=== PATIENT | female | born 1940 | race Caucasian/White ===

== ENCOUNTER 2018-11-21 09:10 | Outpatient (CLI) | payer MEDICARE, SELFPAY ==
[2018-11-21 09:30] VITALS: BMI 28.9
[2018-11-21 09:59] LABS: Hematocrit 28.1 % (37.0-47.0); Hemoglobin 8.6 g/dL (12.2-16.2)
--- NOTE | 2018-11-21 11:53 | PC.NURSE ---
1045: Spoke with Dr. Best on H/H from [place] being Hgb, 7.0 and Hct 22.5. Lab at [facility] is resulted as Hgb, 8.6, Hct 28.1. Clarifying if there is a need to still transfuse 2 units? Per Dr. Best he still wants patient to transfuse 2 units of PRBC's. 1105: Lab called patient has an antibody. Spoke with Dr. Best at this time, ok to hold blood transfusion today and give tomorrow 11-22-18. Called and spoke with patient's nurse Simi at [facility]. Updated her on patient. Patient will come back to [facility] tomorrow around 0900 to receive ordered blood transfusion.
== END 2018-11-21 11:53 | disposition home or self-care (01) ==
PROVIDERS: PCP Nurse Practitioner Family; Visit Provider Nurse Practitioner Family
DX: D64.9 Anemia, unspecified (principal)
CPT/HCPCS: 36415; 36430; 85014; 85018; 86850; 86870

== ENCOUNTER 2018-11-22 08:58 | Inpatient (IN) ==
--- NOTE | 2018-11-22 14:46 | Non-Invasive Vascular Report ---
"Venous Exam IMPRESSIONS No evidence of deep or superficial vein thrombosis involving the right lower extremity and left lower extremity History: Bilateral lower extremity pain. Edema of the right leg. PMH: Deep vein thrombosis. Factor V Leiden. Risk factors: Hypertension. Obese. Complete lower extremity venous duplex evaluation. Doppler flow study including spectral analysis, color and rivas scale imaging. Location: Bedside. Patient status: Inpatient. Tables: Venous flow and imaging: + + + + |Location |Overall |Flow properties | + + + + |Right common femoral |Patent |Normal phasicity; | | | |spontaneous; normal | | | |augmentation; compressible | + + + + |Right saphenofemoral |Patent |Compressible | |junction | | | + + + + |Right profunda femoral |Patent |Compressible | + + + + |Right femoral |Patent |Normal phasicity; | | | |spontaneous; normal | | | |augmentation; compressible;| | | |no reflux | + + + + |Right greater saphenous |Patent |Normal phasicity; | | | |spontaneous; normal | | | |augmentation; compressible | + + + + |Right popliteal |Difficult | | | |study | | + + + + |Right posterior tibial |Patent |Compressible | + + + + |Right peroneal |Patent |Compressible | + + + + |Right gastrocnemius |Difficult | | | |study | | + + + + |Right soleal |Difficult | | | |study | | + + + + |Left common femoral |Patent |Normal phasicity; | | | |spontaneous; normal | | | |augmentation; compressible | + + + + |Left saphenofemoral junction|Patent |Compressible | + + + + |Left profunda femoral |Patent |Compressible | + + + + |Left femoral |Patent |Normal phasicity; | | | |spontaneous; normal | | | |augmentation; compressible | + + + + |Left greater saphenous |Patent |Normal phasicity; | | | |spontaneous; normal | | | |augmentation; compressible | + + + + |Left popliteal |Difficult | | | |study | | + + + + |Left posterior tibial |Patent |Compressible | + + + + |Left peroneal |Patent |Compressible | + + + + |Left gastrocnemius |Difficult | | | |study | | + + + + |Left soleal |Difficult | | | |study | | + + + + (Report amended ) Electronically signed by: Malcolm Calixto [id number]"
[2018-11-22 14:53] LABS: Basophils # 0.1 K/mm3 (0-0.2); Eosinophils # 0.1 K/mm3 (0.0-0.4); Eosinophils % 0.7 % (0.1-12.0); Hematocrit 26.1 % (37.0-47.0); Hemoglobin 8.3 g/dL (12.2-16.2); Lymphocytes # 1.5 K/mm3 (0.7-4.5); Lymphocytes % 20.4 % (10-50); Mean Corpuscular HGB Conc 31.8 g/dL (31.8-35.4); Mean Corpuscular Hemoglobin 27.7 pg (27.0-31.2); Mean Corpuscular Volume 87.1 fl (81-99); Monocytes # 0.7 K/mm3 (0.1-1.0); Monocytes % 8.9 % (1.7-9.3); Neutrophils # 5.2 K/mm3 (1.8-7.8); Platelet Count 425 K/mm3 (142-424); Red Blood Count 2.99 M/mm3 (4.20-5.40); Red Cell Distribution Width 17.8 % (11.5-17.5); White Blood Count 7.5 K/mm3 (4.8-10.8)
[2018-11-22 14:59] LABS: INR 1.54 (0.9-1.1); Prothrombin Time 15.7 seconds (9.4-11.8)
[2018-11-22 15:03] LABS: Activated Partial Thrombo Time 49.1 seconds (23.6-34.0)
[2018-11-22 15:10] LABS: Alanine Aminotransferase 16 U/L (12-78); Albumin Level 1.1 gm/dL (3.4-5.0); Albumin/Globulin Ratio 0.2 (1.1-1.8); Alkaline Phosphatase 66 U/L (46-116); Anion Gap 8.1 mEq/L (5-15); Aspartate Amino Transferase 22 U/L (15-37); Bilirubin,Total 1.1 mg/dL (0.2-1.0); Blood Urea Nitrogen 15 mg/dL (7-18); Calcium 8.3 mg/dL (8.5-10.1); Carbon Dioxide 30 mmol/L (21.0-32.0); Chloride 101 mmol/L (98-107); Glucose 111 mg/dL (74-106); Potassium 4.1 mmoL/L (3.5-5.1); Sodium 135 mmol/L (136-145); Total Protein,Serum 7.1 gm/dL (6.4-8.2)
--- NOTE | 2018-11-22 15:26 | History & Physical Report ---
*Admission Date: 11/22/18 <Nisha Jacinto - 11/22/18 15:41> *Chief complaint: fatigue, cough <Nisha Jacinto 11/22/18 15:41> *History of present illness: Ms. Lang is a 77yo female who just recently moved from a nursing Center in [place] to [facility] to be closer to family members. She had several hospitalizations in the Fall of 2018 after suffering a fall and a possible stroke and then began residing in the long-term. The patient is currently in a respite bed at [facility] [place] [facility] awaiting a skilled bed. She was seen by Nanette Hanna at the long-term on 11/20/18. The patient had been running a low-grade fever, therefore labs, a U/A, and a chest x-ray were ordered. Her CBC showed a hemoglobin of 7.0 and a hematocrit of 22.5. Her BUN and creatinine were normal. She had a UA showing turbid urine with blood present but the culture was normal. A blood transfusion was ordered on an outpatient basis and the patient had a repeat H&H done at the time of blood typing showing a hemoglobin of 8.6 and hematocrit of 28.1. Her iron was low at 12 therefore iron supplementation was ordered. She presented to the infusion lab today to receive the blood, at which time her chest x-ray came back showing a left perihilar and right superior perihilar pneumonia. She has continued with fever, decreased appetite, has developed a cough and did feel poorly, therefore Dr. Best directly admitted her for treatment of her pneumonia and anemia. Of note she [place] had some recent swelling and pain in her entire right leg. 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 A Doppler will be ordered of the right leg. <Nisha Jacinto 11/22/18 15:41> [facility] History Medical History: Reports:: Cerebrovascular Accident, Deep Vein Thrombosis, Dementia, Depression, Diabetes Mellitus Type 2, Heart Murmur, Hyperlipidemia, MRSA, Transient Ischemic Attacks (TIA) <Nisha Jacinto 11/22/18 15:41> *Have you ever received a pneumonia vaccine?: Yes <Nisha Jacinto 11/22/18 15:41> *Have you received a flu vaccine this season?: Yes <Nisha Jacinto 11/22/18 15:41> Other Medical History: Reports: Anemia, Arthritis (OSTEOARTHRITIS) <Nisha Jacinto 11/22/18 15:41> Comment:: Thrombophilia, Acute necrotizing hemorrhagic encephalopathy, Spinal Stenosis, DDD, Mixed incontinence, Factor 5 deficiency with DVT's, Neuralgia and neuritis, repeated falls, snf use anticoagulant, osteoporosis, compression fx T12, Vitamin B12 deficiency, thyroid cyst <Nisha Jacinto 11/22/18 15:41> Laterality Cases: Bilateral: Tonsillectomy <Nisha Jacinto 11/22/18 15:41> Other Surgeries: Yes: Hysterectomy-Total, Other (BACK SX, Vein ablation x 5) <Nisha Jacinto 11/22/18 15:41> - *Social History Smoking Status: Never smoker <Nisha Jacinto 11/22/18 15:41> Alcohol Intake: never <Nisha Jacinto 11/22/18 15:41> *Occupational Status:: disabled <Nisha Jacinto 11/22/18 15:41> Housing: long-term <Nisha Jacinto 11/22/18 15:41> Household Members: none <Nisha Jacinto 11/22/18 15:41> *Travel in the last 8 weeks: Inside the [place] <Nisha Jacinto 11/22/18 15:41> - Psychiatric History Expresses thoughts of harming self/others: None <Nisha Jacinto 11/22/18 15:41> Suicide Plan Description: No Plan <Nisha Jacinto 11/22/18 15:41> Family Hx:: Bleeding Disorder, Cancer (Lung, colon, pancreatic, leukemia), Coronary Artery Disease, Diabetes, Heart Attack, Stroke, Other (Factor 5 Deficiency) <Nisha Jacinto 11/22/18 15:41> Review of Systems - Constitutional Reports fatigue, Reports fever(s), Reports malaise, Reports weakness <Nisha Jacinto 11/22/18 15:41> - Eyes Denies blurry vision, Denies double vision <Nisha Jacinto 11/22/18 15:41> - ENT Denies nasal congestion, Denies sore throat <Nisha Jacinto 11/22/18 15:41> - *Cardiovascular Denies chest pain, Denies rapid, pounding, or irregular heartbeat <Nisha Jacinto 11/22/18 15:41> - *Respiratory Reports chest congestion, Reports cough, Reports shortness of breath with activity <Nisha Jacinto 11/22/18 15:41> - *Gastrointestinal Denies abdominal pain, Denies loose stools, Denies nausea, Denies vomiting <Nisha Jacinto 11/22/18 15:41> - *Genitourinary Reports blood in urine, Denies difficulty urinating <Nisha Jacinto 11/22/18 15:41> - *Musculoskeletal Reports joint pain (right leg), Reports muscle weakness, Denies body aches <Nisha Jacinto 11/22/18 15:41> - *Neurologic Reports weakness, Denies headache(s), Denies dizziness <Nisha Jacinto 11/22/18 15:41> Meds Home Medications Medication Instructions Recorded Confirmed Type Acetaminophen [Tylenol] 650 mg PO Q4HP PRN 11/21/18 11/22/18 History Aspirin [Aspirin 81mg EC Tab] 81 mg PO DAILY 11/21/18 11/22/18 History Atorvastatin Calcium [Atorvastatin 10 mg PO HS 11/21/18 11/22/18 History 10mg Tab] Citalopram Hydrobromide [Celexa 20 mg PO DAILY 11/21/18 11/22/18 History 20mg Tablet] Cyanocobalamin (Vitamin B-12) 1,000 mcg PO DAILY 11/21/18 11/22/18 History [Vitamin B-12] Ferrous Sulfate [Ferrous Sulfate 325 mg PO DAILY 11/21/18 11/22/18 History 325mg Tablet] Hydrocodone/Acetaminophen [Hall 1 tab PO Q4H 11/21/18 11/23/18 History 10-325 Tablet] Magnesium Oxide [Magnesium] 400 mg PO DAILY 11/21/18 11/22/18 History Pantoprazole Sodium [Protonix 40mg 40 mg PO DAILY 11/21/18 11/22/18 History tablet] Pregabalin [Lyrica 100mg Cap] 100 mg PO TID 11/21/18 11/22/18 History Rivaroxaban [Xarelto 20mg Tablet] 20 mg PO HS 11/21/18 11/22/18 History fentaNYL [Duragesic] 50 mcg TD DIRECTED 11/21/18 11/22/18 History <Mustapha Best - 11/23/18 08:20> Allergies Allergy/AdvReac Type Severity Reaction Status Date / Time No Known Allergies Allergy Verified 11/21/18 09:32 <Mustapha Best - 11/23/18 08:20> Exam Vital signs and Labs for Last 24 Hours: Temp Pulse Resp BP Pulse Ox 101 F H 92 H 16 124/69 89 L 11/23/18 08:00 11/23/18 08:00 11/23/18 08:00 11/23/18 08:00 11/23/18 08:00 Laboratory Results - last 24 hr 11/22/18 14:30: WBC 7.5, RBC 2.99 L, Hgb 8.3 L, Hct 26.1 L, MCV 87.1, MCH 27.7, MCHC 31.8, RDW 17.8 H, Plt Count 425 H, MPV 7.0 L, Neut % (Auto) 70.0, Lymph % (Auto) 20.4, [place] % (Auto) 8.9, Eos % (Auto) 0.7, Baso % (Auto) 1.0, Neut # (Auto) 5.2, Lymph # (Auto) 1.5, [place] # (Auto) 0.7, Eos # (Auto) 0.1, Baso # (Auto) 0.1 11/22/18 14:30: PT 15.7 H, INR 1.54 H, APTT 49.1 H, D-Dimer 4250 H* 11/22/18 14:30: Sodium 135 L, Potassium 4.1, Chloride 101, Carbon Dioxide 30, Anion Gap 8.1, BUN 15, Creatinine 0.84, Estimated Creat Clear 61, Estimated GFR 66, Est GFR ( Amer) 80, Glucose 111 H, Calcium 8.3 L, Total Bilirubin 1.1 H, AST 22, ALT 16, Alkaline Phosphatase 66, Troponin I < 0.02, Total Protein 7.1, Albumin 1.1 L, Globulin 6.0 H, Albumin/Globulin Ratio 0.2 L 11/22/18 17:30: Influenza Type A Ag Negative, Influenza Type B Ag Negative 11/22/18 20:33: Mycoplasma pneumon IgM Non-reactive 11/22/18 20:33: WBC 7.5, RBC 3.51 L, Hgb 9.7 L D, Hct 30.4 L, MCV 86.5, MCH 27.5, MCHC 31.7 L, RDW 17.4, Plt Count 388, MPV 7.0 L, Neut % (Auto) 77.6, Lymph % (Auto) 15.2, [place] % (Auto) 6.3, Eos % (Auto) 0.7, Baso % (Auto) 0.2, Neut # (Auto) 5.8, Lymph # (Auto) 1.1, [place] # (Auto) 0.5, Eos # (Auto) 0.1, Baso # (Auto) 0.0 11/22/18 20:33: Sodium 135 L, Potassium 3.8, Chloride 100, Carbon Dioxide 31, Anion Gap 7.8, BUN 16, Creatinine 0.90, Estimated Creat Clear 61, Estimated GFR 61, Est GFR ( Amer) 73, Glucose 146 H D, Calcium 8.5 11/23/18 06:01: POC Glucose 94 <Mustapha Best - 11/23/18 08:20> Temp Pulse Resp BP Pulse Ox 98.6 F 81 18 112/57 L 95 11/22/18 13:44 11/22/18 13:44 11/22/18 13:44 11/22/18 13:44 11/22/18 13:44 <Nisha Jacinto - 11/22/18 15:41> I & O for Last 24 hours: Intake & Output 11/20/18 11/21/18 11/22/18 11/23/18 11:59 11:59 11:59 11:59 Intake Total 0 / 0 860 / 860 Output Total 0 / 0 Balance 0 / 0 860 / 860 Weight 181 lb 6 oz <Mustapha Best - 11/23/18 08:20> Intake & Output 11/20/18 11/21/18 11/22/18 11/23/18 11:59 11:59 11:59 11:59 Intake Total 0 / 0 250 / 250 Balance 0 / 0 250 / 250 Weight 181 lb 6 oz <Nisha Jacinto 11/22/18 15:41> - Constitutional Comments: Patient does not appear to feel well <Nisha Jacinto 11/22/18 15:41> - *Routine HEENT Exam Head: Present: normocephalic, atraumatic <Nisha Jacinto 11/22/18 15:41> Eye: Present: EOMI, PERRL <Nisha Jacinto 11/22/18 15:41> ENT: Present: mucous membranes dry <Nisha Jacinto 11/22/18 15:41> - *Routine Neck Exam Present: supple. Absent: lymphadenopathy <Nisha Jacinto 11/22/18 15:41> - *Routine Respiratory Exam Present: rales (left mid back and base). Absent: wheezes <Nisha Jacinto 11/22/18 15:41> - *Routine Cardiovascular Exam Present: RRR <Nisha Jacinto 11/22/18 15:41> - *Routine Abdominal Exam Present: soft, normoactive bowel sounds. Absent: tenderness <Nisha Jacinto 11/22/18 15:41> - *Routine Extremities Exam Present: edema (right lower leg, the knee and ca are swollen and very ttp, patient is unable to move that leg d/t pain) <Nisha Jacinto 11/22/18 15:41> - *Routine Skin Exam Present: pallor. Absent: rash <Nisha Jacinto 11/22/18 15:41> - *Routine Neurological Exam Present: motor deficit, altered mental status (mildly confused but can answer questions) <Nisha Jacinto 11/22/18 15:41> H&P: Result - Impressions Venous Doppler - no DVT <Nisha Jacinto 11/22/18 15:41> Assessment and Plan (1) HCAP (healthcare-associated pneumonia) Current visit: Yes Status: Acute Category: Medical Code(s): J18.9 - Pneumonia, unspecified organism (2) Iron deficiency anemia Current visit: Yes Status: Acute Category: Medical Code(s): D50.9 - Iron deficiency anemia, unspecified (3) Elevated d-dimer Current visit: Yes Status: Acute Category: Medical Code(s): R79.89 - Other specified abnormal findings of blood chemistry (4) History of CVA (cerebrovascular accident) Current visit: Yes Status: Chronic Category: Medical Code(s): Z86.73 - Personal history of transient ischemic attack (TIA), and cerebral infarction without residual deficits (5) Type 2 diabetes mellitus Current visit: Yes Status: Chronic Category: Medical Code(s): E11.9 - Type 2 diabetes mellitus without complications (6) Hyperlipidemia Current visit: Yes Status: Chronic Category: Medical Code(s): E78.5 - Hyperlipidemia, unspecified (7) History of encephalopathy Current visit: Yes Status: Chronic Category: Medical Code(s): Z86.69 - Personal history of other diseases of the nervous system and sense organs (8) Spinal stenosis Current visit: Yes Status: Chronic Category: Medical Code(s): M48.00 - Spinal stenosis, site unspecified (9) Factor 5 Leiden mutation, heterozygous Current visit: Yes Status: Chronic Category: Medical Code(s): D68.51 - Activated protein C resistance (10) Obstructive sleep apnea Current visit: Yes Status: Chronic Category: Medical Code(s): G47.33 - Obstructive sleep apnea (adult) (pediatric) (11) Osteoporosis Current visit: Yes Status: Chronic Category: Medical Code(s): M81.0 - Age-related osteoporosis without current pathological fracture (12) Dementia Current visit: Yes Status: Chronic Category: Medical Code(s): F03.90 - Unspecified dementia without behavioral disturbance <Nisha Jacinto - 11/22/18 14:51> (1) HCAP (healthcare-associated pneumonia) Current visit: Yes Status: Acute Category: Medical Code(s): J18.9 - Pneumonia, unspecified organism (2) Iron deficiency anemia Current visit: Yes Status: Acute Category: Medical Code(s): D50.9 - Iron deficiency anemia, unspecified (3) Elevated d-dimer Current visit: Yes Status: Acute Category: Medical Code(s): R79.89 - Other specified abnormal findings of blood chemistry (4) History of CVA (cerebrovascular accident) Current visit: Yes Status: Chronic Category: Medical Code(s): Z86.73 - Personal history of transient ischemic attack (TIA), and cerebral infarction without residual deficits (5) Type 2 diabetes mellitus Current visit: Yes Status: Chronic Category: Medical Code(s): E11.9 - Type 2 diabetes mellitus without complications (6) Hyperlipidemia Current visit: Yes Status: Chronic Category: Medical Code(s): E78.5 - Hyperlipidemia, unspecified (7) History of encephalopathy Current visit: Yes Status: Chronic Category: Medical Code(s): Z86.69 - Personal history of other diseases of the nervous system and sense organs (8) Spinal stenosis Current visit: Yes Status: Chronic Category: Medical Code(s): M48.00 - Spinal stenosis, site unspecified (9) Factor 5 Leiden mutation, heterozygous Current visit: Yes Status: Chronic Category: Medical Code(s): D68.51 - Activated protein C resistance (10) Obstructive sleep apnea Current visit: Yes Status: Chronic Category: Medical Code(s): G47.33 - Obstructive sleep apnea (adult) (pediatric) (11) Osteoporosis Current visit: Yes Status: Chronic Category: Medical Code(s): M81.0 - Age-related osteoporosis without current pathological fracture (12) Dementia Current visit: Yes Status: Chronic Category: Medical Code(s): F03.90 - Unspecified dementia without behavioral d isturbance <NasirMustapha Cody - 11/23/18 08:20> - Assessment and plan all Dx Assessment and Plan for all problems:: Concur with H&P. She has pneumonia. Due to findings of leg swelling, recent air travel and hx of Factor V Leiden, need to r/o DVT and/or PE. <Mustapha Best - 11/23/18 08:20> The patient was directly admitted. Venous doppler is negative but D-dimer is elevated. A CXR has already been ordered. Will get a CTA as well to r/o PE. Will also get an EKG and labs. Will continue blood transfusion. Patient has been placed on oxygen d/t sats in the low 90's and SOA. <Nisha Jacinto - 11/22/18 15:41>
[2018-11-22 20:50] LABS: Basophils % 0.2 % (0.1-2.0); Eosinophils # 0.1 K/mm3 (0.0-0.4); Eosinophils % 0.7 % (0.1-12.0); Hematocrit 30.4 % (37.0-47.0); Lymphocytes # 1.1 K/mm3 (0.7-4.5); Lymphocytes % 15.2 % (10-50); Mean Corpuscular HGB Conc 31.7 g/dL (31.8-35.4); Mean Corpuscular Hemoglobin 27.5 pg (27.0-31.2); Mean Corpuscular Volume 86.5 fl (81-99); Monocytes # 0.5 K/mm3 (0.1-1.0); Monocytes % 6.3 % (1.7-9.3); Neutrophils # 5.8 K/mm3 (1.8-7.8); Neutrophils % 77.6 % (37.0-80.0); Platelet Count 388 K/mm3 (142-424); Red Blood Count 3.51 M/mm3 (4.20-5.40); Red Cell Distribution Width 17.4 % (11.5-17.5); White Blood Count 7.5 K/mm3 (4.8-10.8)
[2018-11-22 20:55] LABS: Hemoglobin 9.7 g/dL (12.2-16.2)
[2018-11-22 20:56] LABS: Anion Gap 7.8 mEq/L (5-15); Calcium 8.5 mg/dL (8.5-10.1); Potassium 3.8 mmoL/L (3.5-5.1)
--- NOTE | 2018-11-23 08:05 | Pharmacy Consult Notes ---
[facility] Pharmacy VTE Monitoring - Patient Demographics Admission date: 11/22/18 Report Date: 11/23/18 Time: 08:05 Allergies/Adverse Reactions: Patient Allergies No Known Allergies Allergy (Verified 11/21/18 09:32) Height: 1.75 m Weight: 82.27 kg Patient Problems: Current Active Problems Iron deficiency anemia (Acute) HCAP (healthcare-associated pneumonia) (Acute) Elevated d-dimer (Acute) History of CVA (cerebrovascular accident) (Chronic) Type 2 diabetes mellitus (Chronic) Hyperlipidemia (Chronic) History of encephalopathy (Chronic) Spinal stenosis (Chronic) Factor 5 Leiden mutation, heterozygous (Chronic) Obstructive sleep apnea (Chronic) Osteoporosis (Chronic) Dementia (Chronic) - VTE Risk Labs: VTE Related Lab Results Hgb 9.7 g/dL (12.2-16.2) L D 11/22/18 20:33 Hct 30.4 % (37.0-47.0) L 11/22/18 20:33 Plt Count 388 K/mm3 (142-424) 11/22/18 20:33 PT 15.7 seconds (9.4-11.8) H 11/22/18 14:30 INR 1.54 (0.9-1.1) H 11/22/18 14:30 APTT 49.1 seconds (23.6-34.0) H 11/22/18 14:30 BUN 16 mg/dL (7-18) 11/22/18 20:33 Creatinine 0.90 mg/dL (0.55-1.02) 11/22/18 20:33 Estimated Creat Clear 61 mL/min (50-200) 11/22/18 20:33 Was VTE Risk Assessment Performed: Yes VTE Score: 2 VTE Risk Level: Very Low Risk Clinical Trial Participant: No - Prophylaxis VTE Prophylaxis Ordered?: Yes Types of VTE Prophylaxis: TEDS Knee High
--- NOTE | 2018-11-23 08:24 | Progress Note ---
<Nisha Jacinto - Last Filed: 11/23/18 08:21> Internal Medicine - PN: Subj *Date: 11/23/18 *Time: 08:21 Interval history: Patient states she is feeling a little bit better today. She is still complaining of pain in her right leg. Her nurse states they were unable to get a urine sample because she refused the in and out cath. She has been eating a little bit better and feel better after getting blood. She is still short of breath. Exam Vital signs and Labs for Last 24 Hours: Temp Pulse Resp BP Pulse Ox 101 F H 92 H 16 124/69 89 L 11/23/18 08:00 11/23/18 08:00 11/23/18 08:00 11/23/18 08:00 11/23/18 08:00 Laboratory Results - last 24 hr 11/22/18 14:30: WBC 7.5, RBC 2.99 L, Hgb 8.3 L, Hct 26.1 L, MCV 87.1, MCH 27.7, MCHC 31.8, RDW 17.8 H, Plt Count 425 H, MPV 7.0 L, Neut % (Auto) 70.0, Lymph % (Auto) 20.4, [place] % (Auto) 8.9, Eos % (Auto) 0.7, Baso % (Auto) 1.0, Neut # (Auto) 5.2, Lymph # (Auto) 1.5, [place] # (Auto) 0.7, Eos # (Auto) 0.1, Baso # (Auto) 0.1 11/22/18 14:30: PT 15.7 H, INR 1.54 H, APTT 49.1 H, D-Dimer 4250 H* 11/22/18 14:30: Sodium 135 L, Potassium 4.1, Chloride 101, Carbon Dioxide 30, Anion Gap 8.1, BUN 15, Creatinine 0.84, Estimated Creat Clear 61, Estimated GFR 66, Est GFR ( Amer) 80, Glucose 111 H, Calcium 8.3 L, Total Bilirubin 1.1 H, AST 22, ALT 16, Alkaline Phosphatase 66, Troponin I < 0.02, Total Protein 7.1, Albumin 1.1 L, Globulin 6.0 H, Albumin/Globulin Ratio 0.2 L 11/22/18 17:30: Influenza Type A Ag Negative, Influenza Type B Ag Negative 11/22/18 20:33: Mycoplasma pneumon IgM Non-reactive 11/22/18 20:33: WBC 7.5, RBC 3.51 L, Hgb 9.7 L D, Hct 30.4 L, MCV 86.5, MCH 27.5, MCHC 31.7 L, RDW 17.4, Plt Count 388, MPV 7.0 L, Neut % (Auto) 77.6, Lymph % (Auto) 15.2, [place] % (Auto) 6.3, Eos % (Auto) 0.7, Baso % (Auto) 0.2, Neut # (Auto) 5.8, Lymph # (Auto) 1.1, [place] # (Auto) 0.5, Eos # (Auto) 0.1, Baso # (Auto) 0.0 11/22/18 20:33: Sodium 135 L, Potassium 3.8, Chloride 100, Carbon Dioxide 31, Anion Gap 7.8, BUN 16, Creatinine 0.90, Estimated Creat Clear 61, Estimated GFR 61, Est GFR ( Amer) 73, Glucose 146 H D, Calcium 8.5 11/23/18 06:01: POC Glucose 94 I & O for Last 24 hours: Intake & Output 11/20/18 11/21/18 11/22/18 11/23/18 11:59 11:59 11:59 11:59 Intake Total 0 / 0 860 / 860 Output Total 0 / 0 Balance 0 / 0 860 / 860 Weight 181 lb 6 oz - Constitutional no acute distress - *Routine Respiratory Exam Present: rales (bilateral) - *Routine Cardiovascular Exam Present: RRR - *Routine Abdominal Exam Present: soft, normoactive bowel sounds. Absent: tenderness - *Routine Extremities Exam Present: edema (bilateral LE's but worse on the right side) Comments: Patient still unable to move right leg and the whole leg is tender Assessment and Plan (1) HCAP (healthcare-associated pneumonia) Current visit: Yes Status: Acute Category: Medical Code(s): J18.9 - Pneumonia, unspecified organism (2) Iron deficiency anemia Current visit: Yes Status: Acute Category: Medical Code(s): D50.9 - Iron deficiency anemia, unspecified (3) Elevated d-dimer Current visit: Yes Status: Acute Category: Medical Code(s): R79.89 - Other specified abnormal findings of blood chemistry (4) History of CVA (cerebrovascular accident) Current visit: Yes Status: Chronic Category: Medical Code(s): Z86.73 - Personal history of transient ischemic attack (TIA), and cerebral infarction without residual deficits (5) Type 2 diabetes mellitus Current visit: Yes Status: Chronic Category: Medical Code(s): E11.9 - Type 2 diabetes mellitus without complications (6) Hyperlipidemia Current visit: Yes Status: Chronic Category: Medical Code(s): E78.5 - Hyperlipidemia, unspecified (7) History of encephalopathy Current visit: Yes Status: Chronic Category: Medical Code(s): Z86.69 - Personal history of other diseases of the nervous system and sense organs (8) Spinal stenosis Current visit: Yes Status: Chronic Category: Medical Code(s): M48.00 - Spinal stenosis, site unspecified (9) Factor 5 Leiden mutation, heterozygous Current visit: Yes Status: Chronic Category: Medical Code(s): D68.51 - Activated protein C resistance (10) Obstructive sleep apnea Current visit: Yes Status: Chronic Category: Medical Code(s): G47.33 - Obstructive sleep apnea (adult) (pediatric) (11) Osteoporosis Current visit: Yes Status: Chronic Category: Medical Code(s): M81.0 - Age- related osteoporosis without current pathological fracture (12) Dementia Current visit: Yes Status: Chronic Category: Medical Code(s): F03.90 - Unspecified dementia without behavioral disturbance - Assessment and plan all Dx Assessment and Plan for all problems:: Will continue antibiotics for pneumonia. Patient's H&H improved with transfusion. We will get x-rays of the right leg today. <Mustapha Best - Last Filed: 11/23/18 18:26> Exam Vital signs and Labs for Last 24 Hours: Temp Pulse Resp BP Pulse Ox 97.9 F 70 16 104/55 L 96 11/23/18 15:56 11/23/18 15:56 11/23/18 15:56 11/23/18 15:56 11/23/18 15:56 Laboratory Results - last 24 hr 11/22/18 20:33: Mycoplasma pneumon IgM Non-reactive 11/22/18 20:33: WBC 7.5, RBC 3.51 L, Hgb 9.7 L D, Hct 30.4 L, MCV 86.5, MCH 27.5, MCHC 31.7 L, RDW 17.4, Plt Count 388, MPV 7.0 L, Neut % (Auto) 77.6, Lymph % (Auto) 15.2, [place] % (Auto) 6.3, Eos % (Auto) 0.7, Baso % (Auto) 0.2, Neut # (Auto) 5.8, Lymph # (Auto) 1.1, [place] # (Auto) 0.5, Eos # (Auto) 0.1, Baso # (Auto) 0.0 11/22/18 20:33: Sodium 135 L, Potassium 3.8, Chloride 100, Carbon Dioxide 31, Anion Gap 7.8, BUN 16, Creatinine 0.90, Estimated Creat Clear 61, Estimated GFR 61, Est GFR ( Amer) 73, Glucose 146 H D, Calcium 8.5 11/23/18 06:01: POC Glucose 94 11/23/18 09:26: WBC 6.4, RBC 3.36 L, Hgb 9.0 L, Hct 29.1 L, MCV 86.8, MCH 27.0, MCHC 31.1 L, RDW 17.6 H, Plt Count 391, MPV 7.4, Neut % (Auto) 74.5, Lymph % (Auto) 13.9, [place] % (Auto) 10.1 H, Eos % (Auto) 1.3, Baso % (Auto) 0.2, Neut # (Auto) 4.8, Lymph # (Auto) 0.9, [place] # (Auto) 0.6, Eos # (Auto) 0.1, Baso # (Auto) 0.0 11/23/18 09:26: Sodium 135 L, Potassium 4.1, Chloride 100, Carbon Dioxide 30, Anion Gap 9.1, BUN 14, Creatinine 0.83, Estimated Creat Clear 61, Estimated GFR 67, Est GFR ( Amer) 81, Glucose 127 H, Calcium 8.1 L, Total Bilirubin 0.7, AST 17, ALT 12, Alkaline Phosphatase 67, Total Protein 7.1, Albumin 1.1 L, Globulin 6.0 H, Albumin/Globulin Ratio 0.2 L, TSH 6.14 H I & O for Last 24 hours: Intake & Output 11/21/18 11/22/18 11/23/18 11/24/18 11:59 11:59 11:59 11:59 Intake Total 0 / 0 860 / 860 Output Total 0 / 0 Balance 0 / 0 860 / 860 Weight 181 lb 6 oz Assessment and Plan (1) HCAP (healthcare-associated pneumonia) Current visit: Yes Status: Acute Category: Medical Code(s): J18.9 - Pneumonia, unspecified organism (2) Iron deficiency anemia Current visit: Yes Status: Acute Category: Medical Code(s): D50.9 - Iron deficiency anemia, unspecified (3) Elevated d-dimer Current visit: Yes Status: Acute Category: Medical Code(s): R79.89 - Other specified abnormal findings of blood chemistry (4) History of CVA (cerebrovascular accident) Current visit: Yes Status: Chronic Category: Medical Code(s): Z86.73 - Personal history of transient ischemic attack (TIA), and cerebral infarction without residual deficits (5) Type 2 diabetes mellitus Current visit: Yes Status: Chronic Category: Medical Code(s): E11.9 - Type 2 diabetes mellitus without complications (6) Hyperlipidemia Current visit: Yes Status: Chronic Category: Medical Code(s): E78.5 - Hyperlipidemia, unspecified (7) History of encephalopathy Current visit: Yes Status: Chronic Category: Medical Code(s): Z86.69 - Personal history of other diseases of the nervous system and sense organs (8) Spinal stenosis Current visit: Yes Status: Chronic Category: Medical Code(s): M48.00 - Spinal stenosis, site unspecified (9) Factor 5 Leiden mutation, heterozygous Current visit: Yes Status: Chronic Category: Medical Code(s): D68.51 - Activated protein C resistance (10) Obstructive sleep apnea Current visit: Yes Status: Chronic Category: Medical Code(s): G47.33 - Obstructive sleep apnea (adult) (pediatric) (11) Osteoporosis Current visit: Yes Status: Chronic Category: Medical Code(s): M81.0 - Age- related osteoporosis without current pathological fracture (12) Dementia Current visit: Yes Status: Chronic Category: Medical Code(s): F03.90 - Unspecified dementia without behavioral disturbance - Assessment and plan all Dx Assessment and Plan for all problems:: Patient seen and examined. She is more alert but still confused. No respiratory distress. Concur with above assessment and plan.
[2018-11-23 10:10] LABS: Albumin Level 1.1 gm/dL (3.4-5.0); Albumin/Globulin Ratio 0.2 (1.1-1.8); Anion Gap 9.1 mEq/L (5-15); Bilirubin,Total 0.7 mg/dL (0.2-1.0); Calcium 8.1 mg/dL (8.5-10.1); Potassium 4.1 mmoL/L (3.5-5.1); Thyroid Stimulating Hormone 6.14 uIU/ml (0.358-3.740); Total Protein,Serum 7.1 gm/dL (6.4-8.2)
[2018-11-23 10:58] LABS: Basophils % 0.2 % (0.1-2.0); Eosinophils # 0.1 K/mm3 (0.0-0.4); Eosinophils % 1.3 % (0.1-12.0); Hematocrit 29.1 % (37.0-47.0); Lymphocytes # 0.9 K/mm3 (0.7-4.5); Lymphocytes % 13.9 % (10-50); Mean Corpuscular HGB Conc 31.1 g/dL (31.8-35.4); Mean Corpuscular Volume 86.8 fl (81-99); Mean Platelet Volume 7.4 fl (7.4-10.4); Monocytes # 0.6 K/mm3 (0.1-1.0); Monocytes % 10.1 % (1.7-9.3); Neutrophils # 4.8 K/mm3 (1.8-7.8); Neutrophils % 74.5 % (37.0-80.0); Platelet Count 391 K/mm3 (142-424); Red Blood Count 3.36 M/mm3 (4.20-5.40); Red Cell Distribution Width 17.6 % (11.5-17.5); White Blood Count 6.4 K/mm3 (4.8-10.8)
--- NOTE | 2018-11-23 11:59 | Cardiology Report ---
PROCEDURE: 2-D M-mode and color Doppler study INDICATIONS FOR THE TEST: Chest pain COPD Heart Murmur+ Tobacco Smoking Palpitations Fatigue Syncope Edema+ Hypertension+Diabetes Mellitus Rheumatic Fever SOB+UP+Obesity Hyperlipidemia Family History HD Additional History pneumonia PATIENT INFORMATION HEIGHT: 69 WEIGHT: 181 GENDER: Female B/P: 124/69 2-D/M-MODE INTERPRETATION: 2-D MEASUREMENTS OBSERVED VALUES IN CMS Right Ventricular Dimension (RVDd) 2.7 Interventricular Septum (Thickness)(IVsd) 1.1 Left Ventricular Internal Dimensions(LVIDd) 4.3 Left Ventricular Posterior Wall (Thickness)(LVPWd) 1.2 Aortic Root 2.7 Aortic Cusp Separation 2.1 Left Atrial Dimensions (LAD) 3.0 2D 1. Left atrium is mildly enlarged, left ventricle is normal size, mild concentric left ventricular hypertrophy, visually estimated ejection fraction 55-60% with no regional wall motion abnormality. 2. The right atrium and right ventricle are mildly enlarged with normal contractility. 3. The aortic valve is minimally thickened and fibrosed. 4. The mitral and tricuspid valve leaflets are minimally thickened and calcified. 5.The pulmonic valve is poorly visualized. 6. No significant pericardial effusion noted. DOPPLER INTERROGATION: Doppler interrogation of the aortic, mitral and tricuspid valvular presence of mild mitral and tricuspid regurgitation, calculated right ventricular systolic pressure is 41 mmHg consistent with moderate pulmonary hypertension, grade 1 diastolic dysfunction seen with tissue Doppler evidence of raised left atrial pressure. CONCLUSION: 1. Mildly enlarged left atrium, normal left ventricular size, mild concentric left ventricular hypertrophy, visually estimated ejection fraction of 55-60% with no regional wall motion abnormality, grade 1 diastolic dysfunction seen with tissue Doppler evidence of raised left atrial pressure. 2. Mildly enlarged right ventricle with normal contractility. 3. Mild mitral and tricuspid regurgitation, calculated right ventricular systolic pressure is 41 mmHg consistent with moderate pulmonary hypertension. 4. No significant pericardial effusion noted.
--- NOTE | 2018-11-23 17:31 | Consult Report ---
*Admission Date: 11/22/18 *Chief complaint: Right knee pain Review of Systems - *Neurologic Reports weakness, Denies headache(s), Denies dizziness [facility] History Medical History: Reports:: Cerebrovascular Accident, Deep Vein Thrombosis, Dementia, Depression, Diabetes Mellitus Type 2, Heart Murmur, Hyperlipidemia, MRSA, Transient Ischemic Attacks (TIA) *Have you ever received a pneumonia vaccine?: Yes *Have you received a flu vaccine this season?: Yes Other Medical History: Reports: Anemia, Arthritis (OSTEOARTHRITIS) Laterality Cases: Bilateral: Tonsillectomy Other Surgeries: Yes: Hysterectomy-Total, Other (BACK SX, Vein ablation x 5) - *Social History Smoking Status: Never smoker Alcohol Intake: never *Occupational Status:: disabled Housing: jail Household Members: none *Travel in the last 8 weeks: Inside the [place] - Psychiatric History Expresses thoughts of harming self/others: None Suicide Plan Description: No Plan Pschychiatric History:: Reports:: Depression Family Hx:: Bleeding Disorder, Cancer (Lung, colon, pancreatic, leukemia), Coronary Artery Disease, Diabetes, Heart Attack, Stroke, Other (Factor 5 Defi ciency) Meds Home Medications Medication Instructions Recorded Confirmed Type Acetaminophen [Tylenol] 650 mg PO Q4HP PRN 11/21/18 11/22/18 History Aspirin [Aspirin 81mg EC Tab] 81 mg PO DAILY 11/21/18 11/22/18 History Atorvastatin Calcium [Atorvastatin 10 mg PO HS 11/21/18 11/22/18 History 10mg Tab] Citalopram Hydrobromide [Celexa 20 mg PO DAILY 11/21/18 11/22/18 History 20mg Tablet] Cyanocobalamin (Vitamin B-12) 1,000 mcg PO DAILY 11/21/18 11/22/18 History [Vitamin B-12] Ferrous Sulfate [Ferrous Sulfate 325 mg PO DAILY 11/21/18 11/22/18 History 325mg Tablet] Hydrocodone/Acetaminophen [[place] 1 tab PO Q4H 11/21/18 11/23/18 History 10-325 Tablet] Magnesium Oxide [Magnesium] 400 mg PO DAILY 11/21/18 11/22/18 History Pantoprazole Sodium [Protonix 40mg 40 mg PO DAILY 11/21/18 11/22/18 History tablet] Pregabalin [Lyrica 100mg Cap] 100 mg PO TID 11/21/18 11/22/18 History Rivaroxaban [Xarelto 20mg Tablet] 20 mg PO HS 11/21/18 11/22/18 History fentaNYL [Duragesic] 50 mcg TD Q72H 11/21/18 11/23/18 History Allergies Allergy/AdvReac Type Severity Reaction Status Date / Time No Known Allergies Allergy Verified 11/21/18 09:32 Exam Vital signs and Labs for Last 24 Hours: Temp Pulse Resp BP Pulse Ox 97.9 F 70 16 104/55 L 96 11/23/18 15:56 11/23/18 15:56 11/23/18 15:56 11/23/18 15:56 11/23/18 15:56 Laboratory Results - last 24 hr 11/22/18 17:30: Influenza Type A Ag Negative, Influenza Type B Ag Negative 11/22/18 20:33: Mycoplasma pneumon IgM Non-reactive 11/22/18 20:33: WBC 7.5, RBC 3.51 L, Hgb 9.7 L D, Hct 30.4 L, MCV 86.5, MCH 27.5, MCHC 31.7 L, RDW 17.4, Plt Count 388, MPV 7.0 L, Neut % (Auto) 77.6, Lymph % (Auto) 15.2, [place] % (Auto) 6.3, Eos % (Auto) 0.7, Baso % (Auto) 0.2, Neut # (Auto) 5.8, Lymph # (Auto) 1.1, [place] # (Auto) 0.5, Eos # (Auto) 0.1, Baso # (Auto) 0.0 11/22/18 20:33: Sodium 135 L, Potassium 3.8, Chloride 100, Carbon Dioxide 31, Anion Gap 7.8, BUN 16, Creatinine 0.90, Estimated Creat Clear 61, Estimated GFR 61, Est GFR ( Amer) 73, Glucose 146 H D, Calcium 8.5 11/23/18 06:01: POC Glucose 94 11/23/18 09:26: WBC 6.4, RBC 3.36 L, Hgb 9.0 L, Hct 29.1 L, MCV 86.8, MCH 27.0, MCHC 31.1 L, RDW 17.6 H, Plt Count 391, MPV 7.4, Neut % (Auto) 74.5, Lymph % (Auto) 13.9, [place] % (Auto) 10.1 H, Eos % (Auto) 1.3, Baso % (Auto) 0.2, Neut # (Auto) 4.8, Lymph # (Auto) 0.9, [place] # (Auto) 0.6, Eos # (Auto) 0.1, Baso # (Auto) 0.0 11/23/18 09:26: Sodium 135 L, Potassium 4.1, Chloride 100, Carbon Dioxide 30, Anion Gap 9.1, BUN 14, Creatinine 0.83, Estimated Creat Clear 61, Estimated GFR 67, Est GFR ( Amer) 81, Glucose 127 H, Calcium 8.1 L, Total Bilirubin 0.7, AST 17, ALT 12, Alkaline Phosphatase 67, Total Protein 7.1, Albumin 1.1 L, Globulin 6.0 H, Albumin/Globulin Ratio 0.2 L, TSH 6.14 H I & O for Last 24 hours: Intake & Output 11/21/18 11/22/18 11/23/18 11/24/18 11:59 11:59 11:59 11:59 Intake Total 0 / 0 860 / 860 Output Total 0 / 0 Balance 0 / 0 860 / 860 Weight 181 lb 6 oz Narrative: Exam: General appearance: alert, active, awake Cardiovascular: regular rate & rhythm Respiratory: No respiratory distress noted, speaks in full sentences ABD: soft and non tender On examination of his right knee, the skin is intact. There is 2+ knee effusion. The knee warm to touch and is diffusely tender. There is tenderness over all 3 compartments. Knee range of movements is limited with pain and stiffness and passively she only has flexion from 10-40 degrees. All the movements are associated with pain. Within the possible range of movements, knee joint appears ligamentously stable. The extensor mechanism is intact. She is nontender over the right hip joint and right thigh. On examination of his right leg, the skin is intact. There is diffuse edema and tenderness over the leg, foot and ankle. No palpable hematoma or abscess noted. She has limited range of foot and ankle movements. Homans sign is negative. Dorsalis pedis and posterior tibial pulses are not palpable because of edema. Capillary refill is sluggish. Sensation is intact to light touch throughout. Diagnostic imaging: X-rays of the right knee, right leg performed at [facility] reviewed along with radiologist report. COMPARISON: None FINDINGS: There is destruction of the bone on both sides of the joint space of the knee involving the distal femur both medially and laterally and the proximal tibia both medially and laterally with bony fragmentation. Joint space is still present. Etiology is uncertain. Septic arthritis is considered. No fracture or dislocation is evident. IMPRESSION: Destructive changes involving the knee joint with bony fragmentation. Possible septic arthritis. Rheumatoid arthritis of the knee is an additional consideration. Dictated By: Malcolm Calixto MD Signed By: 11/23/18 1105 Results - Labs Result Diagrams: 11/24/18 06:20 11/23/18 09:26 Labs: Abnormal lab results 11/22/18 11/22/18 11/23/18 Range/Units 20:33 20:33 09:26 RBC 3.51 L 3.36 L (4.20-5.40) M/mm3 Hgb 9.7 L D 9.0 L (12.2-16.2) g/dL Hct 30.4 L 29.1 L (37.0-47.0) % MCHC 31.7 L 31.1 L (31.8-35.4) g/dL RDW 17.6 H (11.5-17.5) % MPV 7.0 L (7.4-10.4) fl [place] % (Auto) 10.1 H (1.7-9.3) % Sodium 135 L (136-145) mmol/L Glucose 146 H D (74-106) mg/dL Calcium (8.5-10.1) mg/dL Albumin (3.4-5.0) gm/dL Globulin (1.3-3.2) gm/dl Albumin/Globulin Ratio (1.1-1.8) TSH (0.358-3.740) uIU/ml 11/23/18 Range/Units 09:26 RBC (4.20-5.40) M/mm3 Hgb (12.2-16.2) g/dL Hct (37.0-47.0) % MCHC (31.8-35.4) g/dL RDW (11.5-17.5) % MPV (7.4-10.4) fl [place] % (Auto) (1.7-9.3) % Sodium 135 L (136-145) mmol/L Glucose 127 H (74-106) mg/dL Calcium 8.1 L (8.5-10.1) mg/dL Albumin 1.1 L (3.4-5.0) gm/dL Globulin 6.0 H (1.3-3.2) gm/dl Albumin/Globulin Ratio 0.2 L (1.1-1.8) TSH 6.14 H (0.358-3.740) uIU/ml H & H 11/22/18 11/22/18 11/23/18 Range/Units 14:30 20:33 09:26 Hgb 8.3 L 9.7 L D 9.0 L (12.2-16.2) g/dL Hct 26.1 L 30.4 L 29.1 L (37.0-47.0) % Coagulation 11/22/18 Range/Units 14:30 INR 1.54 H (0.9-1.1) All other labs normal. Assessment and Plan (1) HCAP (healthcare-associated pneumonia) Current visit: Yes Status: Acute Category: Medical Code(s): J18.9 - Pneumonia, unspecified organism (2) Iron deficiency anemia Current visit: Yes Status: Acute Category: Medical Code(s): D50.9 - Iron deficiency anemia, unspecified (3) Elevated d-dimer Current visit: Yes Status: Acute Category: Medical Code(s): R79.89 - Other specified abnormal findings of blood chemistry (4) History of CVA (cerebrovascular accident) Current visit: Yes Status: Chronic Category: Medical Code(s): Z86.73 - Personal history of transient ischemic attack (TIA), and cerebral infarction without residual deficits (5) Type 2 diabetes mellitus Current visit: Yes Status: Chronic Category: Medical Code(s): E11.9 - Type 2 diabetes mellitus without complications (6) Hyperlipidemia Current visit: Yes Status: Chronic Category: Medical Code(s): E78.5 - Hyperlipidemia, unspecified (7) History of encephalopathy Current visit: Yes Status: Chronic Category: Medical Code(s): Z86.69 - Personal history of other diseases of the nervous system and sense organs (8) Spinal stenosis Current visit: Yes Status: Chronic Category: Medical Code(s): M48.00 - Spinal stenosis, site unspecified (9) Factor 5 Leiden mutation, heterozygous Current visit: Yes Status: Chronic Category: Medical Code(s): D68.51 - Act ivated protein C resistance (10) Obstructive sleep apnea Current visit: Yes Status: Chronic Category: Medical Code(s): G47.33 - Obstructive sleep apnea (adult) (pediatric) (11) Osteoporosis Current visit: Yes Status: Chronic Category: Medical Code(s): M81.0 - Age- related osteoporosis without current pathological fracture (12) Dementia Current visit: Yes Status: Chronic Category: Medical Code(s): F03.90 - Unspecified dementia without behavioral disturbance - Assessment and plan all Dx Assessment and Plan for all problems:: I have reviewed the clinical, x-ray findings and progress with the patient and her family. I have discussed the possible diagnoses, natural history and management options in detail. Patient has moderate right knee effusion/swelling with edema of the right lower extremity. Her white count is within the normal range but no other inflammatory markers are available. The patient also has pneumonia for which she is on antibiotics. She is also spiking a temperature intermittently. As the x-ray findings are suspicious for erosive arthritis/septic arthritis, I have recommended aspiration of the right knee for further evaluation. Patient and family wished to proceed with this. Please see the procedure note below for details. While awaiting Gram stain/culture results, I would recommended continuation of conservative management including rest, activity modification, elevation, icing, regular NSAIDs and simple pain medication as needed. If it is confirmed that the knee joint is infected, she is likely to need further repeat aspirations or arthroscopic debridement/washout or an open procedure. I have also ordered ESR and CRP. All the questions were answered and they verbalized a good understanding. Continue medical management as per Dr. Best. Procedure note: Aspiration [right] knee joint: An informed written consent was obtained after explaining the procedure, risks, benefits and alternatives in detail. The skin was prepped in a sterile fashion with multiple chlorhexidine sticks and draped with sterile towels. Local anesthesia was obtained with 5 cc of 1% lidocaine. I then aspirated the right knee through an anterolateral approach with an 18- gauge needle under aseptic precautions. About 1 cc of bloody fluid was aspirated. No evidence of obvious infection noted on naked eye examination of the aspirate. Samples were sent for Gram stain and culture and sensitivity. Sterile dressing was applied. Patient tolerated the procedure well and there were no immediate complications. Discussed with radiologist Discussed with Dr. Best Discussed with patient's sister
[2018-11-24 06:36] LABS: Basophils % 0.2 % (0.1-2.0); Eosinophils # 0.1 K/mm3 (0.0-0.4); Eosinophils % 2.2 % (0.1-12.0); Hematocrit 28.9 % (37.0-47.0); Lymphocytes # 1.3 K/mm3 (0.7-4.5); Mean Corpuscular Hemoglobin 27.4 pg (27.0-31.2); Mean Corpuscular Volume 88.3 fl (81-99); Mean Platelet Volume 7.2 fl (7.4-10.4); Monocytes # 0.4 K/mm3 (0.1-1.0); Monocytes % 6.4 % (1.7-9.3); Neutrophils # 3.7 K/mm3 (1.8-7.8); Neutrophils % 67.2 % (37.0-80.0); Platelet Count 390 K/mm3 (142-424); Red Blood Count 3.27 M/mm3 (4.20-5.40); Red Cell Distribution Width 17.9 % (11.5-17.5); White Blood Count 5.5 K/mm3 (4.8-10.8)
--- NOTE | 2018-11-24 08:43 | Progress Note ---
Internal Medicine - PN: Subj Interval history: She rested well last night. No new complaints. Slater was not able to get much fluid from her knee last night. The specimen that was sent to the lab shows no white cells or bacteria on the Gram stain. Culture is pending. She still complains of right leg pain. Exam Vital signs and Labs for Last 24 Hours: Temp Pulse Resp BP Pulse Ox 98.8 F 98 H 17 121/69 95 11/24/18 07:50 11/24/18 07:50 11/24/18 07:50 11/24/18 07:50 11/24/18 07:50 Laboratory Results - last 24 hr 11/23/18 09:26: WBC 6.4, RBC 3.36 L, Hgb 9.0 L, Hct 29.1 L, MCV 86.8, MCH 27.0, MCHC 31.1 L, RDW 17.6 H, Plt Count 391, MPV 7.4, Neut % (Auto) 74.5, Lymph % (Auto) 13.9, [place] % (Auto) 10.1 H, Eos % (Auto) 1.3, Baso % (Auto) 0.2, Neut # (Auto) 4.8, Lymph # (Auto) 0.9, [place] # (Auto) 0.6, Eos # (Auto) 0.1, Baso # (Auto) 0.0 11/23/18 09:26: Sodium 135 L, Potassium 4.1, Chloride 100, Carbon Dioxide 30, Anion Gap 9.1, BUN 14, Creatinine 0.83, Estimated Creat Clear 61, Estimated GFR 67, Est GFR ( Amer) 81, Glucose 127 H, Calcium 8.1 L, Total Bilirubin 0.7, AST 17, ALT 12, Alkaline Phosphatase 67, Total Protein 7.1, Albumin 1.1 L, Globulin 6.0 H, Albumin/Globulin Ratio 0.2 L, TSH 6.14 H 11/23/18 09:26: ESR > 120 H 11/23/18 09:26: C-Reactive Protein 20.7 H 11/24/18 06:20: WBC 5.5, RBC 3.27 L, Hgb 9.0 L, Hct 28.9 L, MCV 88.3, MCH 27.4, MCHC 31.0 L, RDW 17.9 H, Plt Count 390, MPV 7.2 L, Neut % (Auto) 67.2, Lymph % (Auto) 24.0, [place] % (Auto) 6.4, Eos % (Auto) 2.2, Baso % (Auto) 0.2, Neut # (Auto) 3.7, Lymph # (Auto) 1.3, [place] # (Auto) 0.4, Eos # (Auto) 0.1, Baso # (Auto) 0.0 I & O for Last 24 hours: Intake & Output 11/21/18 11/22/18 11/23/18 11/24/18 11:59 11:59 11:59 11:59 Intake Total 0 / 0 860 / 860 2309 / 2309 Output Total 0 / 0 Balance 0 / 0 860 / 860 2309 / 2309 Weight 181 lb 6 oz 181 lb 6 oz Microbiology Reports for the Last 24 Hours: Microbiology 11/23/18 17:00 Aspirate - Aspirate Gram Stain - Final 11/23/18 17:00 Aspirate - Aspirate Body Fluid Culture - Preliminary Assessment and Plan (1) HCAP (healthcare-associated pneumonia) Current visit: Yes Status: Acute Category: Medical Code(s): J18.9 - Pneumonia, unspecified organism (2) Iron deficiency anemia Current visit: Yes Status: Acute Category: Medical Code(s): D50.9 - Iron deficiency anemia, unspecified (3) Elevated d-dimer Current visit: Yes Status: Acute Category: Medical Code(s): R79.89 - Other specified abnormal findings of blood chemistry (4) History of CVA (cerebrovascular accident) Current visit: Yes Status: Chronic Category: Medical Code(s): Z86.73 - Personal history of transient ischemic attack (TIA), and cerebral infarction without residual deficits (5) Type 2 diabetes mellitus Current visit: Yes Status: Chronic Category: Medical Code(s): E11.9 - Type 2 diabetes mellitus without complications (6) Hyperlipidemia Current visit: Yes Status: Chronic Category: Medical Code(s): E78.5 - Hyperlipidemia, unspecified (7) History of encephalopathy Current visit: Yes Status: Chronic Category: Medical Code(s): Z86.69 - Personal history of other diseases of the nervous system and sense organs (8) Spinal stenosis Current visit: Yes Status: Chronic Category: Medical Code(s): M48.00 - Spinal stenosis, site unspecified (9) Factor 5 Leiden mutation, heterozygous Current visit: Yes Status: Chronic Category: Medical Code(s): D68.51 - Activated protein C resistance (10) Obstructive sleep apnea Current visit: Yes Status: Chronic Category: Medical Code(s): G47.33 - Obstructive sleep apnea (adult) (pediatric) (11) Osteoporosis Current visit: Yes Status: Chronic Category: Medical Code(s): M81.0 - Age- related osteoporosis without current pathological fracture (12) Dementia Current visit: Yes Status: Chronic Category: Medical Code(s): F03.90 - Unspecified dementia without behavioral disturbance (13) Knee joint disorder Current visit: Yes Status: Acute Category: Medical Code(s): M25.9 - Joint disorder, unspecified - Assessment and plan all Dx Assessment and Plan for all problems:: Her H&H is stable. TSH is found to be elevated. Pneumonia seems to be improving. We will continue her current antibiotic regimen. She will be started on thyroid replacement. Awaiting culture on the knee aspirate and further recommendations per Dr. Slater.
--- NOTE | 2018-11-24 13:27 | Progress Note ---
Subjective Date: 11/24/18 Time: 13:15 PN: Obj Ex Vital signs: Temp Pulse Resp BP Pulse Ox 99.9 F H 89 17 103/57 L 93 L 11/24/18 11:22 11/24/18 11:22 11/24/18 11:22 11/24/18 11:22 11/24/18 11:22 Narrative: Laboratory Results - last 24 hr 11/23/18 09:26: ESR > 120 H 11/23/18 09:26: C-Reactive Protein 20.7 H 11/24/18 06:20: WBC 5.5, RBC 3.27 L, Hgb 9.0 L, Hct 28.9 L, MCV 88.3, MCH 27.4, MCHC 31.0 L, RDW 17.9 H, Plt Count 390, MPV 7.2 L, Neut % (Auto) 67.2, Lymph % (Auto) 24.0, [place] % (Auto) 6.4, Eos % (Auto) 2.2, Baso % (Auto) 0.2, Neut # (Auto) 3.7, Lymph # (Auto) 1.3, [place] # (Auto) 0.4, Eos # (Auto) 0.1, Baso # (Auto) 0.0 Exam: General appearance: alert, active, awake Cardiovascular: regular rate & rhythm Respiratory: No respiratory distress noted, speaks in full sentences ABD: soft and non tender On examination of his right knee, the skin is intact. There is 2+ knee effusion. The knee warm to touch and is diffusely tender. There is tenderness over all 3 compartments. Knee range of movements is limited with pain and stiffness and passively she only has flexion from 10-40 degrees. All the movements are associated with pain. Within the possible range of movements, knee joint appears ligamentously stable. The extensor mechanism is intact. She is nontender over the right hip joint and right thigh. On examination of his right leg, the skin is intact. There is diffuse edema and tenderness over the leg, foot and ankle. No palpable hematoma or abscess noted. She has limited range of foot and ankle movements. Homans sign is negative. Dorsalis pedis and posterior tibial pulses are not palpable because of edema. Capillary refill is sluggish. Sensation is intact to light touch throughout. Progress Note: A&P (1) HCAP (healthcare-associated pneumonia) Status: Acute Current Visit: Yes (2) Iron deficiency anemia Status: Acute Current Visit: Yes (3) Elevated d-dimer Status: Acute Current Visit: Yes (4) History of CVA (cerebrovascular accident) Status: Chronic Current Visit: Yes (5) Type 2 diabetes mellitus Status: Chronic Current Visit: Yes (6) Hyperlipidemia Status: Chronic Current Visit: Yes (7) History of encephalopathy Status: Chronic Current Visit: Yes (8) Spinal stenosis Status: Chronic Current Visit: Yes (9) Factor 5 Leiden mutation, heterozygous Status: Chronic Current Visit: Yes (10) Obstructive sleep apnea Status: Chronic Current Visit: Yes (11) Osteoporosis Status: Chronic Current Visit: Yes (12) Dementia Status: Chronic Current Visit: Yes (13) Knee joint disorder Status: Acute Current Visit: Yes Assessment and Plan for All Diagnoses:: I have again reviewed the clinical, x-ray findings and progress with the patient and her family. I have discussed the possible diagnoses, natural history and management options in detail. As the initial blind aspiration did not show any obvious evidence of infection so far, following a discussion with radiologist Dr. Underwood, I have recommended repeat aspiration of the right knee under C-arm guidance. I have discussed about this with the patient, family and Dr. Best. Patient has moderate right knee effusion/swelling with edema of the r ight lower extremity. Her white count is within the normal range but ESR and CRP are markedly elevated. The patient also has pneumonia for which she is on antibiotics. She is also spiking a temperature intermittently. Following a detailed discussion, I have recommended a repeat aspiration of the right knee under C-arm guidance to make sure the tip of the needle is intra-articular. They wished to proceed with this. Please see the procedure note below for details. I would recommended continuation of conservative management including rest, activity modification, elevation, icing, regular NSAIDs and simple pain medication as needed. I have told her family that if the repeat samples show any concerning findings, I will contact them with regards to further management. I would also recommend repeat CBC, ESR and CRP, rheumatoid factor and other appropriate screening for any inflammatory arthritis. All the questions were answered and they verbalized understanding. Continue medical management as per Dr. Best. Procedure note: Aspiration right knee joint under fluoroscopic control: An informed written consent was obtained after explaining the procedure, risks, benefits and alte rnatives in detail. Patient was taken to the procedure room and placed supine on the table. All the bony prominences were appropriately padded. The right leg was elevated on a bone form to make it easier to obtain lateral view C-arm x-rays. The skin was prepped in a sterile fashion with multiple chlorhexidine prep sticks and draped in a sterile fashion with sterile towels. Local anesthesia was obtained with 5 cc of 1% lidocaine. I then placed an 18-gauge spinal needle into the the right knee through an anterolateral approach under C- arm guidance under aseptic precautions. Again I could only aspirate 1-2 cc of bloody fluid. No evidence of obvious infected material noted on naked eye examination of the aspirate. At this stage, to confirm appropriate needle placement, I have injected 5 cc of Isovue 200 contrast into the knee joint. This confirmed that the needle tip was intra-articular. The contrast distribution suggested marked synovitis or intra-articular mass as opposed to an effusion. The samples so obtained were sent for Gram stain and culture and sensitivity as well as cytology. Sterile dressing was applied. Patient tolerated the procedure well and there were no immediate complications.
[2018-11-25 06:44] LABS: Basophils % 0.3 % (0.1-2.0); Eosinophils # 0.1 K/mm3 (0.0-0.4); Eosinophils % 1.8 % (0.1-12.0); Hemoglobin 8.6 g/dL (12.2-16.2); Lymphocytes # 1.3 K/mm3 (0.7-4.5); Lymphocytes % 24.4 % (10-50); Mean Corpuscular HGB Conc 31.1 g/dL (31.8-35.4); Mean Corpuscular Hemoglobin 27.4 pg (27.0-31.2); Mean Corpuscular Volume 88.1 fl (81-99); Mean Platelet Volume 7.2 fl (7.4-10.4); Monocytes # 0.4 K/mm3 (0.1-1.0); Monocytes % 7.9 % (1.7-9.3); Neutrophils # 3.6 K/mm3 (1.8-7.8); Neutrophils % 65.6 % (37.0-80.0); Platelet Count 403 K/mm3 (142-424); Red Blood Count 3.14 M/mm3 (4.20-5.40); Red Cell Distribution Width 18.1 % (11.5-17.5); White Blood Count 5.4 K/mm3 (4.8-10.8)
[2018-11-25 06:52] LABS: Hematocrit 27.7 % (37.0-47.0)
--- NOTE | 2018-11-25 08:49 | Progress Note ---
Internal Medicine - PN: Subj Interval history: Dr. Slater's report noted from yesterday. She has no new complaints this morning. She still has pain in her legs. Denies cough or shortness of breath. No abdominal pain. Noted with 2 small bowel movements documented yesterday. Diarrhea panel was ordered by the nursing staff and was negative. Exam Vital signs and Labs for Last 24 Hours: Temp Pulse Resp BP Pulse Ox 98.4 F 101 H 17 103/60 L 93 L 11/25/18 07:35 11/25/18 07:35 11/25/18 07:35 11/25/18 07:35 11/25/18 07:35 Laboratory Results - last 24 hr 11/24/18 20:15: Stl Aeromonas (PCR) Not detected, Stl C. cayetanensis PCR Not detected, Stool Rotavirus (PCR) Not detected, Stl Adenov F 40/41 PCR Not detected, Stool Astrovirus (PCR) Not detected, Stool Campylobacter PCR Not detected, Stl C.difficile Tox PCR Not detected, Stool Cryptosporidium PCR Not detected, Stl E.coli Shiga Tox PCR Not detected, Stool E coli O157 PCR Not detected, Stl Enterotoxigenic E PCR Not detected, Stool EPEC (PCR) Not detected, Stool EAEC (PCR) Not detected, Stl E. histolytica PCR Not detected, Stool Giardia Lamblia PCR Not detected, Stool Salmonella PCR Not detected, Stool Sapovirus (PCR) Not detected, Stl P. shigelloides PCR Not detected, Stl Shigella/EIEC PCR Not detected, St Y.enterocolitica PCR Not detected, Stool Vibrio (PCR) Not detected, Stl Vibrio cholerae PCR Not detected, Stl Norovirus GI/GII PCR Not detected 11/25/18 06:30: ESR > 120 H 11/25/18 06:30: C-Reactive Protein 16.3 H 11/25/18 06:30: WBC 5.4, RBC 3.14 L, Hgb 8.6 L, Hct 27.7 L, MCV 88.1, MCH 27.4, MCHC 31.1 L, RDW 18.1 H, Plt Count 403, MPV 7.2 L, Neut % (Auto) 65.6, Lymph % (Auto) 24.4, [place] % (Auto) 7.9, Eos % (Auto) 1.8, Baso % (Auto) 0.3, Neut # (Auto) 3.6, Lymph # (Auto) 1.3, [place] # (Auto) 0.4, Eos # (Auto) 0.1, Baso # (Auto) 0.0 I & O for Last 24 hours: Intake & Output 11/22/18 11/23/18 11/24/18 11/25/18 11:59 11:59 11:59 11:59 Intake Total 0 / 0 860 / 860 2309 / 2309 2668 / 2668 Output Total 0 / 0 Balance 0 / 0 860 / 860 2309 / 2309 2668 / 2668 Weight 181 lb 6 oz 181 lb 6 oz 194 lb 8 oz Microbiology Reports for the Last 24 Hours: Microbiology 11/23/18 17:00 Aspirate - Aspirate Gram Stain - Final 11/23/18 17:00 Aspirate - Aspirate Body Fluid Culture - Preliminary Gram Positive Cocci 11/24/18 15:30 Aspirate - Aspirate Gram Stain - Final 11/24/18 15:30 Aspirate - Aspirate Body Fluid Culture - Preliminary 11/22/18 20:33 Blood Blood Culture - Preliminary NO GROWTH AFTER 48 HOURS 11/22/18 20:33 Blood Blood Culture - Preliminary NO GROWTH AFTER 48 HOURS Narrative: She is awake and alert. She is oriented to name and place only. Color is adequate. Lungs are clear anteriorly. Heart is regular. Abdomen soft and nondistended with no masses or tenderness. Lower extremities show 2+ edema of the right leg and 1+ edema of the left leg. Right leg is tender to palpation. Dressing on right knee clean and dry. Assessment and Plan (1) HCAP (healthcare-associated pneumonia) Current visit: Yes Status: Acute Category: Medical Code(s): J18.9 - Pneumonia, unspecified organism (2) Iron deficiency anemia Current visit: Yes Status: Acute Category: Medical Code(s): D50.9 - Iron deficiency anemia, unspecified (3) Elevated d-dimer Current visit: Yes Status: Acute Category: Medical Code(s): R79.89 - Other specified abnormal findings of blood chemistry (4) History of CVA (cerebrovascular accident) Current visit: Yes Status: Chronic Category: Medical Code(s): Z86.73 - Personal history of transient ischemic attack (TIA), and cerebral infarction without residual deficits (5) Type 2 diabetes mellitus Current visit: Yes Status: Chronic Category: Medical Code(s): E11.9 - Type 2 diabetes mellitus without complications (6) Hyperlipidemia Current visit: Yes Status: Chronic Category: Medical Code(s): E78.5 - Hyperlipidemia, unspecified (7) History of encephalopathy Current visit: Yes Status: Chronic Category: Medical Code(s): Z86.69 - Personal history of other diseases of the nervous system and sense organs (8) Spinal stenosis Current visit: Yes Status: Chronic Category: Medical Code(s): M48.00 - Spinal stenosis, site unspecified (9) Factor 5 Leiden mutation, heterozygous Current visit: Yes Status: Chronic Category: Medical Code(s): D68.51 - Activated protein C resistance (10) Obstructive sleep apnea Current visit: Yes Status: Chronic Category: Medical Code(s): G47.33 - Obstructive sleep apnea (adult) (pediatric) (11) Osteoporosis Current visit: Yes Status: Chronic Category: Medical Code(s): M81.0 - Age- related osteoporosis without current pathological fracture (12) Dementia Current visit: Yes Status: Chronic Category: Medical Code(s): F03.90 - Unspecified dementia without behavioral disturbance (13) Hypothyroidism Current visit: Yes Status: Acute Category: Medical Code(s): E03.9 - Hypothyroidism, unspecified - Assessment and plan all Dx Assessment and Plan for all problems:: Awaiting results of knee aspiration and further recommendations from Dr. Slater. Her hemoglobin has dropped slightly. We will continue to follow serially. She will be started on Aricept for her dementia. Due to potential interaction with Zithromax, this will be discontinued. We will continue Rocephin pending cultures.
--- NOTE | 2018-11-25 09:42 | Progress Note ---
Internal Medicine - PN: Subj *Date: 11/25/18 *Time: 09:42 Exam Vital signs and Labs for Last 24 Hours: Temp Pulse Resp BP Pulse Ox 98.4 F 101 H 17 103/60 L 93 L 11/25/18 07:35 11/25/18 07:35 11/25/18 07:35 11/25/18 07:35 11/25/18 07:35 Laboratory Results - last 24 hr 11/24/18 20:15: Stl Aeromonas (PCR) Not detected, Stl C. cayetanensis PCR Not detected, Stool Rotavirus (PCR) Not detected, Stl Adenov F 40/41 PCR Not detected, Stool Astrovirus (PCR) Not detected, Stool Campylobacter PCR Not detected, Stl C.difficile Tox PCR Not detected, Stool Cryptosporidium PCR Not detected, Stl E.coli Shiga Tox PCR Not detected, Stool E coli O157 PCR Not detected, Stl Enterotoxigenic E PCR Not detected, Stool EPEC (PCR) Not detected, Stool EAEC (PCR) Not detected, Stl E. histolytica PCR Not detected, Stool Giardia Lamblia PCR Not detected, Stool Salmonella PCR Not detected, Stool Sapovirus (PCR) Not detected, Stl P. shigelloides PCR Not detected, Stl Shigella/EIEC PCR Not detected, St Y.enterocolitica PCR Not detected, Stool Vibrio (PCR) Not detected, Stl Vibrio cholerae PCR Not detected, Stl Norovirus GI/GII PCR Not detected 11/25/18 06:30: ESR > 120 H 11/25/18 06:30: C-Reactive Protein 16.3 H 11/25/18 06:30: WBC 5.4, RBC 3.14 L, Hgb 8.6 L, Hct 27.7 L, MCV 88.1, MCH 27.4, MCHC 31.1 L, RDW 18.1 H, Plt Count 403, MPV 7.2 L, Neut % (Auto) 65.6, Lymph % (Auto) 24.4, [place] % (Auto) 7.9, Eos % (Auto) 1.8, Baso % (Auto) 0.3, Neut # (Auto) 3.6, Lymph # (Auto) 1.3, [place] # (Auto) 0.4, Eos # (Auto) 0.1, Baso # (Auto) 0.0 I & O for Last 24 hours: Intake & Output 11/22/18 11/23/18 11/24/18 11/25/18 23:59 23:59 23:59 23:59 Intake Total 740 / 740 2189 / 2189 480 / 480 2428 / 2428 Output Total 0 / 0 Balance 740 / 740 2189 / 2189 480 / 480 2428 / 2428 Weight 82.27 kg 82.27 kg 82.27 kg 88.224 kg Microbiology Reports for the Last 24 Hours: Microbiology 11/23/18 17:00 Aspirate - Aspirate Gram Stain - Final 11/23/18 17:00 Aspirate - Aspirate Body Fluid Culture - Preliminary Gram Positive Cocci 11/24/18 15:30 Aspirate - Aspirate Gram Stain - Final 11/24/18 15:30 Aspirate - Aspirate Body Fluid Culture - Preliminary 11/22/18 20:33 Blood Blood Culture - Preliminary NO GROWTH AFTER 48 HOURS 11/22/18 20:33 Blood Blood Culture - Preliminary NO GROWTH AFTER 48 HOURS Assessment and Plan (1) HCAP (healthcare-associated pneumonia) Current visit: Yes Status: Acute Category: Medical Code(s): J18.9 - Pneumonia, unspecified organism (2) Iron deficiency anemia Current visit: Yes Status: Acute Category: Medical Code(s): D50.9 - Iron deficiency anemia, unspecified (3) Elevated d-dimer Current visit: Yes Status: Acute Category: Medical Code(s): R79.89 - Other specified abnormal findings of blood chemistry (4) History of CVA (cerebrovascular accident) Current visit: Yes Status: Chronic Category: Medical Code(s): Z86.73 - Personal history of transient ischemic attack (TIA), and cerebral infarction without residual deficits (5) Type 2 diabetes mellitus Current visit: Yes Status: Chronic Category: Medical Code(s): E11.9 - Type 2 diabetes mellitus without complications (6) Hyperlipidemia Current visit: Yes Status: Chronic Category: Medical Code(s): E78.5 - Hyperlipidemia, unspecified (7) History of encephalopathy Current visit: Yes Status: Chronic Category: Medical Code(s): Z86.69 - Personal history of other diseases of the nervous system and sense organs (8) Spinal stenosis Current visit: Yes Status: Chronic Category: Medical Code(s): M48.00 - Spinal stenosis, site unspecified (9) Factor 5 Leiden mutation, heterozygous Current visit: Yes Status: Chronic Category: Medical Code(s): D68.51 - Activated protein C resistance (10) Obstructive sleep apnea Current visit: Yes Status: Chronic Category: Medical Code(s): G47.33 - Obstructive sleep apnea (adult) (pediatric) (11) Osteoporosis Current visit: Yes Status: Chronic Category: Medical Code(s): M81.0 - Age- related osteoporosis without current pathological fracture (12) Dementia Current visit: Yes Status: Chronic Category: Medical Code(s): F03.90 - Unspecified dementia without behavioral disturbance (13) Hypothyroidism Current visit: Yes Status: Acute Category: Medical Code(s): E03.9 - Hypothyroidism, unspecified The patient's infection will respond to the chosen ABx?: Yes Is the patient receiving the right drug, dose, and route?: Yes Could a more targeted ABx be ordered?: No (WBC NORMAL, GRAM POSITIVE COCCI, ON ROCEPHIN)
--- NOTE | 2018-11-25 16:05 | Progress Note ---
Subjective Date: 11/25/18 Time: 15:30 Principal diagnosis: Septic arthritis, right knee Interval history: Patient says she is doing well and reports no new complaints today. She appears fairly comfortable and cheerful. Today it is her birthday and she has a lot of family members visiting and she is celebrating her birthday with them. She is still reports pain in her right knee and right leg. She is eating and drinking well. No history of any nausea, vomiting or abdominal pain. No history of any cough, shortness of breath or chest pain. PN: Obj Ex Vital signs: Temp Pulse Resp BP Pulse Ox 98.8 F 80 17 105/65 L 94 L 11/25/18 14:38 11/25/18 14:38 11/25/18 14:38 11/25/18 14:38 11/25/18 14:38 Narrative: Laboratory Results - last 24 hr 11/24/18 20:15: Stl Aeromonas (PCR) Not detected, Stl C. cayetanensis PCR Not detected, Stool Rotavirus (PCR) Not detected, Stl Adenov F 40/41 PCR Not detected, Stool Astrovirus (PCR) Not detected, Stool Campylobacter PCR Not detected, Stl C.difficile Tox PCR Not detected, Stool Cryptosporidium PCR Not detected, Stl E.coli Shiga Tox PCR Not detected, Stool E coli O157 PCR Not detected, Stl Enterotoxigenic E PCR Not detected, Stool EPEC (PCR) Not detected, Stool EAEC (PCR) Not detected, Stl E. histolytica PCR Not detected, Stool Giardia Lamblia PCR Not detected, Stool Salmonella PCR Not detected, Stool Sapovirus (PCR) Not detected, Stl P. shigelloides PCR Not detected, Stl Shigella/EIEC PCR Not detected, St Y.enterocolitica PCR Not detected, Stool Vibrio (PCR) Not detected, Stl Vibrio cholerae PCR Not detected, Stl Norovirus GI/GII PCR Not detected 11/25/18 06:30: ESR > 120 H 11/25/18 06:30: C-Reactive Protein 16.3 H 11/25/18 06:30: WBC 5.4, RBC 3.14 L, Hgb 8.6 L, Hct 27.7 L, MCV 88.1, MCH 27.4, MCHC 31.1 L, RDW 18.1 H, Plt Count 403, MPV 7.2 L, Neut % (Auto) 65.6, Lymph % (Auto) 24.4, [place] % (Auto) 7.9, Eos % (Auto) 1.8, Baso % (Auto) 0.3, Neut # (Auto) 3.6, Lymph # (Auto) 1.3, [place] # (Auto) 0.4, Eos # (Auto) 0.1, Baso # (Auto) 0.0 Microbiology 11/23/18 17:00 Aspirate - Aspirate Gram Stain - Final 11/23/18 17:00 Aspirate - Aspirate Body Fluid Culture - Preliminary Gram Positive Cocci 11/24/18 15:30 Aspirate - Aspirate Gram Stain - Final 11/24/18 15:30 Aspirate - Aspirate Body Fluid Culture - Preliminary 11/22/18 20:33 Blood Blood Culture - Preliminary NO GROWTH AFTER 48 HOURS 11/22/18 20:33 Blood Blood Culture - Preliminary NO GROWTH AFTER 48 HOURS Exam: General appearance: alert, active, awake; oriented to name and place only Cardiovascular: regular rate & rhythm Respiratory: No respiratory distress noted, speaks in full sentences ABD: soft and non tender On examination of her right knee, multiple puncture michael from arthrocentesis noted otherwise skin is intact. The knee warm to touch and is diffusely tender. There is tenderness over all 3 compartments. There is 2+ knee effusion. Knee range of movements is limited with pain and stiffness and passively she only has flexion from 10-30 degrees. All the movements are associated with pain. She is nontender over the right hip joint and right thigh. On examination of her right leg, the skin is intact. There is diffuse 2+ pitting edema and tenderness over the leg, foot and ankle. No palpable hematoma or abscess noted. She has limited range of foot and ankle movements. Homans sign is negative. Dorsalis pedis and posterior tibial pulses are not palpable because of edema. Capillary refill is sluggish. Sensation is intact to light touch throughout. Progress Note: A&P (1) HCAP (healthcare-associated pneumonia) Status: Acute Current Visit: Yes (2) Iron deficiency anemia Status: Acute Current Visit: Yes (3) Elevated d-dimer Status: Acute Current Visit: Yes (4) History of CVA (cerebrovascular accident) Status: Chronic Current Visit: Yes (5) Type 2 diabetes mellitus Status: Chronic Current Visit: Yes (6) Hyperlipidemia Status: Chronic Current Visit: Yes (7) History of encephalopathy Status: Chronic Current Visit: Yes (8) Spinal stenosis Status: Chronic Current Visit: Yes (9) Factor 5 Leiden mutation, heterozygous Status: Chronic Current Visit: Yes (10) Obstructive sleep apnea Status: Chronic Current Visit: Yes (11) Osteoporosis Status: Chronic Current Visit: Yes (12) Dementia Status: Chronic Current Visit: Yes (13) Hypothyroidism Status: Acute Current Visit: Yes (14) Septic arthritis of knee, right Status: Acute Current Visit: Yes Assessment and Plan for All Diagnoses:: I have again reviewed the clinical, laboratory findings and progress with the patient and her family. Multiple family members are with her in the room. The knee aspirate from 11/23/2018 is growing gram-positive cocci. The organism is not fully identified and antibiotic sensitivities are not yet known. This does indicate that she has septic arthritis in her right knee. She must have had this for a while given the history and the marked destruction of the joint surfaces on x-ray. I have discussed this diagnosis, natural history and management options in detail including both nonsurgical and surgical. The nonsurgical management would involve prolonged IV and or oral antibiotics as appropriate for 6 weeks or so. During this period regular monitoring of the progress involves frequent assessment of clinical, radiological and inflammatory markers. The surgical management would involve arthroscopic/open debridement and washout of the right knee. However, given her age, general health, sandra rbidities, nutritional status there is high risk of surgical morbidity and mortality. The possible complications with surgery include but are not limited to infection, injury to nerves and blood vessels, bleeding, injury to the ligaments and tendons, knee stiffness/arthrofibrosis, incomplete pain relief, incomplete functional recovery, DVT, PE, CRPS, complications related to anesthesia including heart attack, stroke and even . I have discussed how there is a small but real possibility of loss of use of the limb, loss of the limb (amputation) or loss of life itself. We discussed how any of these events can be devastating. I have also discussed about the likely need for multiple surgical procedures in future. Needle arthrocentesis is unlikely to make much of a difference as the previous 2 aspirations did not show significant effusion. The knee arthrogram did show that there is a lot of synovitis/inflammatory tissue in the knee joint. Surgical debridement would reduce the burden of this infected tissue. The joint surfaces are already destroyed and the goal of surgery is to reduce the burden of infected tissue as opposed to preserving the joint surfaces. I told the patient/family that there were no guarantees with surgery; she could be no better or even worse. She is a relatively high surgical risk patient given her age, comorbidities, nutritional status and chronic edema of the leg. We also discussed the postoperative recovery and rehabilitation. I believe the patient/family to be well informed with regard to the proposed surgery. I told her that it could take a few months for full recovery of the knee after surgery. All the questions were answered by me and the patient/family verbalized a good understanding. Her daughter, sisters said that they will discuss among themselves as to which way to proceed and let us know. I have also discussed about this with Dr. Best over telephone and he agrees with the plan. I have recommended starting her on IV vancomycin, dosed by pharmacy. A second antibiotic to be added later depending on organism identified and antibiotic sensitivities. Patient is also on anticoagulation and Dr. Best has recommended waiting for 3 days for surgical intervention if the family decides the surgical option. In the meantime, I would recommend continuation of other conservative measures including rest, activity modificat ion, elevation, NSAIDs and simple pain medication as needed. I would also recommend monitoring her progress with repeat CBC, ESR and CRP. All the questions were answered and they verbalized understanding. Continue medical management as per Dr. Best.
[2018-11-26 06:39] LABS: Basophils % 0.2 % (0.1-2.0); Eosinophils # 0.1 K/mm3 (0.0-0.4); Eosinophils % 2.4 % (0.1-12.0); Hematocrit 27.4 % (37.0-47.0); Hemoglobin 8.5 g/dL (12.2-16.2); Lymphocytes # 1.6 K/mm3 (0.7-4.5); Lymphocytes % 27.9 % (10-50); Mean Corpuscular HGB Conc 31.2 g/dL (31.8-35.4); Mean Corpuscular Hemoglobin 27.2 pg (27.0-31.2); Mean Corpuscular Volume 87.5 fl (81-99); Mean Platelet Volume 6.9 fl (7.4-10.4); Monocytes # 0.5 K/mm3 (0.1-1.0); Monocytes % 8.7 % (1.7-9.3); Neutrophils # 3.5 K/mm3 (1.8-7.8); Neutrophils % 60.8 % (37.0-80.0); Platelet Count 412 K/mm3 (142-424); Red Blood Count 3.13 M/mm3 (4.20-5.40); Red Cell Distribution Width 18.3 % (11.5-17.5); White Blood Count 5.8 K/mm3 (4.8-10.8)
[2018-11-26 06:44] LABS: Anion Gap 7.7 mEq/L (5-15); Calcium 8.5 mg/dL (8.5-10.1); Potassium 3.7 mmoL/L (3.5-5.1)
--- NOTE | 2018-11-26 08:10 | Progress Note ---
<Nanette Hanna - Last Filed: 11/26/18 08:07> Internal Medicine - PN: Subj *Date: 11/26/18 *Time: 08:07 Interval history: States patient states she is doing well. She denies chest pain and short of breath. Daughter is at bedside and assisting her with breakfast although patient is feeding herself. She states she eats okay most meals. Bowels have moved. Patient states both legs hurt as well as her back. Exam Vital signs and Labs for Last 24 Hours: Temp Pulse Resp BP Pulse Ox 98.8 F 99 H 20 147/76 H 91 L 11/26/18 08:00 11/26/18 08:00 11/26/18 08:00 11/26/18 08:00 11/26/18 08:00 Laboratory Results - last 24 hr 11/26/18 06:21: WBC 5.8, RBC 3.13 L, Hgb 8.5 L, Hct 27.4 L, MCV 87.5, MCH 27.2, MCHC 31.2 L, RDW 18.3 H, Plt Count 412, MPV 6.9 L, Neut % (Auto) 60.8, Lymph % (Auto) 27.9, [place] % (Auto) 8.7, Eos % (Auto) 2.4, Baso % (Auto) 0.2, Neut # (Auto) 3.5, Lymph # (Auto) 1.6, [place] # (Auto) 0.5, Eos # (Auto) 0.1, Baso # (Auto) 0.0 11/26/18 06:21: Sodium 136, Potassium 3.7, Chloride 102, Carbon Dioxide 30, Anion Gap 7.7, BUN 10 D, Creatinine 0.71, Estimated Creat Clear 66, Estimated GFR 80, Est GFR ( Amer) 96, Glucose 109 H, Calcium 8.5 I & O for Last 24 hours: Intake & Output 11/23/18 11/24/18 11/25/18 11/26/18 11:59 11:59 11:59 11:59 Intake Total 860 / 860 2309 / 2309 2668 / 2668 189 / 1895 Output Total 0 / 0 Balance 860 / 860 2309 / 2309 2668 / 2668 189 / 1894 Weight 181 lb 6 oz 181 lb 6 oz 194 lb 8 oz 198 lb 4 oz Microbiology Reports for the Last 24 Hours: Microbiology 11/24/18 15:30 Aspirate - Aspirate Gram Stain - Final 11/24/18 15:30 Aspirate - Aspirate Body Fluid Culture - Preliminary Gram Positive Cocci Gram Positive Cocci#2 11/23/18 17:00 Aspirate - Aspirate Gram Stain - Final 11/23/18 17:00 Aspirate - Aspirate Body Fluid Culture - Preliminary Staphylococcus aureus Gram Positive Cocci - Constitutional no acute distress Comments: Sitting up in the bed and feeding herself breakfast. Appears comfortable and smiles with conversation. - *Routine Respiratory Exam Comments: Left basilar crackles - *Routine Cardiovascular Exam Present: RRR, murmur - *Routine Abdominal Exam Present: soft, normoactive bowel sounds. Absent: tenderness - *Routine Extremities Exam Present: edema (Bilateral legs) - *Routine Neurological Exam Present: alert, oriented X3 Assessment and Plan (1) HCAP (healthcare-associated pneumonia) Current visit: Yes Status: Acute Category: Medical Code(s): J18.9 - Pneumonia, unspecified organism (2) Iron deficiency anemia Current visit: Yes Status: Acute Category: Medical Code(s): D50.9 - Iron deficiency anemia, unspecified (3) Elevated d-dimer Current visit: Yes Status: Acute Category: Medical Code(s): R79.89 - Other specified abnormal findings of blood chemistry (4) History of CVA (cerebrovascular accident) Current visit: Yes Status: Chronic Category: Medical Code(s): Z86.73 - Personal history of transient ischemic attack (TIA), and cerebral infarction without residual deficits (5) Type 2 diabetes mellitus Current visit: Yes Status: Chronic Category: Medical Code(s): E11.9 - Type 2 diabetes mellitus without complications (6) Hyperlipidemia Current visit: Yes Status: Chronic Category: Medical Code(s): E78.5 - Hyperlipidemia, unspecified (7) History of encephalopathy Current visit: Yes Status: Chronic Category: Medical Code(s): Z86.69 - Personal history of other diseases of the nervous system and sense organs (8) Spinal stenosis Current visit: Yes Status: Chronic Category: Medical Code(s): M48.00 - Spinal stenosis, site unspecified (9) Factor 5 Leiden mutation, heterozygous Current visit: Yes Status: Chronic Category: Medical Code(s): D68.51 - Activated protein C resistance (10) Obstructive sleep apnea Current visit: Yes Status: Chronic Category: Medical Code(s): G47.33 - Obstructive sleep apnea (adult) (pediatric) (11) Osteoporosis Current visit: Yes Status: Chronic Category: Medical Code(s): M81.0 - Age- related osteoporosis without current pathological fracture (12) Dementia Current visit: Yes Status: Chronic Category: Medical Code(s): F03.90 - Unspecified dementia without behavioral disturbance (13) Hypothyroidism Current visit: Yes Status: Acute Category: Medical Code(s): E03.9 - Hypothyroidism, unspecified (14) Septic arthritis of knee, right Current visit: Yes Status: Acute Category: Medical Code(s): M00.9 - Pyogenic arthritis, unspecified - Assessment and plan all Dx Assessment and Plan for all problems:: Patient has been seen by Dr. Slater. Patient and family have agreed on surgery this week for I&D of right knee. We will continue current treatment for pneumonia. Aspirate from right knee showing MRSA. Patient was started on vancomycin. <Mustapha Best - Last Filed: 11/26/18 08:25> Exam Vital signs and Labs for Last 24 Hours: Temp Pulse Resp BP Pulse Ox 98.8 F 99 H 20 147/76 H 91 L 11/26/18 08:00 11/26/18 08:00 11/26/18 08:00 11/26/18 08:00 11/26/18 08:00 Laboratory Results - last 24 hr 11/26/18 06:21: WBC 5.8, RBC 3.13 L, Hgb 8.5 L, Hct 27.4 L, MCV 87.5, MCH 27.2, MCHC 31.2 L, RDW 18.3 H, Plt Count 412, MPV 6.9 L, Neut % (Auto) 60.8, Lymph % (Auto) 27.9, [place] % (Auto) 8.7, Eos % (Auto) 2.4, Baso % (Auto) 0.2, Neut # (Auto) 3.5, Lymph # (Auto) 1.6, [place] # (Auto) 0.5, Eos # (Auto) 0.1, Baso # (Auto) 0.0 11/26/18 06:21: Sodium 136, Potassium 3.7, Chloride 102, Carbon Dioxide 30, Anion Gap 7.7, BUN 10 D, Creatinine 0.71, Estimated Creat Clear 66, Estimated GFR 80, Est GFR ( Amer) 96, Glucose 109 H, Calcium 8.5 I & O for Last 24 hours: Intake & Output 11/23/18 11/24/18 11/25/18 11/26/18 11:59 11:59 11:59 11:59 Intake Total 860 / 860 2309 / 2309 2668 / 2668 1895 / 1895 Output Total 0 / 0 Balance 860 / 860 2309 / 2309 2668 / 2668 1894 / 1894 Weight 181 lb 6 oz 181 lb 6 oz 194 lb 8 oz 198 lb 4 oz Microbiology Reports for the Last 24 Hours: Microbiology 11/24/18 15:30 Aspirate - Aspirate Gram Stain - Final 11/24/18 15:30 Aspirate - Aspirate Body Fluid Culture - Preliminary Gram Positive Cocci Gram Positive Cocci#2 11/23/18 17:00 Aspirate - Aspirate Gram Stain - Final 11/23/18 17:00 Aspirate - Aspirate Body Fluid Culture - Preliminary Staphylococcus aureus Gram Positive Cocci Assessment and Plan (1) HCAP (healthcare-associated pneumonia) Current visit: Yes Status: Acute Category: Medical Code(s): J18.9 - Pneumonia, unspecified organism (2) Iron deficiency anemia Current visit: Yes Status: Acute Category: Medical Code(s): D50.9 - Iron deficiency anemia, unspecified (3) Elevated d-dimer Current visit: Yes Status: Acute Category: Medical Code(s): R79.89 - Other specified abnormal findings of blood chemistry (4) History of CVA (cerebrovascular accident) Current visit: Yes Status: Chronic Category: Medical Code(s): Z86.73 - Personal history of transient ischemic attack (TIA), and cerebral infarction without residual deficits (5) Type 2 diabetes mellitus Current visit: Yes Status: Chronic Category: Medical Code(s): E11.9 - Type 2 diabetes mellitus without complications (6) Hyperlipidemia Current visit: Yes Status: Chronic Category: Medical Code(s): E78.5 - Hyperlipidemia, unspecified (7) History of encephalopathy Current visit: Yes Status: Chronic Category: Medical Code(s): Z86.69 - Personal history of other diseases of the nervous system and sense organs (8) Spinal stenosis Current visit: Yes Status: Chronic Category: Medical Code(s): M48.00 - Spinal stenosis, site unspecified (9) Factor 5 Leiden mutation, heterozygous Current visit: Yes Status: Chronic Category: Medical Code(s): D68.51 - Activated protein C resistance (10) Obstructive sleep apnea Current visit: Yes Status: Chronic Category: Medical Code(s): G47.33 - Obstructive sleep apnea (adult) (pediatric) (11) Osteoporosis Current visit: Yes Status: Chronic Category: Medical Code(s): M81.0 - Age- related osteoporosis without current pathological fracture (12) Dementia Current visit: Yes Status: Chronic Category: Medical Code(s): F03.90 - Unspecified dementia without behavioral disturbance (13) Hypothyroidism Current visit: Yes Status: Acute Category: Medical Code(s): E03.9 - Hypothyroidism, unspecified (14) Septic arthritis of knee, right Current visit: Yes Status: Acute Category: Medical Code(s): M00.9 - Pyogenic arthritis, unspecified - Assessment and plan all Dx Assessment and Plan for all problems:: Patient seen and examined. Concur with above. I have discussed with Dr. Slater and he would like to add Rifampin to her regimen. He is planning for surgery on .
--- NOTE | 2018-11-26 08:50 | Progress Note ---
Subjective Date: 11/26/18 Time: 07:45 Principal diagnosis: Septic arthritis, right knee Interval history: Patient says she is doing well and reports no new complaints. She says the right knee/leg are same as before. Her daughter is at the bedside assisting her with eating the breakfast. She says she is eating well. PN: Obj Ex Vital signs: Temp Pulse Resp BP Pulse Ox 98.8 F 99 H 16 147/76 H 94 L 11/26/18 08:00 11/26/18 08:00 11/26/18 08:00 11/26/18 08:00 11/26/18 08:00 Narrative: Laboratory Results - last 24 hr 11/26/18 06:21: WBC 5.8, RBC 3.13 L, Hgb 8.5 L, Hct 27.4 L, MCV 87.5, MCH 27.2, MCHC 31.2 L, RDW 18.3 H, Plt Count 412, MPV 6.9 L, Neut % (Auto) 60.8, Lymph % (Auto) 27.9, [place] % (Auto) 8.7, Eos % (Auto) 2.4, Baso % (Auto) 0.2, Neut # (Auto) 3.5, Lymph # (Auto) 1.6, [place] # (Auto) 0.5, Eos # (Auto) 0.1, Baso # (Auto) 0.0 11/26/18 06:21: Sodium 136, Potassium 3.7, Chloride 102, Carbon Dioxide 30, Anion Gap 7.7, BUN 10 D, Creatinine 0.71, Estimated Creat Clear 66, Estimated GFR 80, Est GFR ( Amer) 96, Glucose 109 H, Calcium 8.5 Microbiology 11/24/18 15:30 Aspirate - Aspirate Gram Stain - Final 11/24/18 15:30 Aspirate - Aspirate Body Fluid Culture - Preliminary Gram Positive Cocci Gram Positive Cocci#2 11/23/18 17:00 Aspirate - Aspirate Gram Stain - Final 11/23/18 17:00 Aspirate - Aspirate Body Fluid Culture - Preliminary Staphylococcus aureus Gram Positive Cocci Exam: Sitting up in the bed and eating breakfast. She appears comfortable and answers simple questions. No acute distress Cardiovascular: regular rate & rhythm Respiratory: No respiratory distress noted, speaks in full sentences ABD: soft and non tender On examination of her right knee, she has multiple puncture micheal from the arthrocentesis; otherwise the skin is intact. There is 2+ knee effusion. The knee joint is warm to touch and diffusely tender. There is tenderness over all 3 compartments. Knee range of movements are limited limited with pain and stiffness. Passive movements are associated with pain. Within the possible range of movements, knee joint appears ligamentously stable. She is nontender over the right hip joint and right thigh. On examination of her right leg, the skin is intact. There is diffuse 2+ edema over the knee, leg and foot and ankle. There is tenderness over the leg, foot and ankle. No palpable hematoma or abscess is noted. She has limited range of foot and ankle movements. Homans sign is negative. Dorsalis pedis and posterior tibial pulses are not palpable because of edema. Capillary refill is sluggish. Sensation is intact to light touch throughout. Progress Note: A&P (1) HCAP (healthcare-associated pneumonia) Status: Acute Current Visit: Yes (2) Iron deficiency anemia Status: Acute Current Visit: Yes (3) Elevated d-dimer Status: Acute Current Visit: Yes (4) History of CVA (cerebrovascular accident) Status: Chronic Current Visit: Yes (5) Type 2 diabetes mellitus Status: Chronic Current Visit: Yes (6) Hyperlipidemia Status: Chronic Current Visit: Yes (7) History of encephalopathy Status: Chronic Current Visit: Yes (8) Spinal stenosis Status: Chronic Current Visit: Yes (9) Factor 5 Leiden mutation, heterozygous Status: Chronic Current Visit: Yes (10) Obstructive sleep apnea Status: Chronic Current Visit: Yes (11) Osteoporosis Status: Chronic Current Visit: Yes (12) Dementia Status: Chronic Current Visit: Yes (13) Hypothyroidism Status: Acute Current Visit: Yes (14) Septic arthritis of knee, right Status: Acute Current Visit: Yes Assessment and Plan for All Diagnoses:: Reviewed the microbiology results which have confirmed MRSA infection. Discussed with Dr. Best regarding adding a second antibiotic. Family has decided to proceed with surgical intervention in the form of arthroscopic/open debridement and washout. As patient is on Xarelto which is being held, Dr. Best recommended waiting for couple more days for surgery. Therefore, I am planning for surgical intervention on Monday. In the meantime, continue IV/oral antibiotics and rest of the nonsurgical management. I have discussed about the procedure, risks and benefits and alternatives with the patient and her daughter. All the questions were answered and they verbalized a good understanding. Continue medical management as per Dr. Best.
--- NOTE | 2018-11-26 10:26 | Pharmacy Consult Notes ---
- Pharmacy Consult Date: 11/26/18 Time: 10:24 Referring provider: DR. KERN Reason for Consult:: VANCOMYCIN DOSING Allergies and ADEs:: Allergies Allergy/AdvReac Type Severity Reaction Status Date / Time No Known Allergies Allergy Verified 11/21/18 09:32 Home Medications:: Home Medications Medication Instructions Recorded Confirmed Type Acetaminophen [Tylenol] 650 mg PO Q4HP PRN 11/21/18 11/22/18 History Aspirin [Aspirin 81mg EC Tab] 81 mg PO DAILY 11/21/18 11/22/18 History Atorvastatin Calcium [Atorvastatin 10 mg PO HS 11/21/18 11/22/18 History 10mg Tab] Citalopram Hydrobromide [Celexa 20 mg PO DAILY 11/21/18 11/22/18 History 20mg Tablet] Cyanocobalamin (Vitamin B-12) 1,000 mcg PO DAILY 11/21/18 11/22/18 History [Vitamin B-12] Ferrous Sulfate [Ferrous Sulfate 325 mg PO DAILY 11/21/18 11/22/18 History 325mg Tablet] Hydrocodone/Acetaminophen [[place] 1 tab PO Q4H 11/21/18 11/23/18 History 10-325 Tablet] Magnesium Oxide [Magnesium] 400 mg PO DAILY 11/21/18 11/22/18 History Pantoprazole Sodium [Protonix 40mg 40 mg PO DAILY 11/21/18 11/22/18 History tablet] Pregabalin [Lyrica 100mg Cap] 100 mg PO TID 11/21/18 11/22/18 History Rivaroxaban [Xarelto 20mg Tablet] 20 mg PO HS 11/21/18 11/22/18 History fentaNYL [Duragesic] 50 mcg TD Q72H 11/21/18 11/23/18 History Height: 1.75 m Weight: 89.925 kg Laboratory Results:: Laboratory Results - last 24 hr 11/26/18 06:21: WBC 5.8, RBC 3.13 L, Hgb 8.5 L, Hct 27.4 L, MCV 87.5, MCH 27.2, MCHC 31.2 L, RDW 18.3 H, Plt Count 412, MPV 6.9 L, Neut % (Auto) 60.8, Lymph % (Auto) 27.9, [place] % (Auto) 8.7, Eos % (Auto) 2.4, Baso % (Auto) 0.2, Neut # (Auto) 3.5, Lymph # (Auto) 1.6, [place] # (Auto) 0.5, Eos # (Auto) 0.1, Baso # (Auto) 0.0 11/26/18 06:21: Sodium 136, Potassium 3.7, Chloride 102, Carbon Dioxide 30, Anion Gap 7.7, BUN 10 D, Creatinine 0.71, Estimated Creat Clear 66, Estimated GFR 80, Est GFR ( Amer) 96, Glucose 109 H, Calcium 8.5 Medical History: Reports:: Cerebrovascular Accident, Deep Vein Thrombosis, Dementia, Depression, Diabetes Mellitus Type 2, Heart Murmur, Hyperlipidemia, MRSA, Transient Ischemic Attacks (TIA) Assessment and Plan (1) HCAP (healthcare-associated pneumonia) Current visit: Yes Status: Acute Category: Medical Code(s): J18.9 - Pneumonia, unspecified organism (2) Iron deficiency anemia Current visit: Yes Status: Acute Category: Medical Code(s): D50.9 - Iron deficiency anemia, unspecified (3) Elevated d-dimer Current visit: Yes Status: Acute Category: Medical Code(s): R79.89 - Other specified abnormal findings of blood chemistry (4) History of CVA (cerebrovascular accident) Current visit: Yes Status: Chronic Category: Medical Code(s): Z86.73 - Personal history of transient ischemic attack (TIA), and cerebral infarction without residual deficits (5) Type 2 diabetes mellitus Current visit: Yes Status: Chronic Category: Medical Code(s): E11.9 - Type 2 diabetes mellitus without complications (6) Hyperlipidemia Current visit: Yes Status: Chronic Category: Medical Code(s): E78.5 - Hyperlipidemia, unspecified (7) History of encephalopathy Current visit: Yes Status: Chronic Category: Medical Code(s): Z86.69 - Personal history of other diseases of the nervous system and sense organs (8) Spinal stenosis Current visit: Yes Status: Chronic Category: Medical Code(s): M48.00 - Spinal stenosis, site unspecified (9) Factor 5 Leiden mutation, heterozygous Current visit: Yes Status: Chronic Category: Medical Code(s): D68.51 - Activated protein C resistance (10) Obstructive sleep apnea Current visit: Yes Status: Chronic Category: Medical Code(s): G47.33 - Obstructive sleep apnea (adult) (pediatric) (11) Osteoporosis Current visit: Yes Status: Chronic Category: Medical Code(s): M81.0 - Age- related osteoporosis without current pathological fracture (12) Dementia Current visit: Yes Status: Chronic Category: Medical Code(s): F03.90 - Unspecified dementia without behavioral disturbance (13) Hypothyroidism Current visit: Yes Status: Acute Category: Medical Code(s): E03.9 - Hypothyroidism, unspecified (14) Septic arthritis of knee, right Current visit: Yes Status: Acute Category: Medical Code(s): M00.9 - Pyogenic arthritis, unspecified - Assessment and plan all Dx Assessment and Plan for all problems:: BASED ON PATIENT FACTORS, RECOMMEND INITIATING VANCOMYCIN AT 1,500MG IV EVERY 24 HOURS. PHARMACY WILL OBTAIN TROUGH LEVEL PRIOR TO FOURTH DOSE AND ADJUST DOSE APPROPRIATE AT THAT POINT. -ILA BARBOSA PHARMD
[2018-11-26 18:23] LABS: Microscopic, Urine URINE MICROSCOPIC (MICROSCOPIC)
[2018-11-26 18:27] LABS: Appearance,Urine CLEAR (Clear); Blood, Urine TRACE-I (Negative); Color,Urine ORANGE (Yellow); Glucose,Urine (UA) Negative (Negative); Ketones,Urine Negative (Negative); Leukocyte Esterase,Urine TRACE (Negative); Protein,Urine Negative (Negative); Specific Gravity, Urine <= 1.005 (1.005-1.030)
[2018-11-26 18:34] LABS: Bilirubin,Urine Negative (Negative)
[2018-11-26 18:40] LABS: RBC,Urine Occasional #/hpf (0-3); WBC,Urine Occasional #/hpf (0-3)
[2018-11-26 18:41] LABS: Bacteria,Urine Trace /lpf
[2018-11-27 06:51] LABS: Basophils % 0.2 % (0.1-2.0); Eosinophils % 0.7 % (0.1-12.0); Hematocrit 28.5 % (37.0-47.0); Hemoglobin 8.7 g/dL (12.2-16.2); Lymphocytes # 1.3 K/mm3 (0.7-4.5); Lymphocytes % 24.3 % (10-50); Mean Corpuscular HGB Conc 30.6 g/dL (31.8-35.4); Mean Corpuscular Hemoglobin 26.7 pg (27.0-31.2); Mean Corpuscular Volume 87.4 fl (81-99); Mean Platelet Volume 6.9 fl (7.4-10.4); Monocytes # 0.6 K/mm3 (0.1-1.0); Monocytes % 11.1 % (1.7-9.3); Neutrophils # 3.3 K/mm3 (1.8-7.8); Neutrophils % 63.8 % (37.0-80.0); Platelet Count 405 K/mm3 (142-424); Red Blood Count 3.27 M/mm3 (4.20-5.40); Red Cell Distribution Width 18.5 % (11.5-17.5); White Blood Count 5.2 K/mm3 (4.8-10.8)
[2018-11-27 07:08] LABS: Albumin/Globulin Ratio 0.2 (1.1-1.8); Calcium 8.4 mg/dL (8.5-10.1)
--- NOTE | 2018-11-27 08:18 | Progress Note ---
Addendum entered and electronically signed by Nanette Hanna APRN 11/27/18 08:23: Potassium low and patient started on p.o. potassium Original Note: <Nanette Hanna - Last Filed: 11/27/18 08:15> Internal Medicine - PN: Subj *Date: 11/27/18 *Time: 08:15 Interval history: Patient states she does not feel very well this morning but does not know why. She is breathing without difficulty and denies chest pain. She states she is s omewhat nauseated at times. Did not sleep well during the night. She continues to have pain in her legs with the right hurting a little more than the left. MRI of the right knee to be done or is pending Laboratory Tests 11/27/18 11/27/18 06:22 06:22 WBC 5.2 RBC 3.27 L Hgb 8.7 L Hct 28.5 L Plt Count 405 Sodium 139 Potassium 3.0 L Chloride 102 Carbon Dioxide 31 Anion Gap 9.0 BUN 8 Creatinine 0.66 Glucose 121 H Calcium 8.4 L Total Bilirubin 1.0 AST 22 ALT 15 Alkaline Phosphatase 65 Total Protein 7.0 Albumin 1.0 L Globulin 6.0 H Albumin/Globulin Ratio 0.2 L Exam Vital signs and Labs for Last 24 Hours: Temp Pulse Resp BP Pulse Ox 98.2 F 89 16 134/69 94 L 11/27/18 08:00 11/27/18 08:00 11/27/18 08:00 11/27/18 08:00 11/27/18 08:00 Laboratory Results - last 24 hr 11/22/18 18:18: Urine Color [place], Urine Appearance Clear, Urine pH 6.0, Ur Specific [place] <= 1.005, Urine Protein Negative, Urine Glucose (UA) Negative, Urine Ketones Negative, Urine Blood Trace-i, Urine Nitrate Negative, Urine Bilirubin Negative, Urine Urobilinogen 4.0, Ur Leukocyte Esterase Trace, Urine RBC Occasional, Urine WBC Occasional, Ur Squamous Epith Cells 3-5, Urine Bacteria Trace 11/27/18 06:22: Hemoglobin A1c 6.1 11/27/18 06:22: WBC 5.2, RBC 3.27 L, Hgb 8.7 L, Hct 28.5 L, MCV 87.4, MCH 26.7 L , MCHC 30.6 L, RDW 18.5 H, Plt Count 405, MPV 6.9 L, Neut % (Auto) 63.8, Lymph % (Auto) 24.3, [place] % (Auto) 11.1 H, Eos % (Auto) 0.7, Baso % (Auto) 0.2, Neut # (Auto) 3.3, Lymph # (Auto) 1.3, [place] # (Auto) 0.6, Eos # (Auto) 0.0, Baso # (Auto) 0.0 11/27/18 06:22: Sodium 139, Potassium 3.0 L, Chloride 102, Carbon Dioxide 31, Anion Gap 9.0, BUN 8, Creatinine 0.66, Estimated Creat Clear 64, Estimated GFR 87, Est GFR ( Amer) 105, Glucose 121 H, Calcium 8.4 L, Total Bilirubin 1.0, AST 22, ALT 15, Alkaline Phosphatase 65, Total Protein 7.0, Albumin 1.0 L, Globulin 6.0 H, Albumin/Globulin Ratio 0.2 L I & O for Last 24 hours: Intake & Output 11/24/18 11/25/18 11/26/18 11/27/18 11:59 11:59 11:59 11:59 Intake Total 2309 / 2309 2668 / 2668 1895 / 1895 1536 / 1536 Output Total 2600 / 2600 Balance 2309 / 2309 2668 / 2668 1894 / 1894 -1064 / -1064 Weight 181 lb 6 oz 194 lb 8 oz 198 lb 4.011 oz 194 lb 0.285 oz Microbiology Reports for the Last 24 Hours: Microbiology 11/24/18 15:30 Aspirate - Aspirate Gram Stain - Final 11/24/18 15:30 Aspirate - Aspirate Body Fluid Culture - Final Staphylococcus aureus#2 Staphylococcus aureus 11/23/18 17:00 Aspirate - Aspirate Gram Stain - Final 11/23/18 17:00 Aspirate - Aspirate Body Fluid Culture - Final Staphylococcus aureus Staphylococcus aureus#2 - Constitutional no acute distress Comments: Awake and alert - *Routine Respiratory Exam Present: CTA bilaterally - *Routine Cardiovascular Exam Present: RRR, murmur - *Routine Abdominal Exam Present: soft, tenderness Comments: Epigastrium - *Routine Extremities Exam Present: edema Comments: Less edema left lower leg. Edema of the right leg remains about the same. - *Routine Neurological Exam Present: alert Seems alert and answers questions appropriately Assessment and Plan (1) HCAP (healthcare-associated pneumonia) Current visit: Yes Status: Acute Category: Medical Code(s): J18.9 - Pneumonia, unspecified organism (2) Iron deficiency anemia Current visit: Yes Status: Acute Category: Medical Code(s): D50.9 - Iron deficiency anemia, unspecified (3) Elevated d-dimer Current visit: Yes Status: Acute Category: Medical Code(s): R79.89 - Other specified abnormal findings of blood chemistry (4) History of CVA (cerebrovascular accident) Current visit: Yes Status: Chronic Category: Medical Code(s): Z86.73 - Personal history of transient ischemic attack (TIA), and cerebral infarction without residual deficits (5) Type 2 diabetes mellitus Current visit: Yes Status: Chronic Category: Medical Code(s): E11.9 - Type 2 diabetes mellitus without complications (6) Hyperlipidemia Current visit: Yes Status: Chronic Category: Medical Code(s): E78.5 - Hyperlipidemia, unspecified (7) History of encephalopathy Current visit: Yes Status: Chronic Category: Medical Code(s): Z86.69 - Personal history of other diseases of the nervous system and sense organs (8) Spinal stenosis Current visit: Yes Status: Chronic Category: Medical Code(s): M48.00 - Spinal stenosis, site unspecified (9) Factor 5 Leiden mutation, heterozygous Current visit: Yes Status: Chronic Category: Medical Code(s): D68.51 - Activated protein C resistance (10) Obstructive sleep apnea Current visit: Yes Status: Chronic Category: Medical Code(s): G47.33 - Obstructive sleep apnea (adult) (pediatric) (11) Osteoporosis Current visit: Yes Status: Chronic Category: Medical Code(s): M81.0 - Age- related osteoporosis without current pathological fracture (12) Dementia Current visit: Yes Status: Chronic Category: Medical Code(s): F03.90 - Unspecified dementia without behavioral disturbance (13) Hypothyroidism Current visit: Yes Status: Acute Category: Medical Code(s): E03.9 - Hypothyroidism, unspecified (14) Septic arthritis of knee, right Current visit: Yes Status: Acute Category: Medical Code(s): M00.9 - Pyogenic arthritis, unspecified - Assessment and plan all Dx Assessment and Plan for all problems:: To have surgery on the right knee is planned for tomorrow by Dr. Slater. We will continue with current care for the pneumonia. <Mustapha Best - Last Filed: 11/28/18 08:30> Exam Vital signs and Labs for Last 24 Hours: Temp Pulse Resp BP Pulse Ox 98.2 F 89 16 134/69 94 L 11/27/18 08:00 11/27/18 08:00 11/27/18 08:00 11/27/18 08:00 11/27/18 08:00 Laboratory Results - last 24 hr 11/22/18 18:18: Urine Color [place], Urine Appearance Clear, Urine pH 6.0, Ur Specific [place] <= 1.005, Urine Protein Negative, Urine Glucose (UA) Negative, Urine Ketones Negative, Urine Blood Trace-i, Urine Nitrate Negative, Urine Bilirubin Negative, Urine Urobilinogen 4.0, Ur Leukocyte Esterase Trace, Urine RBC Occasional, Urine WBC Occasional, Ur Squamous Epith Cells 3-5, Urine Bacteria Trace 11/27/18 06:22: Hemoglobin A1c 6.1 11/27/18 06:22: WBC 5.2, RBC 3.27 L, Hgb 8.7 L, Hct 28.5 L, MCV 87.4, MCH 26.7 L , MCHC 30.6 L, RDW 18.5 H, Plt Count 405, MPV 6.9 L, Neut % (Auto) 63.8, Lymph % (Auto) 24.3, [place] % (Auto) 11.1 H, Eos % (Auto) 0.7, Baso % (Auto) 0.2, Neut # (Auto) 3.3, Lymph # (Auto) 1.3, [place] # (Auto) 0.6, Eos # (Auto) 0.0, Baso # (Auto) 0.0 11/27/18 06:22: Sodium 139, Potassium 3.0 L, Chloride 102, Carbon Dioxide 31, Anion Gap 9.0, BUN 8, Creatinine 0.66, Estimated Creat Clear 64, Estimated GFR 87, Est GFR ( Amer) 105, Glucose 121 H, Calcium 8.4 L, Total Bilirubin 1.0, AST 22, ALT 15, Alkaline Phosphatase 65, Total Protein 7.0, Albumin 1.0 L, Globulin 6.0 H, Albumin/Globulin Ratio 0.2 L I & O for Last 24 hours: Intake & Output 11/24/18 11/25/18 11/26/18 11/27/18 11:59 11:59 11:59 11:59 Intake Total 2309 / 2309 2668 / 2668 1895 / 1895 1536 / 1536 Output Total 2600 / 2600 Balance 2309 / 2309 2668 / 2668 1894 / 1894 -1064 / -1064 Weight 181 lb 6 oz 194 lb 8 oz 198 lb 4.011 oz 194 lb 0.285 oz Microbiology Reports for the Last 24 Hours: Microbiology 11/24/18 15:30 Aspirate - Aspirate Gram Stain - Final 11/24/18 15:30 Aspirate - Aspirate Body Fluid Culture - Final Staphylococcus aureus#2 Staphylococcus aureus 11/23/18 17:00 Aspirate - Aspirate Gram Stain - Final 11/23/18 17:00 Aspirate - Aspirate Body Fluid Culture - Final Staphylococcus aureus Staphylococcus aureus#2 Assessment and Plan (1) HCAP (healthcare-associated pneumonia) Current visit: Yes Status: Acute Category: Medical Code(s): J18.9 - Pneumonia, unspecified organism (2) Iron deficiency anemia Current visit: Yes Status: Acute Category: Medical Code(s): D50.9 - Iron deficiency anemia, unspecified (3) Elevated d-dimer Current visit: Yes Status: Acute Category: Medical Code(s): R79.89 - Other specified abnormal findings of blood chemistry (4) History of CVA (cerebrovascular accident) Current visit: Yes Status: Chronic Category: Medical Code(s): Z86.73 - Personal history of transient ischemic attack (TIA), and cerebral infarction without residual deficits (5) Type 2 diabetes mellitus Current visit: Yes Status: Chronic Category: Medical Code(s): E11.9 - Type 2 diabetes mellitus without complications (6) Hyperlipidemia Current visit: Yes Status: Chronic Category: Medical Code(s): E78.5 - Hyperlipidemia, unspecified (7) History of encephalopathy Current visit: Yes Status: Chronic Category: Medical Code(s): Z86.69 - Personal history of other diseases of the nervous system and sense organs (8) Spinal stenosis Current visit: Yes Status: Chronic Category: Medical Code(s): M48.00 - Spinal stenosis, site unspecified (9) Factor 5 Leiden mutation, heterozygous Current visit: Yes Status: Chronic Category: Medical Code(s): D68.51 - Activated protein C resistance (10) Obstructive sleep apnea Current visit: Yes Status: Chronic Category: Medical Code(s): G47.33 - Obstructive sleep apnea (adult) (pediatric) (11) Osteoporosis Current visit: Yes Status: Chronic Category: Medical Code(s): M81.0 - Age- related osteoporosis without current pathological fracture (12) Dementia Current visit: Yes Status: Chronic Category: Medical Code(s): F03.90 - Unspecified dementia without behavioral disturbance (13) Hypothyroidism Current visit: Yes Status: Acute Category: Medical Code(s): E03.9 - Hypothyroidism, unspecified (14) Septic arthritis of knee, right Start date: 11/26/18 (due to MRSA) Current visit: Yes Status: Acute Category: Medical Code(s): M00.9 - Pyogenic arthritis, unspecified (15) MRSA infection Current visit: Yes Status: Acute Category: Medical Code(s): A49.02 - Methicillin resistant Staphylococcus aureus infection, unspecified site - Assessment and plan all Dx Assessment and Plan for all problems:: Patient seen and examined this AM. Not as perky today but no new complaints. Concur with elidia.
[2018-11-28 06:50] LABS: Basophils % 0.2 % (0.1-2.0); Eosinophils # 0.1 K/mm3 (0.0-0.4); Eosinophils % 1.6 % (0.1-12.0); Hematocrit 28.6 % (37.0-47.0); Lymphocytes # 1.2 K/mm3 (0.7-4.5); Lymphocytes % 24.7 % (10-50); Mean Corpuscular HGB Conc 31.3 g/dL (31.8-35.4); Mean Corpuscular Hemoglobin 27.2 pg (27.0-31.2); Mean Corpuscular Volume 86.9 fl (81-99); Mean Platelet Volume 7.3 fl (7.4-10.4); Monocytes # 0.3 K/mm3 (0.1-1.0); Neutrophils # 3.4 K/mm3 (1.8-7.8); Neutrophils % 67.5 % (37.0-80.0); Platelet Count 431 K/mm3 (142-424); Red Blood Count 3.29 M/mm3 (4.20-5.40); Red Cell Distribution Width 18.2 % (11.5-17.5)
[2018-11-28 07:02] LABS: Anion Gap 7.3 mEq/L (5-15); Calcium 8.5 mg/dL (8.5-10.1); Potassium 3.3 mmoL/L (3.5-5.1)
[2018-11-28 07:57] LABS: Erythrocyte Sedimentation Rate > 120 mm/hr (0-30)
--- NOTE | 2018-11-28 08:06 | Progress Note ---
<Nisha Jacinto - Last Filed: 11/28/18 08:03> Internal Medicine - PN: Subj *Date: 11/28/18 *Time: 08:03 Interval history: Patient is sleeping this morning and does not wake up with exam. Her family member states she has been in a lot of pain in her right knee and leg. She has been nauseated and complaining of some pain in her lower abdomen. Her appetite has been decreased. Exam Vital signs and Labs for Last 24 Hours: Temp Pulse Resp BP Pulse Ox 99.4 F 88 17 137/77 92 L 11/28/18 04:00 11/28/18 05:55 11/28/18 04:00 11/28/18 04:00 11/28/18 05:55 Laboratory Results - last 24 hr 11/25/18 06:30: Rheumatoid Factor Titer <10.0 11/27/18 06:22: Hemoglobin A1c 6.1 11/27/18 17:43: Vancomycin Trough 8.8 L 11/28/18 06:33: WBC 5.0, RBC 3.29 L, Hgb 9.0 L, Hct 28.6 L, MCV 86.9, MCH 27.2, MCHC 31.3 L, RDW 18.2 H, Plt Count 431 H, MPV 7.3 L, Neut % (Auto) 67.5, Lymph % (Auto) 24.7, [place] % (Auto) 6.0, Eos % (Auto) 1.6, Baso % (Auto) 0.2, Neut # (Auto) 3.4, Lymph # (Auto) 1.2, [place] # (Auto) 0.3, Eos # (Auto) 0.1, Baso # (Auto) 0.0, ESR > 120 H 11/28/18 06:33: C-Reactive Protein 14.9 H 11/28/18 06:33: Sodium 141, Potassium 3.3 L, Chloride 105, Carbon Dioxide 32, Anion Gap 7.3, BUN 6 L, Creatinine 0.65, Estimated Creat Clear 64, Estimated GFR 88, Est GFR ( Amer) 107, Glucose 105, Calcium 8.5 I & O for Last 24 hours: Intake & Output 11/25/18 11/26/18 11/27/18 11/28/18 11:59 11:59 11:59 11:59 Intake Total 2668 / 2668 1895 / 1895 1536 / 1536 2484 / 2484 Output Total 2600 / 2600 3700 / 3700 Balance 2668 / 2668 1894 / 1894 -1064 / -1064 -1216 / -1216 Weight 194 lb 8 oz 198 lb 4.011 oz 194 lb 0.285 oz Microbiology Reports for the Last 24 Hours: Microbiology 11/22/18 20:33 Blood Blood Culture - Final NO GROWTH AFTER 5 DAYS 11/22/18 20:33 Blood Blood Culture - Final NO GROWTH AFTER 5 DAYS 11/26/18 18:18 Urine,Clean Catch Urine Culture - Preliminary NO GROWTH AFTER 24 HOURS 11/24/18 15:30 Aspirate - Aspirate Gram Stain - Final 11/24/18 15:30 Aspirate - Aspirate Body Fluid Culture - Final Staphylococcus aureus#2 Staphylococcus aureus 11/23/18 17:00 Aspirate - Aspirate Gram Stain - Final 11/23/18 17:00 Aspirate - Aspirate Body Fluid Culture - Final Staphylococcus aureus Staphylococcus aureus#2 - Constitutional Comments: sleeping - *Routine Respiratory Exam Present: rales (faint in the left base, front of the chest is CTA) - *Routine Cardiovascular Exam Present: RRR - *Routine Abdominal Exam Present: soft, normoactive bowel sounds. Absent: tenderness - *Routine Extremities Exam Present: edema (of the right knee and right LE) Assessment and Plan (1) HCAP (healthcare-associated pneumonia) Current visit: Yes Status: Acute Category: Medical Code(s): J18.9 - Pneumonia, unspecified organism (2) Iron deficiency anemia Current visit: Yes Status: Acute Category: Medical Code(s): D50.9 - Iron deficiency anemia, unspecified (3) Elevated d-dimer Current visit: Yes Status: Acute Category: Medical Code(s): R79.89 - Other specified abnormal findings of blood chemistry (4) History of CVA (cerebrovascular accident) Current visit: Yes Status: Chronic Category: Medical Code(s): Z86.73 - Personal history of transient ischemic attack (TIA), and cerebral infarction without residual deficits (5) Type 2 diabetes mellitus Current visit: Yes Status: Chronic Category: Medical Code(s): E11.9 - Type 2 diabetes mellitus without complications (6) Hyperlipidemia Current visit: Yes Status: Chronic Category: Medical Code(s): E78.5 - Hyperlipidemia, unspecified (7) History of encephalopathy Current visit: Yes Status: Chronic Category: Medical Code(s): Z86.69 - Personal history of other diseases of the nervous system and sense organs (8) Spinal stenosis Current visit: Yes Status: Chronic Category: Medical Code(s): M48.00 - Spinal stenosis, site unspecified (9) Factor 5 Leiden mutation, heterozygous Current visit: Yes Status: Chronic Category: Medical Code(s): D68.51 - Activated protein C resistance (10) Obstructive sleep apnea Current visit: Yes Status: Chronic Category: Medical Code(s): G47.33 - Obstructive sleep apnea (adult) (pediatric) (11) Osteoporosis Current visit: Yes Status: Chronic Category: Medical Code(s): M81.0 - Age- related osteoporosis without current pathological fracture (12) Dementia Current visit: Yes Status: Chronic Category: Medical Code(s): F03.90 - Unspecified dementia without behavioral disturbance (13) Hypothyroidism Current visit: Yes Status: Acute Category: Medical Code(s): E03.9 - Hypothyroidism, unspecified (14) Septic arthritis of knee, right Start date: 11/26/18 (due to MRSA) Current visit: Yes Status: Acute Category: Medical Code(s): M00.9 - Pyogenic arthritis, unspecified (15) MRSA infection Current visit: Yes Status: Acute Category: Medical Code(s): A49.02 - Methicillin resistant Staphylococcus aureus infection, unspecified site - Assessment and plan all Dx Assessment and Plan for all problems:: Still awaiting the MRI report. Surgery is planned today on the knee with Dr. Slater. Will continue vancomycin d/t positive MRSA aspirate of the knee. We will continue to treat patient's pneumonia. Potassium is improving. <Mustapha Best - Last Filed: 11/28/18 11:35> Exam Vital signs and Labs for Last 24 Hours: Temp Pulse Resp BP Pulse Ox 98.8 F 85 18 135/72 93 L 11/28/18 08:00 11/28/18 08:00 11/28/18 08:00 11/28/18 08:00 11/28/18 08:00 Laboratory Results - last 24 hr 11/27/18 17:43: Vancomycin Trough 8.8 L 11/28/18 06:33: WBC 5.0, RBC 3.29 L, Hgb 9.0 L, Hct 28.6 L, MCV 86.9, MCH 27.2, MCHC 31.3 L, RDW 18.2 H, Plt Count 431 H, MPV 7.3 L, Neut % (Auto) 67.5, Lymph % (Auto) 24.7, [place] % (Auto) 6.0, Eos % (Auto) 1.6, Baso % (Auto) 0.2, Neut # (Auto) 3.4, Lymph # (Auto) 1.2, [place] # (Auto) 0.3, Eos # (Auto) 0.1, Baso # (Auto) 0.0, ESR > 120 H 11/28/18 06:33: C-Reactive Protein 14.9 H 11/28/18 06:33: Sodium 141, Potassium 3.3 L, Chloride 105, Carbon Dioxide 32, Anion Gap 7.3, BUN 6 L, Creatinine 0.65, Estimated Creat Clear 64, Estimated GFR 88, Est GFR ( Amer) 107, Glucose 105, Calcium 8.5 I & O for Last 24 hours: Intake & Output 11/25/18 11/26/18 11/27/18 11/28/18 11:59 11:59 11:59 11:59 Intake Total 2668 / 2668 1895 / 1895 1536 / 1536 2484 / 2484 Output Total 2600 / 2600 3700 / 3700 Balance 2668 / 2668 1894 / 1894 -1064 / -1064 -1216 / -1216 Weight 194 lb 8 oz 198 lb 4.011 oz 194 lb 0.285 oz 194 lb 0.285 oz Microbiology Reports for the Last 24 Hours: Microbiology 11/22/18 20:33 Blood Blood Culture - Final NO GROWTH AFTER 5 DAYS 11/22/18 20:33 Blood Blood Culture - Final NO GROWTH AFTER 5 DAYS 11/26/18 18:18 Urine,Clean Catch Urine Culture - Preliminary NO GROWTH AFTER 24 HOURS Assessment and Plan (1) HCAP (healthcare-associated pneumonia) Current visit: Yes Status: Acute Category: Medical Code(s): J18.9 - Pneumonia, unspecified organism (2) Iron deficiency anemia Current visit: Yes Status: Acute Category: Medical Code(s): D50.9 - Iron deficiency anemia, unspecified (3) Elevated d-dimer Current visit: Yes Status: Acute Category: Medical Code(s): R79.89 - Other specified abnormal findings of blood chemistry (4) History of CVA (cerebrovascular accident) Current visit: Yes Status: Chronic Category: Medical Code(s): Z86.73 - Personal history of transient ischemic attack (TIA), and cerebral infarction without residual deficits (5) Type 2 diabetes mellitus Current visit: Yes Status: Chronic Category: Medical Code(s): E11.9 - Type 2 diabetes mellitus without complications (6) Hyperlipidemia Current visit: Yes Status: Chronic Category: Medical Code(s): E78.5 - Hyperlipidemia, unspecified (7) History of encephalopathy Current visit: Yes Status: Chronic Category: Medical Code(s): Z86.69 - Personal history of other diseases of the nervous system and sense organs (8) Spinal stenosis Current visit: Yes Status: Chronic Category: Medical Code(s): M48.00 - Spinal stenosis, site unspecified (9) Factor 5 Leiden mutation, heterozygous Current visit: Yes Status: Chronic Category: Medical Code(s): D68.51 - Activated protein C resistance (10) Obstructive sleep apnea Current visit: Yes Status: Chronic Category: Medical Code(s): G47.33 - Obstructive sleep apnea (adult) (pediatric) (11) Osteoporosis Current visit: Yes Status: Chronic Category: Medical Code(s): M81.0 - Age- related osteoporosis without current pathological fracture (12) Dementia Current visit: Yes Status: Chronic Category: Medical Code(s): F03.90 - Unspecified dementia without behavioral disturbance (13) Hypothyroidism Current visit: Yes Status: Acute Category: Medical Code(s): E03.9 - Hypothyroidism, unspecified (14) Septic arthritis of knee, right Start date: 11/26/18 (due to MRSA) Current visit: Yes Status: Acute Category: Medical Code(s): M00.9 - Pyogenic arthritis, unspecified (15) MRSA infection Current visit: Yes Status: Acute Category: Medical Code(s): A49.02 - Methicillin resistant Staphylococcus aureus infection, unspecified site - Assessment and plan all Dx Assessment and Plan for all problems:: Patient seen and examined this AM. She has had some nausea and complaints of abdominal pain. Bowels have been moving. Her abdomen is soft and nondistended. Mild diffuse low abdominal tendereness. Lungs are clear K+ has improved to 3.3. SHe is stable to proceed with surgery on her knee this AM.
--- NOTE | 2018-11-28 08:15 | Pharmacy Consult Notes ---
- Pharmacy Consult Date: 11/28/18 Time: 08:12 Referring provider: DR. KERN Reason for Consult:: VANCOMYCIN LEVEL AND DOSING CHANGE Allergies and ADEs:: Allergies Allergy/AdvReac Type Severity Reaction Status Date / Time No Known Allergies Allergy Verified 11/21/18 09:32 Home Medications:: Home Medications Medication Instructions Recorded Confirmed Type Acetaminophen [Tylenol] 650 mg PO Q4HP PRN 11/21/18 11/22/18 History Aspirin [Aspirin 81mg EC Tab] 81 mg PO DAILY 11/21/18 11/22/18 History Atorvastatin Calcium [Atorvastatin 10 mg PO HS 11/21/18 11/22/18 History 10mg Tab] Citalopram Hydrobromide [Celexa 20 mg PO DAILY 11/21/18 11/22/18 History 20mg Tablet] Cyanocobalamin (Vitamin B-12) 1,000 mcg PO DAILY 11/21/18 11/22/18 History [Vitamin B-12] Ferrous Sulfate [Ferrous Sulfate 325 mg PO DAILY 11/21/18 11/22/18 History 325mg Tablet] Hydrocodone/Acetaminophen [[place] 1 tab PO Q4H 11/21/18 11/23/18 History 10-325 Tablet] Magnesium Oxide [Magnesium] 400 mg PO DAILY 11/21/18 11/22/18 History Pantoprazole Sodium [Protonix 40mg 40 mg PO DAILY 11/21/18 11/22/18 History tablet] Pregabalin [Lyrica 100mg Cap] 100 mg PO TID 11/21/18 11/22/18 History Rivaroxaban [Xarelto 20mg Tablet] 20 mg PO HS 11/21/18 11/22/18 History fentaNYL [Duragesic] 50 mcg TD Q72H 11/21/18 11/23/18 History Height: 1.75 m Weight: 88.005 kg Laboratory Results:: Laboratory Results - last 24 hr 11/25/18 06:30: Rheumatoid Factor Titer <10.0 11/27/18 06:22: Hemoglobin A1c 6.1 11/27/18 17:43: Vancomycin Trough 8.8 L 11/28/18 06:33: WBC 5.0, RBC 3.29 L, Hgb 9.0 L, Hct 28.6 L, MCV 86.9, MCH 27.2, MCHC 31.3 L, RDW 18.2 H, Plt Count 431 H, MPV 7.3 L, Neut % (Auto) 67.5, Lymph % (Auto) 24.7, [place] % (Auto) 6.0, Eos % (Auto) 1.6, Baso % (Auto) 0.2, Neut # (Auto) 3.4, Lymph # (Auto) 1.2, [place] # (Auto) 0.3, Eos # (Auto) 0.1, Baso # (Auto) 0.0, ESR > 120 H 11/28/18 06:33: C-Reactive Protein 14.9 H 11/28/18 06:33: Sodium 141, Potassium 3.3 L, Chloride 105, Carbon Dioxide 32, Anion Gap 7.3, BUN 6 L, Creatinine 0.65, Estimated Creat Clear 64, Estimated GFR 88, Est GFR ( Amer) 107, Glucose 105, Calcium 8.5 Medical History: Reports:: Cerebrovascular Accident, Deep Vein Thrombosis, Dementia, Depression, Diabetes Mellitus Type 2, Heart Murmur, Hyperlipidemia, MRSA, Transient Ischemic Attacks (TIA) Assessment and Plan (1) HCAP (healthcare-associated pneumonia) Current visit: Yes Status: Acute Category: Medical Code(s): J18.9 - Pneumonia, unspecified organism (2) Iron deficiency anemia Current visit: Yes Status: Acute Category: Medical Code(s): D50.9 - Iron deficiency anemia, unspecified (3) Elevated d-dimer Current visit: Yes Status: Acute Category: Medical Code(s): R79.89 - Other specified abnormal findings of blood chemistry (4) History of CVA (cerebrovascular accident) Current visit: Yes Status: Chronic Category: Medical Code(s): Z86.73 - Personal history of transient ischemic attack (TIA), and cerebral infarction without residual deficits (5) Type 2 diabetes mellitus Current visit: Yes Status: Chronic Category: Medical Code(s): E11.9 - Type 2 diabetes mellitus without complications (6) Hyperlipidemia Current visit: Yes Status: Chronic Category: Medical Code(s): E78.5 - Hyperlipidemia, unspecified (7) History of encephalopathy Current visit: Yes Status: Chronic Category: Medical Code(s): Z86.69 - Personal history of other diseases of the nervous system and sense organs (8) Spinal stenosis Current visit: Yes Status: Chronic Category: Medical Code(s): M48.00 - Spinal stenosis, site unspecified (9) Factor 5 Leiden mutation, heterozygous Current visit: Yes Status: Chronic Category: Medical Code(s): D68.51 - Activated protein C resistance (10) Obstructive sleep apnea Current visit: Yes Status: Chronic Category: Medical Code(s): G47.33 - Obstructive sleep apnea (adult) (pediatric) (11) Osteoporosis Current visit: Yes Status: Chronic Category: Medical Code(s): M81.0 - Age- related osteoporosis without current pathological fracture (12) Dementia Current visit: Yes Status: Chronic Category: Medical Code(s): F03.90 - U nspecified dementia without behavioral disturbance (13) Hypothyroidism Current visit: Yes Status: Acute Category: Medical Code(s): E03.9 - Hypothyroidism, unspecified (14) Septic arthritis of knee, right Start date: 11/26/18 (due to MRSA) Current visit: Yes Status: Acute Category: Medical Code(s): M00.9 - Pyogenic arthritis, unspecified (15) MRSA infection Current visit: Yes Status: Acute Category: Medical Code(s): A49.02 - Methicillin resistant Staphylococcus aureus infection, unspecified site - Assessment and plan all Dx Assessment and Plan for all problems:: PATIENT'S VANCOMYCIN TROUGH 8.8 MCG/ML OVERNIGHT. CHANGED DOSING INTERVAL FROM Q24H TO Q18H AT THAT TIME. PATIENT TO CONTINUE WITH VANCOMYCIN 1500 MG Q18H AT THIS TIME. PHARMACY WILL FOLLOW DAILY AND ADJUST APPROPRIATE. KARELY DE DIOS, FREDRICKD
--- NOTE | 2018-11-28 08:32 | Progress Note ---
[facility] Anesthesia Checklist - Patient Identification Patient Identification: Arm Band, Family, Verbal (Name & ) - Structural Data Admitted From: Inpatient Planned Operative Procedure/s: r knee scope Consent for Planned Operative Procedure(s) Verified: Yes Verified Documents: History and Physical - NPO Status Verified Time NPO: 00:00 - Additional verifications Patient : No Anesthesia Reactions: No Hx Blood Transfusions: No Blood Transfusion Reaction: No Cephalosporin Allergy: No Previous Colonoscopy: No - Cardiovascular Assessment Heart Sounds: S1 & S2 Pulse Strength: Baseline Pulse Rhythm: Regular Peripheral Edema: No - Airway Assessment C-Spine Mobility Assessed: Yes TMJ Mobility Assessed: Yes Dentition: Good Dentition - Neurological Assessment Level of Consciousness: Awake, Alert, Appropriate Hx Seizures: No Numbness or tingling in extremities: No - Anesthesia Plan Anesthesia Risk discussed: Yes Anesthesia Plan: Verified ASA Class: III Anesthesia Type: General [facility] History I have reviewed the patient's past medical history: Yes Medical History: Reports:: Cerebrovascular Accident, Deep Vein Thrombosis, Demen tia, Depression, Diabetes Mellitus Type 2, Heart Murmur, Hyperlipidemia, MRSA, Transient Ischemic Attacks (TIA) *Have you ever received a pneumonia vaccine?: Yes *Have you received a flu vaccine this season?: Yes Other Medical History: Reports: Anemia, Arthritis (OSTEOARTHRITIS) Laterality Cases: Bilateral: Tonsillectomy Other Surgeries: Yes: Hysterectomy-Total, Other (BACK SX, Vein ablation x 5) - *Social History Smoking Status: Never smoker Alcohol Intake: never *Occupational Status:: disabled Housing: half-way Household Members: none *Travel in the last 8 weeks: Inside the [place] - Psychiatric History Expresses thoughts of harming self/others: None Suicide Plan Description: No Plan Pschychiatric History:: Reports:: Depression Family Hx:: Bleeding Disorder, Cancer (Lung, colon, pancreatic, leukemia), Coronary Artery Disease, Diabetes, Heart Attack, Stroke, Other (Factor 5 Deficiency)
--- NOTE | 2018-11-28 08:47 | Progress Note ---
Subjective Date: 11/28/18 Time: 08:45 Principal diagnosis: Septic arthritis, right knee PN: Obj Ex Vital signs: Temp Pulse Resp BP Pulse Ox 98.8 F 85 18 135/72 93 L 11/28/18 08:00 11/28/18 08:00 11/28/18 08:00 11/28/18 08:00 11/28/18 08:00 Narrative: Laboratory Results - last 24 hr 11/25/18 06:30: Rheumatoid Factor Titer <10.0 11/27/18 17:43: Vancomycin Trough 8.8 L 11/28/18 06:33: WBC 5.0, RBC 3.29 L, Hgb 9.0 L, Hct 28.6 L, MCV 86.9, MCH 27.2, MCHC 31.3 L, RDW 18.2 H, Plt Count 431 H, MPV 7.3 L, Neut % (Auto) 67.5, Lymph % (Auto) 24.7, [place] % (Auto) 6.0, Eos % (Auto) 1.6, Baso % (Auto) 0.2, Neut # (Auto) 3.4, Lymph # (Auto) 1.2, [place] # (Auto) 0.3, Eos # (Auto) 0.1, Baso # (Auto) 0.0, ESR > 120 H 11/28/18 06:33: C-Reactive Protein 14.9 H 11/28/18 06:33: Sodium 141, Potassium 3.3 L, Chloride 105, Carbon Dioxide 32, Anion Gap 7.3, BUN 6 L, Creatinine 0.65, Estimated Creat Clear 64, Estimated GFR 88, Est GFR ( Amer) 107, Glucose 105, Calcium 8.5 - Urinary Catheter Management Ribeiro Cath placed during this visit: yes Insertion date: 11/26/18 Insertion time: 18:20 Progress Note: A&P (1) HCAP (healthcare-associated pneumonia) Status: Acute Current Visit: Yes (2) Iron deficiency anemia Status: Acute Current Visit: Yes (3) Elevated d-dimer Status: Acute Current Visit: Yes (4) History of CVA (cerebrovascular accident) Status: Chronic Current Visit: Yes (5) Type 2 diabetes mellitus Status: Chronic Current Visit: Yes (6) Hyperlipidemia Status: Chronic Current Visit: Yes (7) History of encephalopathy Status: Chronic Current Visit: Yes (8) Spinal stenosis Status: Chronic Current Visit: Yes (9) Factor 5 Leiden mutation, heterozygous Status: Chronic Current Visit: Yes (10) Obstructive sleep apnea Status: Chronic Current Visit: Yes (11) Osteoporosis Status: Chronic Current Visit: Yes (12) Dementia Status: Chronic Current Visit: Yes (13) Hypothyroidism Status: Acute Current Visit: Yes (14) Septic arthritis of knee, right Status: Acute Current Visit: Yes (15) MRSA infection Status: Acute Current Visit: Yes
--- NOTE | 2018-11-28 13:03 | Progress Note ---
[facility] Anesthesia Record Part I Intake, IV Amount: 2,500 Estimated blood loss (mL): 0 Urine output (mL): 2,000 Blood Pressure: 147/80 SaO2: 95 Pulse Rate: 76 Respiratory Rate: 20 Temperature: 98.5 F Patient is:: Awake, Stable Stable to PACU at:: 13:05
--- NOTE | 2018-11-28 13:03 | Progress Note ---
[facility] Anesthesia Record Part II Discharge Time: 13:35 Destination: floor PACU nurse assessment reviewed?: Yes Patient Condition:: Good Anesthesia Complications:: None Swallowing reflex intact?: Yes Cyanosis?: No
--- NOTE | 2018-11-28 14:36 | Operative Note ---
Pre-op Diagnosis:: Septic arthritis, right knee Post-op Diagnosis:: Septic arthritis, right knee Procedure performed:: Arthroscopic debridement and washout, right knee Surgeon:: Dayo Slater MD INSPECTOR FILTER TIP:: Jorge Hines Anesthesia: GETA Estimated blood loss (mL): 20 Operative note:: On the day of the procedure the patient was met in the preoperative area and positively identified. A physical examination was performed and documented. The limb was marked. I again discussed the diagnosis, management options including both nonsurgical and surgical. I discussed the proposed surgical procedure, risks and benefits and alternatives in detail. The complications discussed include but are not limited to infection, injury to nerves and blood vessels, injury to the ligaments and tendons, knee stiffness, arthrofibrosis, incomplete relief, incomplete functional recovery, DVT, PE, CRPS, complications related to anesthesia including heart attack, stroke and even . I have also discussed about the likely need for further surgery in future. I told her/him that there were no guarantees with surgery; she/he could be no better or even worse. We also discussed the postoperative recovery and rehabilitation protocol. I believe the patient to be well informed with regard to the proposed surgery. I told her/him that it would take few months for full recovery of the knee after surgery. She/He expressed a full understanding and wished to proceed with the planned surgery. The consent form was reviewed and signed. Patient was brought to the operating room and placed supine on the operating table. All the bony prominences were appropriately padded. A general anesthesia was administered by the anesthesia team. A well-padded tourniquet cuff was placed over the right upper thigh. Examination of the right knee under anesthesia was performed. A small amount of knee effusion was noted. Knee range of motion was 0-130 degrees of flexion. Knee joint is noted to be ligamentously stable. The right knee was then prepped and draped in the usual sterile fashion. A preprocedure timeout was performed as per protocol. Administration of prophylactic IV antibiotics was confirmed with the anesthetic team. The arthroscopic portals were marked on the skin. The limb was exsanguinated with Esmarch bandage and the tourniquet was inflated to 325 mmHg- please see the nursing notes for tourniquet time. I then made an anterolateral arthroscopic portal and introduced the arthroscope and performed the knee examination. I then created an anteromedial portal under direct vision. Findings included diffuse grade 2-3 degenerative changes over the patellar articular surface and over the medial femoral condyle. Grade 2 changes were noted over the trochlea. The lateral compartment was relatively well preserved. A fairly large thickened and hyperemic medial plica was noted and its corresponding abrasion area on the medial femoral condyle noted as well. The medial meniscus had a complex degenerative tear involving the body and posterior horn. The medial tibial plateau articular surface was well preserved. The anterior cruciate ligament and posterior cruciate ligaments were intact. No loose bodies were noted. Moderate synovitis was noted in the knee. After performing a thorough arthroscopic examination, I proceeded to perform loose body removal, resection of the medial plica and chondroplasty. Using the arthroscopic instruments and shaver, I removed the multiple osseous and osteo- cartilaginous loose bodies. I then performed a resection of the thickened medial plica with the arthroscopic shaver. With the arthroscopic shaver I also performed a chondroplasty removing the loose articular cartilage over the lateral and medial femoral condyles as well as over the patellofemoral articular surfaces. There was a large area of unstable full-thickness cartilage over the weightbearing area of the lateral femoral condyle which we had to remove using the curette on the arthroscopic shaver. Both the menisci and the cruciate ligaments were intact. The knee joint was thoroughly washed out at the end of the procedure. The instruments were removed, the knee joint was emptied of the irrigating fluid and the arthroscopic sheath was removed. The portals were sutured with 2-0 Ethilon [id number] sutures. I then injected 40 mL of plain Marcaine around the portals as well as into the knee joint for postoperative pain relief. Sterile dressings and the pressure bandage was applied. The tourniquet cuff was removed from the thigh. The patient was then reversed from the anesthetic and transferred onto the [facility]. She/He was then transported to the postoperative recovery area in stable condition. She/He tolerated the procedure well and there were no immediate complications. The swab needle and instruments counts were correct according to scrub team at the end of the procedure. Knee immobilizer At this stage, I have decided to proceed with placement of antibiotic beads as patient had extensive joint destruction. The antibiotic beads were prepared on the back table by mixing 10 cc of Osteo-boost with 2 g of vancomycin and 240 mg of gentamicin. We placed the beads around the knee joint using a small piece of suction tubing to push the piece into the knee through the arthroscopic portals. I then proceeding with closure of the arthroscopic portals. Condition: stable Disposition: PACU Specimens:: 1. Samples of joint aspirate and synovial tissue for aerobic and anaerobic culture, AFB stain and TB cultures 2. Synovial tissue for histopathological examination Complications:: None
[2018-11-29 06:52] LABS: Albumin Level 1.3 gm/dL (3.4-5.0); Albumin/Globulin Ratio 0.2 (1.1-1.8); Anion Gap 8.9 mEq/L (5-15); Bilirubin,Total 0.6 mg/dL (0.2-1.0); Calcium 9.2 mg/dL (8.5-10.1); Globulin 5.8 gm/dl (1.3-3.2); Total Protein,Serum 7.1 gm/dL (6.4-8.2)
[2018-11-29 06:54] LABS: Basophils % 0.2 % (0.1-2.0); Eosinophils % 0.4 % (0.1-12.0); Hematocrit 27.5 % (37.0-47.0); Hemoglobin 8.5 g/dL (12.2-16.2); Lymphocytes # 1.1 K/mm3 (0.7-4.5); Lymphocytes % 17.5 % (10-50); Mean Corpuscular Hemoglobin 26.9 pg (27.0-31.2); Mean Corpuscular Volume 86.8 fl (81-99); Mean Platelet Volume 6.9 fl (7.4-10.4); Monocytes # 0.4 K/mm3 (0.1-1.0); Neutrophils # 4.6 K/mm3 (1.8-7.8); Neutrophils % 74.9 % (37.0-80.0); Platelet Count 449 K/mm3 (142-424); Red Blood Count 3.17 M/mm3 (4.20-5.40); Red Cell Distribution Width 18.5 % (11.5-17.5); White Blood Count 6.1 K/mm3 (4.8-10.8)
[2018-11-29 07:02] LABS: Potassium 2.9 mmoL/L (3.5-5.1)
--- NOTE | 2018-11-29 08:12 | Progress Note ---
<Nisha Jacinto - Last Filed: 11/29/18 08:08> Internal Medicine - PN: Subj *Date: 11/29/18 *Time: 08:09 Interval history: Patient states she feels a little better this am. She is nauseated and was unable to eat much breakfast this am. She is still having knee pain but slightly less than before the surgery. Exam Vital signs and Labs for Last 24 Hours: Temp Pulse Resp BP Pulse Ox 99.1 F 92 H 18 130/72 95 11/29/18 08:00 11/29/18 08:00 11/29/18 08:00 11/29/18 08:00 11/29/18 08:00 Laboratory Results - last 24 hr 11/28/18 13:39: POC Glucose 138 H 11/28/18 14:00: Blood Type A Positive, Antibody Screen Positive, Crossmatch (AHG) See Detail 11/28/18 14:00: Antibody Identification Anti-Fya 11/29/18 05:46: WBC 6.1, RBC 3.17 L, Hgb 8.5 L, Hct 27.5 L, MCV 86.8, MCH 26.9 L , MCHC 31.0 L, RDW 18.5 H, Plt Count 449 H, MPV 6.9 L, Neut % (Auto) 74.9, Lymph % (Auto) 17.5, [place] % (Auto) 7.0, Eos % (Auto) 0.4, Baso % (Auto) 0.2, Neut # (Auto) 4.6, Lymph # (Auto) 1.1, [place] # (Auto) 0.4, Eos # (Auto) 0.0, Baso # (Auto) 0.0 11/29/18 05:46: Sodium 139, Potassium 2.9 L*, Chloride 103, Carbon Dioxide 30, Anion Gap 8.9, BUN 8 D, Creatinine 0.66, Estimated Creat Clear 65, Estimated GFR 87, Est GFR ( Amer) 105, Glucose 116 H, Calcium 9.2, Total Bilirubin 0.6, AST 22, ALT 11 L D, Alkaline Phosphatase 63, Total Protein 7.1, Albumin 1.3 L, Globulin 5.8 H, Albumin/Globulin Ratio 0.2 L I & O for Last 24 hours: Intake & Output 02/18/11/27/18 11/28/18 11/29/18 11:59 11:59 11:59 11:59 Intake Total 1895 / 1895 1536 / 1536 2484 / 2484 3800 / 3800 Output Total 2600 / 2600 3700 / 3700 3700 / 3700 Balance 1894 / 1894 -1064 / -1064 -1216 / -1216 100 / 100 Weight 198 lb 4.011 oz 194 lb 0.285 oz 194 lb 0.285 oz 195 lb 1 oz Microbiology Reports for the Last 24 Hours: Microbiology 11/28/18 10:44 Aspirate - Right Gram Stain - Final 11/26/18 18:18 Urine,Clean Catch Urine Culture - Final NO GROWTH AFTER 48 HOURS 11/24/18 15:30 Knee,Right - Aspirate - Final Not Reportable 11/24/18 15:30 Knee,Right - Aspirate - Final Not Reportable 11/24/18 15:30 Knee,Right - Aspirate - Final Not Reportable 11/24/18 15:30 Knee,Right - Aspirate - Final Not Reportable 11/24/18 15:30 Knee,Right - Aspirate - Final Not Reportable 11/24/18 15:30 Knee,Right - Aspirate - Final Not Reportable 11/24/18 15:30 Knee,Right - Aspirate - Final Not Reportable 11/24/18 15:30 Knee,Right - Aspirate - Final Not Reportable - Constitutional no acute distress - *Routine Respiratory Exam Present: CTA bilaterally - *Routine Cardiovascular Exam Present: RRR - *Routine Abdominal Exam Present: soft, normoactive bowel sounds. Absent: tenderness - *Routine Extremities Exam Present: edema (RLE, knee immobilizer in place) Assessment and Plan (1) HCAP (healthcare-associated pneumonia) Current visit: Yes Status: Acute Category: Medical Code(s): J18.9 - Pneumonia, unspecified organism (2) Iron deficiency anemia Current visit: Yes Status: Acute Category: Medical Code(s): D50.9 - Iron deficiency anemia, unspecified (3) Elevated d-dimer Current visit: Yes Status: Acute Category: Medical Code(s): R79.89 - Other specified abnormal findings of blood chemistry (4) History of CVA (cerebrovascular accident) Current visit: Yes Status: Chronic Category: Medical Code(s): Z86.73 - Personal history of transient ischemic attack (TIA), and cerebral infarction without residual deficits (5) Type 2 diabetes mellitus Current visit: Yes Status: Chronic Category: Medical Code(s): E11.9 - Type 2 diabetes mellitus without complications (6) Hyperlipidemia Current visit: Yes Status: Chronic Category: Medical Code(s): E78.5 - Hyperlipidemia, unspecified (7) History of encephalopathy Current visit: Yes Status: Chronic Category: Medical Code(s): Z86.69 - Personal history of other diseases of the nervous system and sense organs (8) Spinal stenosis Current visit: Yes Status: Chronic Category: Medical Code(s): M48.00 - Spinal stenosis, site unspecified (9) Factor 5 Leiden mutation, heterozygous Current visit: Yes Status: Chronic Category: Medical Code(s): D68.51 - Activated protein C resistance (10) Obstructive sleep apnea Current visit: Yes Status: Chronic Category: Medical Code(s): G47.33 - Obstructive sleep apnea (adult) (pediatric) (11) Osteoporosis Current visit: Yes Status: Chronic Category: Medical Code(s): M81.0 - Age- related osteoporosis without current pathological fracture (12) Dementia Current visit: Yes Status: Chronic Category: Medical Code(s): F03.90 - Unspecified dementia without behavioral disturbance (13) Hypothyroidism Current visit: Yes Status: Acute Category: Medical Code(s): E03.9 - Hypothyroidism, unspecified (14) Septic arthritis of knee, right Start date: 11/26/18 (due to MRSA) Current visit: Yes Status: Acute Category: Medical Code(s): M00.9 - Pyogenic arthritis, unspecified (15) MRSA infection Current visit: Yes Status: Acute Category: Medical Code(s): A49.02 - Methicillin resistant Staphylococcus aureus infection, unspecified site - Assessment and plan all Dx Assessment and Plan for all problems:: Operative note reviewed. Will increase oral potassium d/t hypokalemia. Further as per Ortho and Dr. Best. <Mustapha Best - Last Filed: 11/29/18 08:15> Exam Vital signs and Labs for Last 24 Hours: Temp Pulse Resp BP Pulse Ox 99.1 F 92 H 18 130/72 95 11/29/18 08:00 11/29/18 08:00 11/29/18 08:00 11/29/18 08:00 11/29/18 08:00 Laboratory Results - last 24 hr 11/28/18 13:39: POC Glucose 138 H 11/28/18 14:00: Blood Type A Positive, Antibody Screen Positive, Crossmatch (AHG) See Detail 11/28/18 14:00: Antibody Identification Anti-Fya 11/29/18 05:46: WBC 6.1, RBC 3.17 L, Hgb 8.5 L, Hct 27.5 L, MCV 86.8, MCH 26.9 L , MCHC 31.0 L, RDW 18.5 H, Plt Count 449 H, MPV 6.9 L, Neut % (Auto) 74.9, Lymph % (Auto) 17.5, [place] % (Auto) 7.0, Eos % (Auto) 0.4, Baso % (Auto) 0.2, Neut # (Auto) 4.6, Lymph # (Auto) 1.1, [place] # (Auto) 0.4, Eos # (Auto) 0.0, Baso # (Auto) 0.0 11/29/18 05:46: Sodium 139, Potassium 2.9 L*, Chloride 103, Carbon Dioxide 30, Anion Gap 8.9, BUN 8 D, Creatinine 0.66, Estimated Creat Clear 65, Estimated GFR 87, Est GFR ( Amer) 105, Glucose 116 H, Calcium 9.2, Total Bilirubin 0.6, AST 22, ALT 11 L D, Alkaline Phosphatase 63, Total Protein 7.1, Albumin 1.3 L, Globulin 5.8 H, Albumin/Globulin Ratio 0.2 L I & O for Last 24 hours: Intake & Output 11/26/18 11/27/18 11/28/18 11/29/18 11:59 11:59 11:59 11:59 Intake Total 1895 / 1895 1536 / 1536 2484 / 2484 3800 / 3800 Output Total 2600 / 2600 3700 / 3700 3700 / 3700 Balance 1894 / 1894 -1064 / -1064 -1216 / -1216 100 / 100 Weight 198 lb 4.011 oz 194 lb 0.285 oz 194 lb 0.285 oz 195 lb 1 oz Microbiology Reports for the Last 24 Hours: Microbiology 11/28/18 10:44 Aspirate - Right Gram Stain - Final 11/26/18 18:18 Urine,Clean Catch Urine Culture - Final NO GROWTH AFTER 48 HOURS 11/24/18 15:30 Knee,Right - Aspirate - Final Not Reportable 11/24/18 15:30 Knee,Right - Aspirate - Final Not Reportable 11/24/18 15:30 Knee,Right - Aspirate - Final Not Reportable 11/24/18 15:30 Knee,Right - Aspirate - Final Not Reportable 11/24/18 15:30 Knee,Right - Aspirate - Final Not Reportable 11/24/18 15:30 Knee,Right - Aspirate - Final Not Reportable 11/24/18 15:30 Knee,Right - Aspirate - Final Not Reportable 11/24/18 15:30 Knee,Right - Aspirate - Final Not Reportable Assessment and Plan (1) HCAP (healthcare-associated pneumonia) Current visit: Yes Status: Acute Category: Medical Code(s): J18.9 - Pneumonia, unspecified organism (2) Iron deficiency anemia Current visit: Yes Status: Acute Category: Medical Code(s): D50.9 - Iron deficiency anemia, unspecified (3) Elevated d-dimer Current visit: Yes Status: Acute Category: Medical Code(s): R79.89 - Other specified abnormal findings of blood chemistry (4) History of CVA (cerebrovascular accident) Current visit: Yes Status: Chronic Category: Medical Code(s): Z86.73 - Personal history of transient ischemic attack (TIA), and cerebral infarction without residual deficits (5) Type 2 diabetes mellitus Current visit: Yes Status: Chronic Category: Medical Code(s): E11.9 - Type 2 diabetes mellitus without complications (6) Hyperlipidemia Current visit: Yes Status: Chronic Category: Medical Code(s): E78.5 - Hyperlipidemia, unspecified (7) History of encephalopathy Current visit: Yes Status: Chronic Category: Medical Code(s): Z86.69 - Personal history of other diseases of the nervous system and sense organs (8) Spinal stenosis Current visit: Yes Status: Chronic Category: Medical Code(s): M48.00 - Spinal stenosis, site unspecified (9) Factor 5 Leiden mutation, heterozygous Current visit: Yes Status: Chronic Category: Medical Code(s): D68.51 - Activated protein C resistance (10) Obstructive sleep apnea Current visit: Yes Status: Chronic Category: Medical Code(s): G47.33 - Obstructive sleep apnea (adult) (pediatric) (11) Osteoporosis Current visit: Yes Status: Chronic Category: Medical Code(s): M81.0 - Age- related osteoporosis without current pathological fracture (12) Dementia Current visit: Yes Status: Chronic Category: Medical Code(s): F03.90 - Unspecified dementia without behavioral disturbance (13) Hypothyroidism Current visit: Yes Status: Acute Category: Medical Code(s): E03.9 - Hypothyroidism, unspecified (14) Septic arthritis of knee, right Start date: 11/26/18 (due to MRSA) Current visit: Yes Status: Acute Category: Medical Code(s): M00.9 - Pyogenic arthritis, unspecified (15) MRSA infection Current visit: Yes Status: Acute Category: Medical Code(s): A49.02 - Methicillin resistant Staphylococcus aureus infection, unspecified site - Assessment and plan all Dx Assessment and Plan for all problems:: Patient seen and examined. Concur with above.
--- NOTE | 2018-11-29 12:06 | Progress Note ---
Subjective Date: 11/29/18 Time: 11:50 Principal diagnosis: Septic arthritis, right knee Interval history: Patient is status post arthroscopic debridement and washout right knee post op day #1. Patient is sitting up on the bed. Says is doing better today and reports less pain in her right knee. She reports being nauseated and unable to eat well. Her sister is with her in the room. PN: Obj Ex Vital signs: Temp Pulse Resp BP Pulse Ox 98.5 F 85 17 155/87 H 95 11/29/18 11:49 11/29/18 11:49 11/29/18 11:49 11/29/18 11:49 11/29/18 11:49 Narrative: Exam General appearance: alert, active, awake, no acute distress Cardiovascular: regular rate & rhythm, normal peripheral pulses Respiratory: No respiratory distress noted, speaks in full sentences ABD: soft and non tender Genitourinary: Catheter in situ. On examination of the right knee, the dressings are clean, dry and intact. She is in a knee immobilizer. There is 2+ edema of the lower leg and foot and ankle. Distal pulses are 1+. Distal sensation is intact to light touch throughout. She is actively wiggling the foot and toes. - Urinary Catheter Management Ribeiro Cath placed during this visit: yes Urethral indwelling: Yes Reason for continuing: Surgical procedure Insertion date: 11/26/18 Insertion time: 18:20 Progress Note: A&P (1) HCAP (healthcare-associated pneumonia) Status: Acute Current Visit: Yes (2) Iron deficiency anemia Status: Acute Current Visit: Yes (3) Elevated d-dimer Status: Acute Current Visit: Yes (4) History of CVA (cerebrovascular accident) Status: Chronic Current Visit: Yes (5) Type 2 diabetes mellitus Status: Chronic Current Visit: Yes (6) Hyperlipidemia Status: Chronic Current Visit: Yes (7) History of encephalopathy Status: Chronic Current Visit: Yes (8) Spinal stenosis Status: Chronic Current Visit: Yes (9) Factor 5 Leiden mutation, heterozygous Status: Chronic Current Visit: Yes (10) Obstructive sleep apnea Status: Chronic Current Visit: Yes (11) Osteoporosis Status: Chronic Current Visit: Yes (12) Dementia Status: Chronic Current Visit: Yes (13) Hypothyroidism Status: Acute Current Visit: Yes (14) Septic arthritis of knee, right Status: Acute Current Visit: Yes (15) MRSA infection Status: Acute Current Visit: Yes Assessment and Plan for All Diagnoses:: I have reviewed the clinical and operative findings and procedure performed and progress with the patient and her sister. Patient is is reporting that her knee feels slightly better than prior to surgery. Continue IV vancomycin and oral rifampin as patient has MRSA positive septic arthritis right knee. Recommend up to 6 weeks of antibiotics as there is bone involvement with the infective process. Placement of a PICC line would be beneficial for this. Recommend follow-up response with regular serial WBC count, ESR and CRP. I would change the wound dressings tomorrow and if patient is doing well and the wound appears healthy potentially she could be discharged back to the senior care tomorrow. I have discussed regarding this with Dr. Best. Continue knee immobilizer and nonweightbearing status on the right side. I do not foresee patient weightbearing on the right side without pain unless further surgery like an arthrodesis is performed. I have explained the same to the family. However, any further reconstructive surgery is risky given her age, comorbidities and an infected knee. Recommend dietitian consult to improve her nutritional status. Continue medical management as per Dr. Best.
[2018-11-30 06:56] LABS: Basophils % 0.4 % (0.1-2.0); Eosinophils % 0.8 % (0.1-12.0); Hematocrit 28.3 % (37.0-47.0); Lymphocytes # 1.4 K/mm3 (0.7-4.5); Lymphocytes % 24.6 % (10-50); Mean Corpuscular HGB Conc 31.6 g/dL (31.8-35.4); Mean Corpuscular Hemoglobin 27.7 pg (27.0-31.2); Mean Corpuscular Volume 87.4 fl (81-99); Mean Platelet Volume 7.2 fl (7.4-10.4); Monocytes # 0.5 K/mm3 (0.1-1.0); Monocytes % 8.3 % (1.7-9.3); Neutrophils # 3.8 K/mm3 (1.8-7.8); Platelet Count 442 K/mm3 (142-424); Red Blood Count 3.24 M/mm3 (4.20-5.40); Red Cell Distribution Width 18.6 % (11.5-17.5); White Blood Count 5.8 K/mm3 (4.8-10.8)
[2018-11-30 07:10] LABS: Anion Gap 7.6 mEq/L (5-15); Calcium 8.9 mg/dL (8.5-10.1)
[2018-11-30 07:35] LABS: Potassium 2.6 mmoL/L (3.5-5.1)
--- NOTE | 2018-11-30 08:41 | Progress Note ---
<Nisha Jacinto - Last Filed: 11/30/18 08:38> Internal Medicine - PN: Subj *Date: 11/30/18 *Time: 08:39 Interval history: Patient states she did not rest well last night due to pain in her right leg and her back. Little this morning and her family member states she did vomit after trying to eat some food. Exam Vital signs and Labs for Last 24 Hours: Temp Pulse Resp BP Pulse Ox 98.4 F 96 H 18 143/86 H 97 11/30/18 07:34 11/30/18 07:34 11/30/18 07:34 11/30/18 07:34 11/30/18 07:34 Laboratory Results - last 24 hr 11/30/18 06:38: WBC 5.8, RBC 3.24 L, Hgb 9.0 L, Hct 28.3 L, MCV 87.4, MCH 27.7, MCHC 31.6 L, RDW 18.6 H, Plt Count 442 H, MPV 7.2 L, Neut % (Auto) 66.0, Lymph % (Auto) 24.6, [place] % (Auto) 8.3, Eos % (Auto) 0.8, Baso % (Auto) 0.4, Neut # (Auto) 3.8, Lymph # (Auto) 1.4, [place] # (Auto) 0.5, Eos # (Auto) 0.0, Baso # (Auto) 0.0 11/30/18 06:38: Sodium 138, Potassium 2.6 L*, Chloride 102, Carbon Dioxide 31, Anion Gap 7.6, BUN 8, Creatinine 0.70, Estimated Creat Clear 57, Estimated GFR 81, Est GFR ( Amer) 98, Glucose 113 H, Calcium 8.9 11/30/18 06:38: ESR > 120 H 11/30/18 06:38: C-Reactive Protein 18.6 H I & O for Last 24 hours: Intake & Output 11/27/18 11/28/18 11/29/18 11/30/18 11:59 11:59 11:59 11:59 Intake Total 1536 / 1536 2484 / 2484 3800 / 3800 1905 / 1905 Output Total 2600 / 2600 3700 / 3700 6200 / 6200 4500 / 4500 Balance -1064 / -1064 -1216 / -1216 -2400 / -2400 -2595 / -2595 Weight 194 lb 0.285 oz 194 lb 0.285 oz 195 lb 1 oz 173 lb Microbiology Reports for the Last 24 Hours: Microbiology 11/24/18 15:30 Knee,Right - Aspirate - Final 11/24/18 15:30 Knee,Right - Aspirate Acid Fast Bacilli Smear - Final 11/28/18 10:44 Aspirate - Right Gram Stain - Final 11/28/18 10:44 Aspirate - Right Body Fluid Culture - Preliminary 11/28/18 10:44 Knee,Right - Other Gram Stain - Final 11/28/18 10:44 Knee,Right - Other Surgical Biopsy Culture - Preliminary NO GROWTH AFTER 24 HOURS - Constitutional no acute distress - *Routine Respiratory Exam Present: rhonchi. Absent: rales - *Routine Cardiovascular Exam Present: RRR - *Routine Abdominal Exam Present: soft, normoactive bowel sounds. Absent: tenderness - *Routine Extremities Exam Present: edema (worsening edema of the RLE, right knee in immobilizer) Assessment and Plan (1) HCAP (healthcare-associated pneumonia) Current visit: Yes Status: Acute Category: Medical Code(s): J18.9 - Pneumonia, unspecified organism (2) Iron deficiency anemia Current visit: Yes Status: Acute Category: Medical Code(s): D50.9 - Iron deficiency anemia, unspecified (3) Elevated d-dimer Current visit: Yes Status: Acute Category: Medical Code(s): R79.89 - Other specified abnormal findings of blood chemistry (4) History of CVA (cerebrovascular accident) Current visit: Yes Status: Chronic Category: Medical Code(s): Z86.73 - Personal history of transient ischemic attack (TIA), and cerebral infarction without residual deficits (5) Type 2 diabetes mellitus Current visit: Yes Status: Chronic Category: Medical Code(s): E11.9 - Type 2 diabetes mellitus without complications (6) Hyperlipidemia Current visit: Yes Status: Chronic Category: Medical Code(s): E78.5 - Hyperlipidemia, unspecified (7) History of encephalopathy Current visit: Yes Status: Chronic Category: Medical Code(s): Z86.69 - Personal history of other diseases of the nervous system and sense organs (8) Spinal stenosis Current visit: Yes Status: Chronic Category: Medical Code(s): M48.00 - Spinal stenosis, site unspecified (9) Factor 5 Leiden mutation, heterozygous Current visit: Yes Status: Chronic Category: Medical Code(s): D68.51 - Activated protein C resistance (10) Obstructive sleep apnea Current visit: Yes Status: Chronic Category: Medical Code(s): G47.33 - Obstructive sleep apnea (adult) (pediatric) (11) Osteoporosis Current visit: Yes Status: Chronic Category: Medical Code(s): M81.0 - Age- related osteoporosis without current pathological fracture (12) Dementia Current visit: Yes Status: Chronic Category: Medical Code(s): F03.90 - Unspecified dementia without behavioral disturbance (13) Hypothyroidism Current visit: Yes Status: Acute Category: Medical Code(s): E03.9 - Hypothyroidism, unspecified (14) Septic arthritis of knee, right Start date: 11/26/18 (due to MRSA) Current visit: Yes Status: Acute Category: Medical Code(s): M00.9 - Pyogenic arthritis, unspecified (15) MRSA infection Current visit: Yes Status: Acute Category: Medical Code(s): A49.02 - Methicillin resistant Staphylococcus aureus infection, unspecified site (16) Hypokalemia Current visit: Yes Status: Acute Category: Medical Code(s): E87.6 - Hypokalemia - Assessment and plan all Dx Assessment and Plan for all problems:: Patient does have a bed at [facility], however Dr. Slater is to see the patient today and change her dressing before she is to be discharged. Her potassium is lower today even with an increase in her oral dose yesterda, therefore will give her a run of IV potassium. <Agueda Ellsworth - Last Filed: 11/30/18 09:20> Exam Vital signs and Labs for Last 24 Hours: Temp Pulse Resp BP Pulse Ox 98.4 F 96 H 18 143/86 H 97 11/30/18 07:34 11/30/18 07:34 11/30/18 07:34 11/30/18 07:34 11/30/18 07:34 Laboratory Results - last 24 hr 11/30/18 06:38: WBC 5.8, RBC 3.24 L, Hgb 9.0 L, Hct 28.3 L, MCV 87.4, MCH 27.7, MCHC 31.6 L, RDW 18.6 H, Plt Count 442 H, MPV 7.2 L, Neut % (Auto) 66.0, Lymph % (Auto) 24.6, [place] % (Auto) 8.3, Eos % (Auto) 0.8, Baso % (Auto) 0.4, Neut # (Auto) 3.8, Lymph # (Auto) 1.4, [place] # (Auto) 0.5, Eos # (Auto) 0.0, Baso # (Auto) 0.0 11/30/18 06:38: Sodium 138, Potassium 2.6 L*, Chloride 102, Carbon Dioxide 31, Anion Gap 7.6, BUN 8, Creatinine 0.70, Estimated Creat Clear 57, Estimated GFR 81, Est GFR ( Amer) 98, Glucose 113 H, Calcium 8.9 11/30/18 06:38: ESR > 120 H 11/30/18 06:38: C-Reactive Protein 18.6 H I & O for Last 24 hours: Intake & Output 11/27/18 11/28/18 11/29/18 11/30/18 11:59 11:59 11:59 11:59 Intake Total 1536 / 1536 2484 / 2484 3800 / 3800 1905 / 1905 Output Total 2600 / 2600 3700 / 3700 6200 / 6200 4500 / 4500 Balance -1064 / -1064 -1216 / -1216 -2400 / -2400 -2595 / -2595 Weight 194 lb 0.285 oz 194 lb 0.285 oz 195 lb 1 oz 173 lb Microbiology Reports for the Last 24 Hours: Microbiology 11/24/18 15:30 Knee,Right - Aspirate - Final 11/24/18 15:30 Knee,Right - Aspirate Acid Fast Bacilli Smear - Final 11/28/18 10:44 Aspirate - Right Gram Stain - Final 11/28/18 10:44 Aspirate - Right Body Fluid Culture - Preliminary 11/28/18 10:44 Knee,Right - Other Gram Stain - Final 11/28/18 10:44 Knee,Right - Other Surgical Biopsy Culture - Preliminary NO GROWTH AFTER 24 HOURS Assessment and Plan (1) HCAP (healthcare-associated pneumonia) Current visit: Yes Status: Acute Category: Medical Code(s): J18.9 - Pneumonia, unspecified organism (2) Iron deficiency anemia Current visit: Yes Status: Acute Category: Medical Code(s): D50.9 - Iron deficiency anemia, unspecified (3) Elevated d-dimer Current visit: Yes Status: Acute Category: Medical Code(s): R79.89 - Other specified abnormal findings of blood chemistry (4) History of CVA (cerebrovascular accident) Current visit: Yes Status: Chronic Category: Medical Code(s): Z86.73 - Personal history of transient ischemic attack (TIA), and cerebral infarction without residual deficits (5) Type 2 diabetes mellitus Current visit: Yes Status: Chronic Category: Medical Code(s): E11.9 - Type 2 diabetes mellitus without complications (6) Hyperlipidemia Current visit: Yes Status: Chronic Category: Medical Code(s): E78.5 - Hyperlipidemia, unspecified (7) History of encephalopathy Current visit: Yes Status: Chronic Category: Medical Code(s): Z86.69 - Personal history of other diseases of the nervous system and sense organs (8) Spinal stenosis Current visit: Yes Status: Chronic Category: Medical Code(s): M48.00 - Spinal stenosis, site unspecified (9) Factor 5 Leiden mutation, heterozygous Current visit: Yes Status: Chronic Category: Medical Code(s): D68.51 - Activated protein C resistance (10) Obstructive sleep apnea Current visit: Yes Status: Chronic Category: Medical Code(s): G47.33 - Obstructive sleep apnea (adult) (pediatric) (11) Osteoporosis Current visit: Yes Status: Chronic Category: Medical Code(s): M81.0 - Age- related osteoporosis without current pathological fracture (12) Dementia Current visit: Yes Status: Chronic Category: Medical Code(s): F03.90 - Unspecified dementia without behavioral disturbance (13) Hypothyroidism Current visit: Yes Status: Acute Category: Medical Code(s): E03.9 - Hypothyroidism, unspecified (14) Septic arthritis of knee, right Start date: 11/26/18 (due to MRSA) Current visit: Yes Status: Acute Category: Medical Code(s): M00.9 - Pyogenic arthritis, unspecified (15) MRSA infection Current visit: Yes Status: Acute Category: Medical Code(s): A49.02 - Methicillin resistant Staphylococcus aureus infection, unspecified site (16) Hypokalemia Current visit: Yes Status: Acute Category: Medical Code(s): E87.6 - Hypokalemia - Assessment and plan all Dx Assessment and Plan for all problems:: After replacing potassium, pt will be discharged to [facility] today with IV vanc and Po rifampin. Dr. Slater is on board and wants to see her in 1 week for dressing change. Will start her on coumadin for DVT/PE prophylaxis as patient is sedentary. Will start megace for appetite.
--- NOTE | 2018-11-30 09:18 | Discharge Summary ---
General - General Admission date:: 11/22/18 Discharge date: 11/30/18 HPI HPI: Ms. Lang is a 77yo female who just recently moved from a nursing Center in [place] to [facility] to be closer to family members. She had several hospitalizations in the Fall of 2017 after suffering a fall and a possible stroke and then began residing in the long-term. The patient is currently in a respite bed at [facility] awaiting a skilled bed. She was seen by Nanette Hanna at the long-term on 11/20/18. The patient had been running a low-grade fever, therefore labs, a U/A, and a chest x-ray were ordered. Her CBC showed a hemoglobin of 7.0 and a hematocrit of 22.5. Her BUN and creatinine were normal. She had a UA showing turbid urine with blood present but the culture was normal. A blood transfusion was ordered on an outpatient basis and the patient had a repeat H&H done at the time of blood typing showing a hemoglobin of 8.6 and hematocrit of 28.1. Her iron was low at 12 therefore iron supplementation was ordered. She presented to the infusion lab today to receive the blood, at which time her chest x-ray came back showing a left perihilar and right superior perihilar pneumonia. She has continued with fever, decreased sonny etite, has developed a cough and did feel poorly, therefore Dr. Best directly admitted her for treatment of her pneumonia and anemia. Of note she has had some recent swelling and pain in her entire right leg. 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 A Doppler will be ordered of the right leg. Hospital Course Hospital Course: The patient was directly admitted. Her d-dimer was elevated but her venous Doppler was negative for DVT. A CTA was ordered to rule out a PE. She did continue with her blood transfusion and was placed on oxygen due to sats in the low 90s and some shortness of breath. Her CTA showed no evidence of PE but did show a patchy density in the right upper lobe and left upper lobe. She was started on antibiotics for the pneumonia. X-rays were ordered of her right leg due to pain and swelling. The x-rays showed some erosion of the right knee joint with concern for a septic arthritis, therefore Dr. Slater was consulted. Her H&H did improve with transfusion. Dr. Slater saw the patient and recommended aspiration of the right knee for further evaluation. He recommended continuation of conservative management until the culture returned. Her H&H remained stable but her TSH was found to be elevated, therefore she was started on thyroid replacement. Her pneumonia did improve. A diarrhea panel was ordered by the nursing staff and was negative. She was started on Aricept for some dementia and due to the potential interaction with Zithromax, this was discontinued and Rocephin was continued pending cultures. The culture from the knee aspiration grew MRSA, which indicated a septic arthritis in her right knee. Dr. Slater felt this would involve prolonged IV and oral antibiotics for approximately 6 weeks or so as well as an arthroscopic/open debridement and washout of the right knee. The family was in agreement and the patient was started on IV vancomycin and rifampin. She was on anticoagulation with xarelto and Dr. Best recommended holding it for 3 days for surgical intervention. The patient's potassium was low, therefore she was started on potassium supplementation. Dr. Slater did order an MRI of the knee. The knee MRI showed extensive erosive changes at the joint with destructive fragmentation changes. There was an enlarged suprapatellar bursa and marketed synovial thickening with small pockets of fluid throughout the knee. An ACL tear was also noted. Dr. Slater performed an arthroscopic debridement and washout of the right knee on 11/28/18 and placed antibiotic beads. The patient tolerated the procedure well but continued to have swelling of the right leg. She was nauseated and unable to eat well. Megace was ordered to increase appetite. The patient's potassium decreased and she had to receive IV potassium as well as oral potassium. Dr. Slater did feel she could be discharged to [facility] with a PICC line for 6 weeks of antibiotics. She will need to continue the knee immobilizer and remain nonweightbearing on the right side. She will need a CBC and CMP in 1 week to assess her H&H and potassium. She will f/u with Dr. Slater and Dr. Best. Objective Vital signs: Temp Pulse Resp BP Pulse Ox 98.4 F 96 H 18 143/86 H 97 11/30/18 07:34 11/30/18 07:34 11/30/18 07:34 11/30/18 07:34 11/30/18 07:34 Narrative: - Constitutional Comments: Patient does not appear to feel well - *Routine HEENT Exam Head: Present: normocephalic, atraumatic Eye: Present: EOMI, PERRL ENT: Present: mucous membranes dry - *Routine Neck Exam Present: supple. Absent: lymphadenopathy - *Routine Respiratory Exam Present: rales (left mid back and base). Absent: wheezes - *Routine Cardiovascular Exam Present: RRR - *Routine Abdominal Exam Present: soft, normoactive bowel sounds. Absent: tenderness - *Routine Extremities Exam Present: edema (right lower leg, the knee and ca are swollen and very ttp, patient is unable to move that leg d/t pain) - *Routine Skin Exam Present: pallor. Absent: rash - *Routine Neurological Exam Present: motor deficit, altered mental status (mildly confused but can answer questions) Results Labs on day of discharge: Labs from last 24 hours 11/30/18 11/30/18 11/30/18 06:38 06:38 06:38 WBC RBC Hgb Hct MCV MCH MCHC RDW Plt Count MPV Neut % (Auto) Lymph % (Auto) Sandoval % (Auto) Eos % (Auto) Baso % (Auto) Neut # (Auto) Lymph # (Auto) Sandoval # (Auto) Eos # (Auto) Baso # (Auto) ESR > 120 H Sodium 138 Potassium 2.6 L* Chloride 102 Carbon Dioxide 31 Anion Gap 7.6 BUN 8 Creatinine 0.70 Estimated Creat Clear 57 Estimated GFR 81 Est GFR ( Amer) 98 Glucose 113 H Calcium 8.9 C-Reactive Protein 18.6 H 11/30/18 06:38 WBC 5.8 RBC 3.24 L Hgb 9.0 L Hct 28.3 L MCV 87.4 MCH 27.7 MCHC 31.6 L RDW 18.6 H Plt Count 442 H MPV 7.2 L Neut % (Auto) 66.0 Lymph % (Auto) 24.6 Sandoval % (Auto) 8.3 Eos % (Auto) 0.8 Baso % (Auto) 0.4 Neut # (Auto) 3.8 Lymph # (Auto) 1.4 Sandoval # (Auto) 0.5 Eos # (Auto) 0.0 Baso # (Auto) 0.0 ESR Sodium Potassium Chloride Carbon Dioxide Anion Gap BUN Creatinine Estimated Creat Clear Estimated GFR Est GFR ( Amer) Glucose Calcium C-Reactive Protein Preliminary micro results at discharge 11/28/18 10:44 Body Fluid Culture - Preliminary Aspirate - Right 11/28/18 10:44 Surgical Biopsy Culture - Preliminary Knee,Right - Other NO GROWTH AFTER 24 HOURS DS: Diagnosis - Discharge Diagnosis (1) HCAP (healthcare-associated pneumonia) Status: Acute (2) Iron deficiency anemia Status: Acute (3) Elevated d-dimer Status: Acute (4) History of CVA (cerebrovascular accident) Status: Chronic (5) Type 2 diabetes mellitus Status: Chronic (6) Hyperlipidemia Status: Chronic (7) History of encephalopathy Status: Chronic (8) Spinal stenosis Status: Chronic (9) Factor 5 Leiden mutation, heterozygous Status: Chronic (10) Obstructive sleep apnea Status: Chronic (11) Osteoporosis Status: Chronic (12) Dementia Status: Chronic (13) Hypothyroidism Status: Acute (14) Septic arthritis of knee, right Status: Acute (15) MRSA infection Status: Acute (16) Hypokalemia Status: Acute Discharge Plan - Patient Discharge Instructions Patient Instructions: Pneumonia-Adult, Methicillin-Resistant Staph Infection, Anemia, DI for Pneumonia -- Adult, DI for Septic Arthritis, Peripherally Inserted Central Catheter, DI for Surgical Site Infection, Peripherally Inserted Central Catheter Infections - Follow up Plan Follow up with: Dayo Slater MD [Staff Physician] - 1 week Disposition: [facility] Home Medications: Home Medications Medication Instructions Recorded Confirmed Type Acetaminophen [Tylenol] 650 mg PO Q4HP PRN 11/21/18 11/22/18 History Aspirin [Aspirin 81mg EC Tab] 81 mg PO DAILY 11/21/18 11/22/18 History Atorvastatin Calcium [Atorvastatin 10 mg PO HS 11/21/18 11/22/18 History 10mg Tab] Citalopram Hydrobromide [Celexa 20 mg PO DAILY 11/21/18 11/22/18 History 20mg Tablet] Cyanocobalamin (Vitamin B-12) 1,000 mcg PO DAILY 11/21/18 11/22/18 History [Vitamin B-12] Ferrous Sulfate [Ferrous Sulfate 325 mg PO DAILY 11/21/18 11/22/18 History 325mg Tablet] Hydrocodone/Acetaminophen [[place] 1 tab PO Q4H 11/21/18 11/23/18 History 10-325 Tablet] Magnesium Oxide [Magnesium] 400 mg PO DAILY 11/21/18 11/22/18 History Pantoprazole Sodium [Protonix 40mg 40 mg PO DAILY 11/21/18 11/22/18 History tablet] Pregabalin [Lyrica 100mg Cap] 100 mg PO TID 11/21/18 11/22/18 History Rivaroxaban [Xarelto 20mg Tablet] 20 mg PO HS 11/21/18 11/22/18 History fentaNYL [Duragesic] 50 mcg TD Q72H 11/21/18 11/23/18 History Ipratropium/Albuterol Sulfate 3 ml IH Q6RT 30 Days ampul.neb 11/30/18 Rx [Duoneb 3mL neb] Levothyroxine Sodium [Synthroid 25 mcg PO DAILYDM #30 tablet 11/30/18 Rx 25mcg (0.025mg) tablet] Megestrol Acetate [Megestrol 40 mg PO DAILY #30 tablet 11/30/18 Rx Acetate 40mg Tablet] Potassium Chloride [Klor-con 20 40 meq PO TID #21 tablet 11/30/18 Rx mEq tablet] Warfarin Sodium [Coumadin 3mg 3 mg PO COUMADIN #30 tablet 11/30/18 Rx tablet] rifAMPin [rifAMPin 300mg Capsule] 600 mg PO DAILY #40 capsule 11/30/18 Rx Prescriptions/Medication Reconciliation: New Donepezil HCl [Aricept 5mg Tablet] 5 mg PO DAILY tablet fentaNYL [fentaNYL 50mcg Patch] 50 mcg TD Q72H patch.td72 Furosemide [Lasix 20mg tablet] 20 mg PO DAILY tablet Vancomycin HCl [Vancomycin 1000mg Vial] 1,500 mg IV Q18H #0 vial Ipratropium/Albuterol Sulfate [Duoneb 3mL neb] 3 ml IH Q6RT 30 Days ampul.neb Levothyroxine Sodium [Synthroid 25mcg (0.025mg) tablet] 25 mcg PO DAILYDM #30 tablet Megestrol Acetate [Megestrol Acetate 40mg Tablet] 40 mg PO DAILY #30 tablet Potassium Chloride [Klor-con 20 mEq tablet] 40 meq PO TID #21 tablet rifAMPin [rifAMPin 300mg Capsule] 600 mg PO DAILY #40 capsule Warfarin Sodium [Coumadin 3mg tablet] 3 mg PO COUMADIN #30 tablet Continue Atorvastatin Calcium [Atorvastatin 10mg Tab] 10 mg PO HS Citalopram Hydrobromide [Celexa 20mg Tablet] 20 mg PO DAILY Pantoprazole Sodium [Protonix 40mg tablet] 40 mg PO DAILY Hydrocodone/Acetaminophen [[place] 10-325 Tablet] 1 tab PO Q4H Ferrous Sulfate [Ferrous Sulfate 325mg Tablet] 325 mg PO DAILY Pregabalin [Lyrica 100mg Cap] 100 mg PO TID Magnesium Oxide [Magnesium] 400 mg PO DAILY fentaNYL [Duragesic] 50 mcg TD Q72H Acetaminophen [Tylenol] 650 mg PO Q4HP PRN PRN Reason: Mild Pain Cyanocobalamin (Vitamin B-12) [Vitamin B-12] 1,000 mcg PO DAILY Discontinued Aspirin [Aspirin 81mg EC Tab] 81 mg PO DAILY Rivaroxaban [Xarelto 20mg Tablet] 20 mg PO HS
--- NOTE | 2018-11-30 09:30 | Progress Note ---
Subjective Date: 11/30/18 Time: 09:00 Principal diagnosis: Septic arthritis, right knee Interval history: Patient is status post arthroscopic debridement and washout right knee post op day #2. Patient is lying down on the bed. She says she is feeling the same as yesterday but reports reports less pain in her right knee. She continues to be nauseated and unable to eat well. Her sister is with her in the room. PN: Obj Ex Vital signs: Temp Pulse Resp BP Pulse Ox 98.4 F 96 H 18 143/86 H 97 11/30/18 07:34 11/30/18 07:34 11/30/18 07:34 11/30/18 07:34 11/30/18 07:34 Narrative: Laboratory Results - last 24 hr 11/30/18 06:38: WBC 5.8, RBC 3.24 L, Hgb 9.0 L, Hct 28.3 L, MCV 87.4, MCH 27.7, MCHC 31.6 L, RDW 18.6 H, Plt Count 442 H, MPV 7.2 L, Neut % (Auto) 66.0, Lymph % (Auto) 24.6, Whitman % (Auto) 8.3, Eos % (Auto) 0.8, Baso % (Auto) 0.4, Neut # (Auto) 3.8, Lymph # (Auto) 1.4, Whitman # (Auto) 0.5, Eos # (Auto) 0.0, Baso # (Auto) 0.0 11/30/18 06:38: Sodium 138, Potassium 2.6 L*, Chloride 102, Carbon Dioxide 31, Anion Gap 7.6, BUN 8, Creatinine 0.70, Estimated Creat Clear 57, Estimated GFR 81, Est GFR ( Amer) 98, Glucose 113 H, Calcium 8.9 11/30/18 06:38: ESR > 120 H 11/30/18 06:38: C-Reactive Protein 18.6 H Microbiology 11/24/18 15:30 Knee,Right - Aspirate - Final 11/24/18 15:30 Knee,Right - Aspirate Acid Fast Bacilli Smear - Final 11/28/18 10:44 Aspirate - Right Gram Stain - Final 11/28/18 10:44 Aspirate - Right Body Fluid Culture - Preliminary 11/28/18 10:44 Knee,Right - Other Gram Stain - Final 11/28/18 10:44 Knee,Right - Other Surgical Biopsy Culture - Preliminary NO GROWTH AFTER 24 HOURS Exam General appearance: alert, active, awake, no acute distress Cardiovascular: regular rate & rhythm, normal peripheral pulses Respiratory: No respiratory distress noted, speaks in full sentences ABD: soft and non tender Genitourinary: Catheter in situ. On examination of the right knee, the dressings are clean, and intact. I have changed the dressings today. There is some soaking of the surgical dressings with dried blood. No active bleeding noted at this time. The portals are healthy. There is 1+ knee effusion. Sterile dressings were reapplied. She is in a knee immobilizer. There is 2+ edema of the lower leg and foot and ankle. Distal pulses are 1+. Distal sensation is intact to light touch throughout. She is actively wiggling the foot and toes. - Urinary Catheter Management Ribeiro Cath placed during this visit: yes Urethral indwelling: Yes Reason for continuing: Surgical procedure Insertion date: 11/26/18 Insertion time: 18:20 Progress Note: A&P (1) HCAP (healthcare-associated pneumonia) Status: Acute Current Visit: Yes (2) Iron deficiency anemia Status: Acute Current Visit: Yes (3) Elevated d-dimer Status: Acute Current Visit: Yes (4) History of CVA (cerebrovascular accident) Status: Chronic Current Visit: Yes (5) Type 2 diabetes mellitus Status: Chronic Current Visit: Yes (6) Hyperlipidemia Status: Chronic Current Visit: Yes (7) History of encephalopathy Status: Chronic Current Visit: Yes (8) Spinal stenosis Status: Chronic Current Visit: Yes (9) Factor 5 Leiden mutation, heterozygous Status: Chronic Current Visit: Yes (10) Obstructive sleep apnea Status: Chronic Current Visit: Yes (11) Osteoporosis Status: Chronic Current Visit: Yes (12) Dementia Status: Chronic Current Visit: Yes (13) Hypothyroidism Status: Acute Current Visit: Yes (14) Septic arthritis of knee, right Status: Acute Current Visit: Yes (15) MRSA infection Status: Acute Current Visit: Yes (16) Hypokalemia Status: Acute Current Visit: Yes Assessment and Plan for All Diagnoses:: I have reviewed the clinical findings and progress with the patient and her sister. Patient is is reporting that her knee continues to feel better than it was prior to surgery. I have changed the dressings today and the portals are looking healthy. From an orthopedic standpoint, patient can be discharged back to the detention. Continue IV vancomycin and oral rifampin as patient has MRSA positive septic arthritis right knee. Recommend 6 weeks of antibiotics as there is bone involvement with the infective process. Recommend follow-up to monitor the response with serial WBC count, ESR and CRP. I have discussed regarding this with Dr. Ellsworth. Continue knee immobilizer and nonweightbearing status on the right side. Follow-up in my office in 1 weeks time with check x- ray, CBC, ESR and CRP. Please feel free to call our office at [phone] for any orthopaedic questions. Continue medical management as per Dr. Best/Dr. Ellsworth.
[2018-11-30 10:47] LABS: INR 1.49 (0.9-1.1); Prothrombin Time 15.2 seconds (9.4-11.8)
[2018-11-30 13:05] LABS: Calcium 8.5 mg/dL (8.5-10.1)
== END 2018-11-30 15:55 | DRG 988 ==
LOC: INF 08:58 → 2ND 11:56
PROVIDERS: ADMIT Family Medicine; ATTEND Family Medicine
CPT/HCPCS: 20610; 36415; 36430; 36569; 71010; 71045; 71275; 73223; 73502; 73560; 73590; 73600; 73620; 73723; 77002; 80048; 80053; 80202; 81001; 82962; 83036; 84443; 84484; 85014; 85018; 85025; 85378; 85610; 85651; 85730; 86140; 86431; 86738; 86850; 86870; 87040; 87070; 87077; 87086; 87116; 87186; 87205; 87206; 87275; 87276; 87506; 93005; 93306; 93970; 94640; 94761; A4649; A9576; J0456; J2405; J3370; P9016; Q9966

== ENCOUNTER → 2018-12-03 20:00 | Outpatient (CLI) | payer MEDICARE, SELFPAY ==
[2018-12-03 22:50] LABS: Vancomycin,Trough 24.3 mcg/ml (10.0-20.0)
== END ==
PROVIDERS: Visit Provider Family Medicine
DX: Z51.81 Encounter for therapeutic drug level monitoring (principal); A49.02 Methicillin resistant Staphylococcus aureus infection, unspecified site; M25.561 Pain in right knee
CPT/HCPCS: 80202

== ENCOUNTER → 2018-12-06 12:24 | Outpatient (CLI) | payer MEDICARE, SELFPAY ==
--- NOTE | 2018-12-06 12:30 | XR_ITS ---
XR knee RT 2V HISTORY: Follow-up septic joint ITS.REASON: ap lateral non weightbearing ORDERING PHYSICIAN: Dayo Slater MD PATIENT AGE: 78 years COMPARISON: 11/23/2018 FINDINGS: AP and lateral views are obtained and once again show destructive process involving the distal femur and proximal tibia greater along the medial compartment. There is mild lateral tibial subluxation. Periarticular calcification also noted. There was some anterior subluxation of the femur previously which is not present on today's exam. Increased soft tissue density once again noted in the suprapatellar region. The cortical irregularity of the distal femur appears somewhat improved. IMPRESSION: Overall no significant change to some slight improvement in the appearance of the destructive process of the right knee joint. There remains increased soft tissue density in the suprapatellar region not significant changed
[2018-12-06 13:33] LABS: C-Reactive Protein 11.9 mg/L (0.0-0.9)
[2018-12-07 15:37] LABS: Erythrocyte Sedimentation Rate > 120 mm/hr (0-30)
== END ==
PROVIDERS: PCP Family Medicine; Visit Provider Orthopaedic Surgery
DX: M00.9 Pyogenic arthritis, unspecified (principal); Z47.89 Encounter for other orthopedic aftercare
CPT/HCPCS: 73560; 85651; 86140

== ENCOUNTER 2018-12-13 12:25 | Outpatient (CLI) | payer MEDICARE, MEDICAID, SELFPAY ==
[2018-12-13 12:34] VITALS: BMI 24.3
--- NOTE | 2018-12-13 12:59 | XR_ITS ---
XR knee RT 2V HISTORY: Follow-up septic arthritis ITS.REASON: ap lateral non weightbearing ORDERING PHYSICIAN: Dayo Slater MD PATIENT AGE: 78 years COMPARISON: 12/06/2018 FINDINGS: Destructive changes once again noted involving the knee joint greater along the medial compartment. Fragmentation is present at the articular margins similar to the previous exam. There is minimal lateral subluxation of the tibia. Increased soft tissue density once again noted in the suprapatellar region. IMPRESSION: Overall no change in the destructive appearance of the knee joint with bony fragmentation and mild subluxation
[2018-12-13 13:04] LABS: Basophils % 0.4 % (0.1-2.0); Eosinophils # 0.2 K/mm3 (0.0-0.4); Eosinophils % 4.3 % (0.1-12.0); Hematocrit 32.5 % (37.0-47.0); Hemoglobin 10.1 g/dL (12.2-16.2); Lymphocytes # 1.4 K/mm3 (0.7-4.5); Lymphocytes % 26.5 % (10-50); Mean Corpuscular Hemoglobin 28.9 pg (27.0-31.2); Mean Corpuscular Volume 93.1 fl (81-99); Mean Platelet Volume 7.3 fl (7.4-10.4); Monocytes # 0.2 K/mm3 (0.1-1.0); Monocytes % 3.8 % (1.7-9.3); Neutrophils # 3.3 K/mm3 (1.8-7.8); Platelet Count 394 K/mm3 (142-424); Red Blood Count 3.49 M/mm3 (4.20-5.40); Red Cell Distribution Width 19.8 % (11.5-17.5); White Blood Count 5.1 K/mm3 (4.8-10.8)
--- NOTE | 2018-12-13 13:05 | PC.NURSE ---
1245-pt arrived in infusion for lab draw. Attempted to access PICC flushed easily ,no blood return. Accesed blood using butterfly in left ac. Pt toletated well. Applied 2x2s and coban to site. Lab blood tubes taken to lab.
[2018-12-13 13:22] LABS: C-Reactive Protein 9.6 mg/L (0.0-0.9)
[2018-12-13 13:52] LABS: Erythrocyte Sedimentation Rate > 120 mm/hr (0-30)
== END 2018-12-13 13:05 | disposition home or self-care (01) ==
LOC: INF 12:28
PROVIDERS: PCP Family Medicine; Visit Provider Orthopaedic Surgery
DX: M00.9 Pyogenic arthritis, unspecified (principal)
CPT/HCPCS: 73560; 85025; 85651; 86140

== ENCOUNTER → 2018-12-31 10:06 | Outpatient (CLI) | payer MEDICARE, MEDICAID, SELFPAY ==
[2018-12-31 12:19] VITALS: BMI 24.0
--- NOTE | 2018-12-31 12:20 | XR_ITS ---
XR chest portable PICC plac HISTORY: ITS.REASON: PICC line placement ORDERING PHYSICIAN: Mustapha Best MD PATIENT AGE: 78 years COMPARISON: 12/30/2018 FINDINGS: Right upper extremity PICC line has been inserted. The tip is in region of the superior vena cava dislocation. There is mild cardiomegaly without failure. Lungs are clear bilaterally. There are degenerative changes of the shoulders and AC joints IMPRESSION: Good placement of PICC line. FINDINGS called to Jace on 12/31/2018 1:05 PM.
== END ==
PROVIDERS: PCP Family Medicine; Visit Provider Family Medicine
DX: Z45.2 Encounter for adjustment and management of vascular access device (principal)
CPT/HCPCS: 36569; 71045; C1751

== ENCOUNTER → 2019-01-10 12:13 | Outpatient (CLI) | payer MEDICARE, MEDICAID, SELFPAY ==
--- NOTE | 2019-01-10 12:38 | XR_ITS ---
XR knee RT 2V Ordering Physician: Dayo Slater MD Patient Age: 78 years: Female HISTORY: ITS.REASON: sp RT knee washout dos 11/28/18 septic joint But due to chronic inflammation or infection TECHNIQUE: 3 views right knee COMPARISON : 12/27/2018 right knee 12/13/2018 right knee November 2018 right knee MRI FINDINGS We again see a similar pattern to previous exam with no prominent change since prior plain films.. . Again the destructive erosive changes at the knee are evident with shaggy irregularity of the margins at the region of eroded articular surface. Destruction or erosion most evident at medial compartment more so the lateral compartment on plain film.. Fragmentation and ill-defined bone through these regions. Lateral view shows relative flattening or concavity of the femoral condyle due to the erosive change. This matches a previous MRI findings as well. . There does seem to be slight additional wispy bone along the medial femoral condyle which could reflect some developing attempted healing bone or periosteal reaction . The minimal density/bone formation overlying lateral femoral condyle again noted and similar to previous study with similar considerations.. IMPRESSION: Overall no appreciable or significant change in the destructive erosive pattern of the right knee joint itself. Again the destructive erosive changes at the articular margins along with fragmentation of bone here again noted. . Question some subtle wispy density developing along the medial femoral condyle since prior studies which may reflect some attempted healing features possibly
[2019-01-10 12:45] LABS: Basophils % 0.4 % (0.1-2.0); Eosinophils # 0.2 K/mm3 (0.0-0.4); Eosinophils % 6.3 % (0.1-12.0); Hematocrit 35.4 % (37.0-47.0); Hemoglobin 11.1 g/dL (12.2-16.2); Lymphocytes # 1.2 K/mm3 (0.7-4.5); Lymphocytes % 32.9 % (10-50); Mean Corpuscular HGB Conc 31.2 g/dL (31.8-35.4); Mean Corpuscular Hemoglobin 31.1 pg (27.0-31.2); Mean Corpuscular Volume 99.6 fl (81-99); Monocytes # 0.2 K/mm3 (0.1-1.0); Neutrophils % 54.4 % (37.0-80.0); Platelet Count 214 K/mm3 (142-424); Red Blood Count 3.56 M/mm3 (4.20-5.40); Red Cell Distribution Width 17.8 % (11.5-17.5); White Blood Count 3.6 K/mm3 (4.8-10.8)
[2019-01-10 13:28] LABS: Erythrocyte Sedimentation Rate 64 mm/hr (0-30)
[2019-01-10 14:01] LABS: Alanine Aminotransferase 11 U/L (12-78); Albumin Level 2.1 gm/dL (3.4-5.0); Albumin/Globulin Ratio 0.5 (1.1-1.8); Alkaline Phosphatase 82 U/L (46-116); Aspartate Amino Transferase 12 U/L (15-37); Bilirubin,Total 0.2 mg/dL (0.2-1.0); Blood Urea Nitrogen 15 mg/dL (7-18); Calcium 8.1 mg/dL (8.5-10.1); Carbon Dioxide 31 mmol/L (21.0-32.0); Chloride 106 mmol/L (98-107); Creatinine,Serum 0.93 mg/dL (0.55-1.02); Estimated Glomerular Filt Rate 58 ml/min (>60); GFR (African American) 71 ML/MIN (>60); Globulin 4.5 gm/dl (1.3-3.2); Glucose 130 mg/dL (74-106); Sodium 143 mmol/L (136-145); Total Protein,Serum 6.6 gm/dL (6.4-8.2)
--- NOTE | 2019-01-10 15:45 | HMH.PHAINT ---
VERIFIED WITH DR KERN THAT PATIENT DOES NOT HAVE OSTEOMYELITIS AND EVEN THOUGH PATIENT IS ON WARFARIN, MD WANTS HER TO HAVE ORBACTIV AND HE WILL NOT ORDER AND INR FOR SEVERAL WEEKS.
== END ==
PROVIDERS: PCP Family Medicine; Visit Provider Orthopaedic Surgery
DX: M00.9 Pyogenic arthritis, unspecified (principal); Z47.89 Encounter for other orthopedic aftercare
CPT/HCPCS: 36415; 73560; 80053; 85025; 85651; 86140

== ENCOUNTER 2019-01-11 11:15 | Outpatient (CLI) | payer MEDICARE, SELFPAY ==
[2019-01-11] VITALS (7 sets, daily range): BP systolic 118–138; BP diastolic 62–106; PULSE 68–78; RESP 20; TEMP 36.9; O2SAT 95
== END 2019-01-11 16:49 | disposition home or self-care (01) ==
LOC: INF 11:27
PROVIDERS: Visit Provider Family Medicine
DX: M00.061 Staphylococcal arthritis, right knee (principal); Z22.322 Carrier or suspected carrier of Methicillin resistant Staphylococcus aureus
CPT/HCPCS: 96365; 96366; J2407

== ENCOUNTER → 2019-01-24 12:34 | Outpatient (CLI) | payer MEDICARE, MEDICAID, SELFPAY ==
--- NOTE | 2019-01-24 12:55 | XR_ITS ---
XR knee RT 2V HISTORY: Follow-up osteomyelitis and septic joint ITS.REASON: sp RT knee washout, DOS 11/28/18 ORDERING PHYSICIAN: Dayo Slater MD PATIENT AGE: 78 years COMPARISON: 01/10/2019 FINDINGS: Diffuse cortical regularity once again noted at the medial lateral compartment of the knee. Bony destructive process is not significantly changed and may be slightly improved slight increased density along the medial compartment. Bony fragmentation once again noted.. IMPRESSION: Bony destruction fragmentation of the medial lateral compartment once again noted but may be somewhat improved
[2019-01-24 12:59] LABS: Basophils % 0.2 % (0.1-2.0); Eosinophils # 0.2 K/mm3 (0.0-0.4); Eosinophils % 3.4 % (0.1-12.0); Hematocrit 39.3 % (37.0-47.0); Hemoglobin 12.8 g/dL (12.2-16.2); Lymphocytes # 0.8 K/mm3 (0.7-4.5); Lymphocytes % 15.4 % (10-50); Mean Corpuscular HGB Conc 32.5 g/dL (31.8-35.4); Mean Corpuscular Hemoglobin 31.3 pg (27.0-31.2); Mean Corpuscular Volume 96.2 fl (81-99); Mean Platelet Volume 7.7 fl (7.4-10.4); Monocytes # 0.2 K/mm3 (0.1-1.0); Monocytes % 4.3 % (1.7-9.3); Neutrophils % 76.7 % (37.0-80.0); Platelet Count 219 K/mm3 (142-424); Red Blood Count 4.09 M/mm3 (4.20-5.40); Red Cell Distribution Width 16.1 % (11.5-17.5); White Blood Count 5.2 K/mm3 (4.8-10.8)
[2019-01-24 13:38] LABS: Alanine Aminotransferase 13 U/L (12-78); Albumin Level 2.6 gm/dL (3.4-5.0); Albumin/Globulin Ratio 0.5 (1.1-1.8); Alkaline Phosphatase 82 U/L (46-116); Anion Gap 10.2 mEq/L (5-15); Aspartate Amino Transferase 10 U/L (15-37); Bilirubin,Total 0.3 mg/dL (0.2-1.0); Blood Urea Nitrogen 22 mg/dL (7-18); C-Reactive Protein 2.1 mg/L (0.0-0.9); Calcium 8.8 mg/dL (8.5-10.1); Carbon Dioxide 30 mmol/L (21.0-32.0); Chloride 105 mmol/L (98-107); Creatinine,Serum 1.02 mg/dL (0.55-1.02); Estimated Glomerular Filt Rate 52 ml/min (>60); GFR (African American) 63 ML/MIN (>60); Globulin 4.8 gm/dl (1.3-3.2); Glucose 106 mg/dL (74-106); Potassium 4.2 mmoL/L (3.5-5.1); Sodium 141 mmol/L (136-145); Total Protein,Serum 7.4 gm/dL (6.4-8.2)
[2019-01-24 13:41] LABS: Erythrocyte Sedimentation Rate 52 mm/hr (0-30)
== END ==
PROVIDERS: PCP Family Medicine; Visit Provider Orthopaedic Surgery
DX: M00.9 Pyogenic arthritis, unspecified (principal); Z48.89 Encounter for other specified surgical aftercare
CPT/HCPCS: 36415; 73560; 80053; 85025; 85651; 86140

== ENCOUNTER → 2019-02-07 14:28 | Outpatient (CLI) | payer MEDICARE, MEDICAID, SELFPAY ==
[2019-02-07 15:16] LABS: Basophils % 0.4 % (0.1-2.0); Eosinophils # 0.3 K/mm3 (0.0-0.4); Eosinophils % 7.3 % (0.1-12.0); Hematocrit 39.1 % (37.0-47.0); Hemoglobin 12.5 g/dL (12.2-16.2); Lymphocytes # 1.3 K/mm3 (0.7-4.5); Lymphocytes % 31.9 % (10-50); Mean Corpuscular HGB Conc 32.1 g/dL (31.8-35.4); Mean Corpuscular Hemoglobin 31.3 pg (27.0-31.2); Mean Corpuscular Volume 97.5 fl (81-99); Mean Platelet Volume 7.8 fl (7.4-10.4); Monocytes # 0.2 K/mm3 (0.1-1.0); Monocytes % 5.5 % (1.7-9.3); Neutrophils # 2.2 K/mm3 (1.8-7.8); Neutrophils % 54.8 % (37.0-80.0); Platelet Count 167 K/mm3 (142-424); Red Blood Count 4.01 M/mm3 (4.20-5.40); White Blood Count 4.1 K/mm3 (4.8-10.8)
[2019-02-07 16:20] LABS: C-Reactive Protein 2.2 mg/L (0.0-0.9)
[2019-02-07 16:40] LABS: Anion Gap 5.3 mEq/L (5-15); Blood Urea Nitrogen 25 mg/dL (7-18); Carbon Dioxide 33 mmol/L (21.0-32.0); Chloride 105 mmol/L (98-107); Creatinine,Serum 0.95 mg/dL (0.55-1.02); Estimated Glomerular Filt Rate 57 ml/min (>60); GFR (African American) 69 ML/MIN (>60); Glucose 100 mg/dL (74-106); Potassium 4.3 mmoL/L (3.5-5.1); Sodium 143 mmol/L (136-145)
[2019-02-07 16:41] LABS: Alanine Aminotransferase 15 U/L (12-78); Albumin Level 2.7 gm/dL (3.4-5.0); Albumin/Globulin Ratio 0.6 (1.1-1.8); Aspartate Amino Transferase 9 U/L (15-37); Bilirubin,Total 0.3 mg/dL (0.2-1.0); Calcium 8.6 mg/dL (8.5-10.1); Globulin 4.4 gm/dl (1.3-3.2); Total Protein,Serum 7.1 gm/dL (6.4-8.2)
[2019-02-07 16:42] LABS: Alkaline Phosphatase 88 U/L (46-116)
[2019-02-07 16:43] LABS: Erythrocyte Sedimentation Rate 28 mm/hr (0-30)
== END ==
PROVIDERS: PCP Family Medicine; Visit Provider Orthopaedic Surgery
DX: M00.9 Pyogenic arthritis, unspecified (principal)
CPT/HCPCS: 36415; 80053; 85025; 85651; 86140

== ENCOUNTER → 2019-03-07 12:28 | Outpatient (CLI) | payer MEDICARE, MEDICAID, SELFPAY ==
--- NOTE | 2019-03-07 12:42 | XR_ITS ---
XR knee RT 2V HISTORY: Follow-up septic arthritis, pain ITS.REASON: sp RT knee washout dos 11/28/18 ORDERING PHYSICIAN: Dayo Slater MD PATIENT AGE: 78 years COMPARISON: 01/24/2019 FINDINGS Loss of joint space with bony destruction involving the distal femur proximal tibia greater along the medial compartment is once again noted consistent with septic arthritis and osteomyelitis. Changes are stable when compared to the previous exam. There is some periarticular calcification medially. There is mild lateral tibial subluxation. IMPRESSION: Overall no change in the appearance of septic arthritis with osteomyelitis of the knee
[2019-03-07 12:55] LABS: Basophils % 0.4 % (0.1-2.0); Eosinophils # 0.2 K/mm3 (0.0-0.4); Eosinophils % 5.8 % (0.1-12.0); Hematocrit 33.9 % (37.0-47.0); Hemoglobin 11.3 g/dL (12.2-16.2); Lymphocytes # 1.1 K/mm3 (0.7-4.5); Lymphocytes % 27.7 % (10-50); Mean Corpuscular HGB Conc 33.4 g/dL (31.8-35.4); Mean Platelet Volume 8.8 fl (7.4-10.4); Monocytes # 0.2 K/mm3 (0.1-1.0); Monocytes % 5.8 % (1.7-9.3); Neutrophils # 2.3 K/mm3 (1.8-7.8); Neutrophils % 60.2 % (37.0-80.0); Platelet Count 171 K/mm3 (142-424); Red Blood Count 3.53 M/mm3 (4.20-5.40); Red Cell Distribution Width 13.9 % (11.5-17.5); White Blood Count 3.9 K/mm3 (4.8-10.8)
[2019-03-07 13:17] LABS: Erythrocyte Sedimentation Rate 63 mm/hr (0-30)
[2019-03-07 13:41] LABS: Alanine Aminotransferase 16 U/L (12-78); Albumin Level 2.8 gm/dL (3.4-5.0); Albumin/Globulin Ratio 0.8 (1.1-1.8); Alkaline Phosphatase 72 U/L (46-116); Anion Gap 9.3 mEq/L (5-15); Aspartate Amino Transferase 17 U/L (15-37); Bilirubin,Total 0.4 mg/dL (0.2-1.0); Blood Urea Nitrogen 21 mg/dL (7-18); C-Reactive Protein 0.3 mg/L (0.0-0.9); Calcium 8.3 mg/dL (8.5-10.1); Carbon Dioxide 32 mmol/L (21.0-32.0); Chloride 107 mmol/L (98-107); Creatinine,Serum 0.99 mg/dL (0.55-1.02); Estimated Glomerular Filt Rate 54 ml/min (>60); GFR (African American) 66 ML/MIN (>60); Globulin 3.6 gm/dl (1.3-3.2); Glucose 110 mg/dL (74-106); Potassium 4.3 mmoL/L (3.5-5.1); Sodium 144 mmol/L (136-145); Total Protein,Serum 6.4 gm/dL (6.4-8.2)
== END ==
PROVIDERS: PCP Family Medicine; Visit Provider Orthopaedic Surgery
DX: M00.9 Pyogenic arthritis, unspecified (principal); Z48.89 Encounter for other specified surgical aftercare
CPT/HCPCS: 36415; 73560; 80053; 85025; 85651; 86140

== ENCOUNTER → 2019-03-15 13:32 | Outpatient (CLI) | payer MEDICARE, MEDICAID, SELFPAY ==
[2019-03-15 13:34] LABS: Microscopic, Urine URINE MICROSCOPIC (MICROSCOPIC)
[2019-03-15 14:43] LABS: Appearance,Urine CLEAR (Clear); Bilirubin,Urine Negative (Negative); Blood, Urine TRACE-L (Negative); Color,Urine YELLOW (Yellow); Glucose,Urine (UA) Negative (Negative); Ketones,Urine Negative (Negative); Leukocyte Esterase,Urine Negative (Negative); Nitrate,Urine Negative (Negative); Protein,Urine Negative (Negative); Specific Gravity, Urine 1.015 (1.005-1.030); Urobilinogen,Urine 0.2 EU/dl (0.2)
[2019-03-15 15:47] LABS: Bacteria,Urine Trace /lpf; Squamous Epithelial Cell,Urine Occasional #/hpf (0-5)
== END ==
PROVIDERS: Visit Provider Family Medicine
DX: R41.82 Altered mental status, unspecified (principal)
CPT/HCPCS: 81001

== ENCOUNTER → 2019-04-04 12:04 | Outpatient (CLI) | payer MEDICARE, MEDICAID, SELFPAY ==
--- NOTE | 2019-04-04 12:21 | XR_ITS ---
XR knee RT 2V HISTORY: ITS.REASON: sp RT knee washout, dos 11/28/18 ORDERING PHYSICIAN: Dayo Slater MD PATIENT AGE: 78 years COMPARISON: 03/07/2019. FINDINGS: Again seen are the degenerative changes in the femoral/tibial joint space which is moderate to severely narrowed, especially lateral compartment. The irregularities of the femoral condyle and tibial plateau cortical areas remain stable. The osteopenia is unchanged. The soft tissue calcifications likely dystrophic medially are unchanged. There is no definite acute fracture and no indirect evidence of a joint effusion on today's study. Impression: Overall no change. There are stable severe arthritic changes which could be chronic sequela from the prior osteomyelitis and septic arthritis. By plain film exam a low-grade underlying chronic infection cannot be ruled out.
[2019-04-04 12:48] LABS: Basophils % 0.5 % (0.1-2.0); Eosinophils # 0.2 K/mm3 (0.0-0.4); Eosinophils % 6.1 % (0.1-12.0); Hematocrit 38.8 % (37.0-47.0); Hemoglobin 11.5 g/dL (12.2-16.2); Lymphocytes # 1.2 K/mm3 (0.7-4.5); Lymphocytes % 33.8 % (10-50); Mean Corpuscular HGB Conc 29.8 g/dL (31.8-35.4); Mean Corpuscular Volume 100.9 fl (81-99); Mean Platelet Volume 8.4 fl (7.4-10.4); Monocytes # 0.2 K/mm3 (0.1-1.0); Monocytes % 5.6 % (1.7-9.3); Neutrophils # 1.9 K/mm3 (1.8-7.8); Platelet Count 177 K/mm3 (142-424); Red Blood Count 3.84 M/mm3 (4.20-5.40); Red Cell Distribution Width 13.4 % (11.5-17.5); White Blood Count 3.5 K/mm3 (4.8-10.8)
[2019-04-04 13:16] LABS: Erythrocyte Sedimentation Rate 28 mm/hr (0-30)
[2019-04-04 13:20] LABS: Alanine Aminotransferase 17 U/L (12-78); Albumin Level 2.8 gm/dL (3.4-5.0); Albumin/Globulin Ratio 0.8 (1.1-1.8); Alkaline Phosphatase 74 U/L (46-116); Anion Gap 12.7 mEq/L (5-15); Aspartate Amino Transferase 16 U/L (15-37); Bilirubin,Total 0.3 mg/dL (0.2-1.0); Blood Urea Nitrogen 21 mg/dL (7-18); Calcium 8.3 mg/dL (8.5-10.1); Carbon Dioxide 29 mmol/L (21.0-32.0); Chloride 106 mmol/L (98-107); Creatinine,Serum 0.95 mg/dL (0.55-1.02); Estimated Glomerular Filt Rate 57 ml/min (>60); GFR (African American) 69 ML/MIN (>60); Globulin 3.5 gm/dl (1.3-3.2); Glucose 99 mg/dL (74-106); Potassium 4.7 mmoL/L (3.5-5.1); Sodium 143 mmol/L (136-145); Total Protein,Serum 6.3 gm/dL (6.4-8.2)
[2019-04-04 13:22] LABS: C-Reactive Protein < 0.2 mg/L (0.0-0.9)
== END ==
PROVIDERS: PCP Family Medicine; Visit Provider Orthopaedic Surgery
DX: M00.9 Pyogenic arthritis, unspecified (principal); Z48.89 Encounter for other specified surgical aftercare
CPT/HCPCS: 36415; 73560; 80053; 85025; 85651; 86140

== ENCOUNTER → 2019-06-04 12:30 | Outpatient (CLI) | payer MEDICARE, MEDICAID, SELFPAY ==
--- NOTE | 2019-06-04 12:56 | XR_ITS ---
PROCEDURE: XR KNEE RT 2V CLINICAL INDICATION: sp RT knee washout dos 11/28/18 Follow-up septic joint COMPARISON: KNEELMRT XR knee RT 2V from 01/24/2019 FINDINGS: There has been improvement in the bony destruction of the medial compartment of the left knee. The articular surfaces are more sclerotic on today's exam. There remains some depression of the medial tibial plateau with hyperostosis/osteophyte formation medially and laterally. There is mild varus angulation of the distal tibia. IMPRESSION: Severe degenerative changes with improvement in bony destruction of the medial compartment Dictated by: Malcolm Calixto MD 06/04/2019 13:22 Signed by: <Electronically signed by Malcolm Calixto MD in [place]> 06/04/2019 13:22
[2019-06-04 13:02] LABS: Basophils % 0.3 % (0.1-2.0); Eosinophils # 0.4 K/mm3 (0.0-0.4); Eosinophils % 9.1 % (0.1-12.0); Hematocrit 39.3 % (37.0-47.0); Hemoglobin 12.4 g/dL (12.2-16.2); Lymphocytes # 1.5 K/mm3 (0.7-4.5); Lymphocytes % 37.6 % (10-50); Mean Corpuscular HGB Conc 31.7 g/dL (31.8-35.4); Mean Corpuscular Hemoglobin 31.1 pg (27.0-31.2); Mean Corpuscular Volume 98.3 fl (81-99); Mean Platelet Volume 7.6 fl (7.4-10.4); Monocytes # 0.3 K/mm3 (0.1-1.0); Monocytes % 7.1 % (1.7-9.3); Neutrophils # 1.9 K/mm3 (1.8-7.8); Neutrophils % 45.9 % (37.0-80.0); Platelet Count 184 K/mm3 (142-424); Red Blood Count 3.99 M/mm3 (4.20-5.40); Red Cell Distribution Width 13.3 % (11.5-17.5); White Blood Count 4.1 K/mm3 (4.8-10.8)
[2019-06-04 13:13] LABS: Alanine Aminotransferase 15 U/L (12-78); Albumin/Globulin Ratio 0.8 (1.1-1.8); Alkaline Phosphatase 65 U/L (46-116); Anion Gap 8.6 mEq/L (5-15); Aspartate Amino Transferase 19 U/L (15-37); Bilirubin,Total 0.3 mg/dL (0.2-1.0); Blood Urea Nitrogen 27 mg/dL (7-18); C-Reactive Protein 0.4 mg/dL (0.0-0.9); Calcium 8.7 mg/dL (8.5-10.1); Carbon Dioxide 32 mmol/L (21.0-32.0); Chloride 106 mmol/L (98-107); Estimated Glomerular Filt Rate 43 ml/min (>60); GFR (African American) 53 ML/MIN (>60); Globulin 3.6 gm/dl (1.3-3.2); Glucose 109 mg/dL (74-106); Potassium 4.6 mmoL/L (3.5-5.1); Sodium 142 mmol/L (136-145); Total Protein,Serum 6.6 gm/dL (6.4-8.2)
[2019-06-04 13:34] LABS: Erythrocyte Sedimentation Rate 24 mm/hr (0-30)
== END ==
PROVIDERS: PCP Family Medicine; Visit Provider Orthopaedic Surgery
DX: M86.9 Osteomyelitis, unspecified (principal)
CPT/HCPCS: 36415; 73560; 80053; 85025; 85651; 86140

== ENCOUNTER → 2019-09-10 12:11 | Outpatient (CLI) | payer MEDICARE, MEDICAID, SELFPAY ==
--- NOTE | 2019-09-10 13:18 | XR_ITS ---
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 There is history of septic joint with bony destruction. There is some periarticular calcification medially at the distal femur. Overall there has been no significant change compared to the previous study. IMPRESSION: Overall no change in the post septic joint severe arthritic changes Dictated by: Malcolm Calixto MD 09/10/2019 15:35 Electronically signed by Malcolm Calixto MD in [place] 09/10/2019 15:35
[2019-09-10 13:28] LABS: Basophils % 0.6 % (0.1-2.0); Eosinophils # 0.2 K/mm3 (0.0-0.4); Eosinophils % 5.2 % (0.1-12.0); Hematocrit 44.5 % (37.0-47.0); Hemoglobin 13.5 g/dL (12.2-16.2); Lymphocytes # 1.5 K/mm3 (0.7-4.5); Lymphocytes % 35.6 % (10-50); Mean Corpuscular HGB Conc 30.4 g/dL (31.8-35.4); Mean Corpuscular Hemoglobin 30.3 pg (27.0-31.2); Mean Corpuscular Volume 99.8 fl (81-99); Mean Platelet Volume 8.3 fl (7.4-10.4); Monocytes # 0.2 K/mm3 (0.1-1.0); Monocytes % 5.3 % (1.7-9.3); Neutrophils # 2.3 K/mm3 (1.8-7.8); Neutrophils % 53.4 % (37.0-80.0); Platelet Count 191 K/mm3 (142-424); Red Blood Count 4.46 M/mm3 (4.20-5.40); Red Cell Distribution Width 13.1 % (11.5-17.5); White Blood Count 4.3 K/mm3 (4.8-10.8)
[2019-09-10 13:40] LABS: Alanine Aminotransferase 11 U/L (12-78); Albumin Level 3.2 gm/dL (3.4-5.0); Albumin/Globulin Ratio 0.9 (1.1-1.8); Alkaline Phosphatase 71 U/L (46-116); Anion Gap 9.5 mEq/L (5-15); Aspartate Amino Transferase 15 U/L (15-37); Bilirubin,Total 0.4 mg/dL (0.2-1.0); Blood Urea Nitrogen 26 mg/dL (7-18); Calcium 8.5 mg/dL (8.5-10.1); Carbon Dioxide 34 mmol/L (21.0-32.0); Chloride 105 mmol/L (98-107); Creatinine,Serum 1.24 mg/dL (0.55-1.02); Estimated Glomerular Filt Rate 42 ml/min (>60); GFR (African American) 51 ML/MIN (>60); Globulin 3.5 gm/dl (1.3-3.2); Glucose 127 mg/dL (74-106); Potassium 4.5 mmoL/L (3.5-5.1); Sodium 144 mmol/L (136-145); Total Protein,Serum 6.7 gm/dL (6.4-8.2)
[2019-09-10 13:41] LABS: C-Reactive Protein < 0.2 mg/dL (0.0-0.9)
[2019-09-10 13:55] LABS: Erythrocyte Sedimentation Rate 16 mm/hr (0-30)
== END ==
PROVIDERS: PCP Family Medicine; Visit Provider Orthopaedic Surgery
DX: M00.9 Pyogenic arthritis, unspecified (principal); Z09 Encounter for follow-up examination after completed treatment for conditions other than malignant neoplasm
CPT/HCPCS: 36415; 73560; 80053; 85025; 85651; 86140

== ENCOUNTER → 2019-11-16 11:47 | Outpatient (CLI) | payer MEDICARE, MEDICAID, SELFPAY ==
[2019-11-16 11:54] LABS: Microscopic, Urine URINE MICROSCOPIC (MICROSCOPIC)
[2019-11-16 12:57] LABS: Appearance,Urine CLOUDY (Clear); Bilirubin,Urine Negative (Negative); Blood, Urine 1+ (Negative); Color,Urine YELLOW (Yellow); Glucose,Urine (UA) Negative (Negative); Ketones,Urine Negative (Negative); Leukocyte Esterase,Urine 3+ (Negative); Nitrate,Urine POSITIVE (Negative); Protein,Urine Negative (Negative); Urobilinogen,Urine 0.2 EU/dl (0.2)
[2019-11-16 13:21] LABS: Bacteria,Urine 3+ /lpf; WBC,Urine TNTC #/hpf (0-3)
== END ==
PROVIDERS: Visit Provider Family Medicine
DX: N39.0 Urinary tract infection, site not specified (principal)
CPT/HCPCS: 81001; 87086; 87088; 87186

== ENCOUNTER 2020-09-14 04:39 | Observation (INO) | payer MEDICARE, MEDICAID, SELFPAY ==
[2020-09-14] VITALS (11 sets, daily range): BP systolic 115–162; BP diastolic 74–100; PULSE 74–108; RESP 16–22; TEMP 36.8–37.1; O2SAT 90–98; BMI 40.4
[2020-09-14 04:56] LABS: Basophils % 0.3 % (0.1-2.0); Eosinophils # 0.2 K/mm3 (0.0-0.4); Eosinophils % 3.3 % (0.1-12.0); Hematocrit 51.9 % (37.0-47.0); Hemoglobin 16.6 g/dL (12.2-16.2); Lymphocytes # 2.1 K/mm3 (0.7-4.5); Lymphocytes % 35.7 % (10-50); Mean Corpuscular HGB Conc 31.9 g/dL (31.8-35.4); Mean Corpuscular Hemoglobin 32.7 pg (27.0-31.2); Mean Corpuscular Volume 102.4 fl (81-99); Mean Platelet Volume 8.6 fl (7.4-10.4); Monocytes # 0.3 K/mm3 (0.1-1.0); Monocytes % 5.5 % (1.7-9.3); Neutrophils # 3.2 K/mm3 (1.8-7.8); Neutrophils % 55.1 % (37.0-80.0); Platelet Count 159 K/mm3 (142-424); Red Blood Count 5.06 M/mm3 (4.20-5.40); Red Cell Distribution Width 13.2 % (11.5-17.5); White Blood Count 5.8 K/mm3 (4.8-10.8)
--- NOTE | 2020-09-14 04:58 | PC.NURSE ---
wt obtained via ri nurse report at 266 lbs
[2020-09-14 04:59] LABS: Alanine Aminotransferase 23 U/L (12-78); Albumin Level 3.8 g/dl (3.5-5.0); Albumin/Globulin Ratio 1.2 (1.1-1.8); Alkaline Phosphatase 65 U/L (38-126); Anion Gap 9.5 mEq/L (5-15); Aspartate Amino Transferase 34 U/L (14-36); Bilirubin,Total 0.8 mg/dl (0.2-1.3); Blood Urea Nitrogen 24 mg/dl (7-17); Calcium 8.8 mg/dl (8.4-10.2); Carbon Dioxide 34 mmol/L (22.0-30.0); Chloride 98 mmol/L (98-107); Creatinine Clearance Estimated 87 mL/min (50-200); Estimated Glomerular Filt Rate 69 ml/min (>60); GFR (African American) 84 ML/MIN (>60); Globulin 3.3 g/dL (1.3-3.2); Glucose 140 mg/dl (74-100); Potassium 4.5 mmoL/L (3.5-5.1); Sodium 137 mmol/L (136-145); Total Protein,Serum 7.1 g/dl (6.3-8.2)
--- NOTE | 2020-09-14 05:02 | HMH.EDEPIS ---
ED Disposition Clinical Impression: Epistaxis, Factor 5 Leiden mutation, heterozygous, Obstructive sleep apnea Hypothyroidism Qualifiers: Hypothyroidism type: acquired Qualified Code(s): E03.9 - Hypothyroidism, unspecified Disposition: Admitted As Inpatient Condition on Discharge: Fair Instructions: DI for Nosebleed Referrals: PCP,No [Non-Staff] - - Critical Care Critical Care Time: No Attestation: On 09/14/20, the high probability of a clinically significant, sudden or life threatening deterioration of the following system(s) required my full and direct attention, intervention and personal management. The time I documented below is in addition to time spent performing reported procedures but includes the following listed in this critical care notation. Medical Decision Making - Medical Records Medical records reviewed: Yes: I reviewed the patient's medical records. - Delvin Inquiry Pt receiving controlled substance: No Vital Signs: 09/14/20 04:50 09/14/20 04:57 09/14/20 06:12 Temperature 98.7 F Temperature Source Temporal Artery Scan Pulse Rate [Right Brachial] 80 86 108 H Respiratory Rate 16 16 22 Blood Pressure [Right Arm] 134/89 141/84 H 115/89 Blood Pressure Mean [Right Arm] 104 103 97 Blood Pressure Source [Right Arm] Automatic Cuff Automatic Cuff Blood Pressure Position [Right Arm] Sitting Supine 02 Sat by Pulse Oximetry 95 92 L 91 L Oxygen Delivery Method Room Air Nasal Cannula Nasal Cannula Oxygen Flow Rate (LPM) 2 2 09/14/20 08:00 09/14/20 09:37 09/14/20 11:13 Temperature Temperature Source Pulse Rate [Right Brachial] 96 H 92 H 96 H Respiratory Rate 20 Blood Pressure [Right Arm] 154/100 H 151/95 H 161/91 H Blood Pressure Mean [Right Arm] 118 113 114 Blood Pressure Source [Right Arm] Automatic Cuff Automatic Cuff Blood Pressure Position [Right Arm] Sitting Sitting Sitting 02 Sat by Pulse Oximetry 94 L 93 L 96 Oxygen Delivery Method Room Air Nasal Cannula Nasal Cannula Oxygen Flow Rate (LPM) 2 2 09/14/20 12:00 Temperature Temperature Source Pulse Rate [Right Brachial] 88 Respiratory Rate Blood Pressure [Right Arm] 162/93 H Blood Pressure Mean [Right Arm] 116 Blood Pressure Source [Right Arm] Automatic Cuff Blood Pressure Position [Right Arm] Sitting 02 Sat by Pulse Oximetry 90 L Oxygen Delivery Method Nasal Cannula Oxygen Flow Rate (LPM) 2 - Lab Data Lab results reviewed: Yes: I reviewed the patient's lab results. Lab Results 09/14/20 04:43: WBC 5.8, RBC 5.06, Hgb 16.6 H, Hct 51.9 H, MCV 102.4 H, MCH 32.7 H, MCHC 31.9, RDW 13.2, Plt Count 159, MPV 8.6, Neut % (Auto) 55.1, Lymph % (Auto) 35.7, Rhea % (Auto) 5.5, Eos % (Auto) 3.3, Baso % (Auto) 0.3, Neut # (Auto) 3.2, Lymph # (Auto) 2.1, Rhea # (Auto) 0.3, Eos # (Auto) 0.2, Baso # (Auto) 0.0 09/14/20 04:43: Sodium 137, Potassium 4.5, Chloride 98, Carbon Dioxide 34 H, Anion Gap 9.5, BUN 24 H, Creatinine 0.80, Estimated Creat Clear 87, Estimated GFR 69, Est GFR ( Amer) 84, Glucose 140 H, Calcium 8.8, Total Bilirubin 0.8, AST 34, ALT 23, Alkaline Phosphatase 65, Total Protein 7.1, Albumin 3.8, Globulin 3.3 H, Albumin/Globulin Ratio 1.2 09/14/20 04:43: APTT 22.1 L 09/14/20 04:43: SARS-CoV-2 IgG Ab (Rapid) Negative, SARS-CoV-2 IgM Ab (Rapid) Negative Result diagrams: 09/14/20 04:43 09/14/20 04:43 Orders (Tests/Meds): ED MEDICATIONS Discontinued Medications Generic Name Dose Route Start Last Admin Trade Name Kemar PRN Reason Stop Dose Admin Cocaine HCl 4 ml 09/14/20 04:48 09/14/20 06:06 Cocaine 4% Topical Soln 4ml Bottle TP 09/14/20 04:49 4 ml ONCE ONE Administration Cocaine HCl 4 ml 09/14/20 05:59 09/14/20 06:06 Cocaine 4% Topical Soln 4ml Bottle TP 09/14/20 06:00 4 ml ONCE ONE Administration Sodium Chloride 1,000 mls @ 999 mls/hr 09/14/20 06:30 09/14/20 06:27 Sod Chlor 0.9% 1000ml Bag IV 09/14/20 07:30 999 mls/hr .Q1H1M SARAH Administration Morphine Sulfate
[2020-09-14 05:19] LABS: Activated Partial Thrombo Time 22.1 seconds (23.6-34.0)
--- NOTE | 2020-09-14 05:25 | PC.NURSE ---
pt is a mouth-breather, and oxygen is applied using 2lpm nc to her mouth at this time per her request to increase o2
--- NOTE | 2020-09-14 06:11 | PC.NURSE ---
md at bedside attempting to anchor anterior/posterior nasal rockets/
--- NOTE | 2020-09-14 06:16 | PC.NURSE ---
paged dr hector
[2020-09-14 06:41] LABS: Coronavirus 19 IgG Antibody Negative (Negative); Coronavirus 19 IgM Antibody Negative (Negative)
--- NOTE | 2020-09-14 09:11 | PC.NURSE ---
Pt's sister has called to check on her. let her know that Dr Livingston will be here to see her as soon as he gets out of clinic.
--- NOTE | 2020-09-14 11:49 | PC.NURSE ---
pt repositioned in bed and oral care provided.
--- NOTE | 2020-09-14 12:56 | PC.NURSE ---
pt sister at BS, pt sleeping
--- NOTE | 2020-09-14 13:10 | PC.NURSE ---
per Dr. Livingston pt needs to be admitted to Dr. Best and he is going to take pt to the OR in the morning. contacted Dr. Waggoner, he states he will place admission orders for pt and to notify Dr. Best we are admitting pt.
--- NOTE | 2020-09-14 13:13 | PC.NURSE ---
forming yardage control operator paging , office staff states he is in transit from [facility] to [facility]
--- NOTE | 2020-09-14 13:27 | XR_ITS ---
PROCEDURE: XR CHEST PORTABLE CLINICAL HISTORY: pre op Shortness of breath COMPARISON: CT AGCHEST CT angio chest from 11/22/2018 CR [id number] XR chest portable PICC plac from 12/31/2018 CR XR CHEST PORTABLE from 06/26/2019 CR XR CHEST PORTABLE from 11/01/2019 FINDINGS: The cardiomediastinal silhouette and pulmonary vascularity are within normal limits. Minimal atelectatic or fibrotic changes noted in upper lobes on both sides. No lobar consolidation or collapse. Prominent hypertrophic changes are present involving the right AC joint. IMPRESSION: Mild atelectatic or fibrotic change otherwise negative. Dictated by: Malcolm Calixto MD 09/14/2020 14:05 Malcolm Calixto MD in [facility] 09/14/2020 14:05
--- NOTE | 2020-09-14 13:27 | CA_ITS ---
APPROVED REPORT EXAM: Comprehensive 2D, Doppler, and color-flow Echocardiogram Deputy Commissioner: Mayra Aleman RVT Ht: 5 ft 8 in Wt: 266lbs BSA: 2.31 BP: 162/93 mmHg Indications: PRE-OP,EPISTAXIS,FACTOR 5 LEIDEN MUTATION,,MURMUR,HLD,DM,IDALIA,CVA,DEMENTIA,PHTN TDS 2D Dimensions LVOT 3.00 cm (M/F) 1.5-2.5 M-Mode Dimensions RVDd 3.01 cm (0.9-2.6) LA Diam 5.03 cm (1.9-4.0) LVDd 5.13 cm (3.5-5.7) Ao Diam 3.49 cm (2.0-3.7) LVDs 3.47 cm (3.5-5.7) IVSd 1.27 cm (0.6-1.1) PWd 0.81 cm (0.6-1.1) EF (Teich) 60.30% FS 32.40% EDV (Teich) 125.50 mL ESV (Teich) 49.80 mL LV Diastology E Decel Time 280.00 (160-240 msec) E/A Ratio 0.6 MED E' 5.40 (< 7 cm/sec) E'/MED E' Ratio 9.83 (>14) LAT E' 7.80 (<10 cm/sec) E/LAT E' Ratio 6.81 (>14) Mitral Valve MV E Max Roly. 53.00 (40-130 cm/s) MV A Velocity 85.00 (40-130 cm/s) E/A Ratio 0.62 MV Decel. Time 280.00 (160-240 ms) MV PHT 82.00 ms Pulmonary Valve PV Peak Velocity 81.00 (50-150 cm/s) Tricuspid Valve TR P. Velocity 325.00 cm/s Left Ventricle Technically difficult study, left atrium is mildly enlarged, left ventricle is normal size, mild concentric left ventricular hypertrophy, visually estimated ejection fraction 55% with no regional wall motion abnormality, grade 1 diastolic dysfunction seen without tissue Doppler evidence of raise left atrial pressure. Right Ventricle Right atrium and right ventricle mildly enlarged with normal contractility. Aortic Valve Aortic valve is thickened and calcified without Doppler evidence of aortic stenosis or aortic insufficiency. Mitral Valve Mitral valve is grossly normal, there is mild mitral regurgitation. Tricuspid Valve Tricuspid valve grossly normal, there is mild tricuspid regurgitation, tricuspid regurgitation jet velocity is inadequate for calculation of the right ventricular systolic pressure. Pulmonic Valve Pulmonic valve is poorly visualized. Great Vessels Aortic root is normal size. Pericardium No significant pericardial effusion noted. Conclusion 1. Biatrial enlargement, normal left ventricular size, mild concentric left ventricular hypertrophy, visually estimated ejection fraction 55% with no regional wall motion abnormality, grade 1 diastolic dysfunction seen without tissue Doppler evidence of raise left atrial pressure. 2. Mildly enlarged right ventricle with normal contractility. 3. Mild mitral and tricuspid regurgitation. 4. No significant pericardial effusion noted. Electronically signed by : Giancarlo Anthony, 09/15/2020 06:02:57
--- NOTE | 2020-09-14 13:35 | PC.NURSE ---
P depends and bed sheets change, pt given lunch tray and call marmolejo, no needs at this time,
--- NOTE | 2020-09-14 13:49 | PC.NURSE ---
rad at BS for portable xray
[2020-09-14 14:02] LABS: POC Glucose,Bedside 214 (70-110)
--- NOTE | 2020-09-14 14:08 | HMH.GSCON ---
*Admission Date: 09/14/20 *Reason for consult:: epistaxis *History of present illness: since last pm Review of Systems - *Neurologic Denies localized weakness [facility] History Medical History: Reports:: Cerebrovascular Accident, Deep Vein Thrombosis, Dementia, Depression, Diabetes Mellitus Type 2, Heart Murmur, Hyperlipidemia, MRSA, Transient Ischemic Attacks (TIA) Denies:: Cancer, Internal Pacemaker, Seizures *Have you ever received a pneumonia vaccine?: Yes *Have you received a flu vaccine this season?: Yes Other Medical History: Reports: Anemia, Arthritis. Denies: Blood Transfusion Reaction Laterality Cases: Bilateral: Tonsillectomy Other Surgeries: Yes: Hysterectomy-Total, Other. No: Pacemaker Amputation: No - *Social History Smoking Status: Never smoker Alcohol Intake: never *Occupational Status:: disabled Housing: snf Household Members: none *Travel in the last 8 weeks: None - Psychiatric History Pschychiatric History:: Reports:: Depression Family Hx:: Diabetes, Heart Attack, Bleeding Disorder, Cancer Meds Home Medications Medication Instructions Recorded Confirmed Type Acetaminophen [Tylenol] 650 mg PO Q4HP PRN 11/21/18 09/14/20 History Atorvastatin Calcium [Lipitor 10mg 10 mg PO HS 11/21/18 09/14/20 History Tab] Cyanocobalamin (Vitamin B-12) 1,000 mcg PO DAILY 11/21/18 09/14/20 History [Vitamin B-12] Ferrous Sulfate [Ferrous Sulfate 325 mg PO DAILY 11/21/18 09/14/20 History 325mg Tablet] Hydrocodone/Acetaminophen [Cabery 1 tab PO Q4H 11/21/18 09/14/20 History 10-325 Tablet] Magnesium Oxide [Magnesium] 400 mg PO DAILY 11/21/18 09/14/20 History fentaNYL [Duragesic] 50 mcg TD Q72H 11/21/18 09/14/20 History Donepezil HCl [Aricept 5mg 5 mg PO DAILY 01/11/19 09/14/20 History Tablet] Levothyroxine Sodium [Synthroid 25 mcg PO DAILYDM 01/11/19 09/14/20 History 25mcg (0.025mg) tablet] Potassium Chloride [Klor-con 20 20 meq PO TID 01/11/19 09/14/20 History mEq tablet] Escitalopram Oxalate 10 mg PO DAILY 09/14/20 09/14/20 History Famotidine [Acid Controller] 20 mg PO DAILY 09/14/20 09/14/20 History Meloxicam 7.5 mg PO DAILY 09/14/20 09/14/20 History Memantine HCl [Memantine 10mg 10 mg PO BID 09/14/20 09/14/20 History Tablet] Rivaroxaban [Xarelto 20mg Tablet*] 20 mg PO DAILY 09/14/20 09/14/20 History allopurinoL [Allopurinol 100mg 100 mg PO DAILY 09/14/20 09/14/20 History tablet] Allergies Allergy/AdvReac Type Severity Reaction Status Date / Time No Known Allergies Allergy Verified 09/10/19 15:17 Exam Vital signs and Labs for Last 24 Hours: Temp Pulse Resp BP Pulse Ox 98.7 F 76 20 156/93 H 97 09/14/20 04:50 09/14/20 13:14 09/14/20 08:00 09/14/20 13:14 09/14/20 13:14 Laboratory Results - last 24 hr 09/14/20 04:43: WBC 5.8, RBC 5.06, Hgb 16.6 H, Hct 51.9 H, MCV 102.4 H, MCH 32.7 H, MCHC 31.9, RDW 13.2, Plt Count 159, MPV 8.6, Neut % (Auto) 55.1, Lymph % (Auto) 35.7, Ida % (Auto) 5.5, Eos % (Auto) 3.3, Baso % (Auto) 0.3, Neut # (Auto) 3.2, Lymph # (Auto) 2.1, Ida # (Auto) 0.3, Eos # (Auto) 0.2, Baso # (Auto) 0.0 09/14/20 04:43: Sodium 137, Potassium 4.5, Chloride 98, Carbon Dioxide 34 H, Anion Gap 9.5, BUN 24 H, Creatinine 0.80, Estimated Creat Clear 87, Estimated GFR 69, Est GFR ( Amer) 84, Glucose 140 H, Calcium 8.8, Total Bilirubin 0.8, AST 34, ALT 23, Alkaline Phosphatase 65, Total Protein 7.1, Albumin 3.8, Globulin 3.3 H, Albumin/Globulin Ratio 1.2 09/14/20 04:43: APTT 22.1 L 09/14/20 04:43: SARS-CoV-2 IgG Ab (Rapid) Negative, SARS-CoV-2 IgM Ab (Rapid) Negative 09/14/20 13:54: POC Glucose 214 H I & O for Last 24 hours: Intake & Output 09/11/20 09/12/20 09/13/20 09/14/20 23:59 23:59 23:59 23:59 Weight 266 lb - *Routine HEENT Exam Comments: This patient was examined at 1 PM on September 14, 2020 approximately 12 hours since the onset of significant nasal hemorrhaging which was controlled by Dr. Arambula
--- NOTE | 2020-09-14 14:14 | HMH.PHAVTE ---
[facility] Pharmacy VTE Monitoring - Patient Demographics Admission date: 09/14/20 Report Date: 09/14/20 Time: 14:14 Allergies/Adverse Reactions: Patient Allergies No Known Allergies Allergy (Verified 09/10/19 15:17) Height: 1.73 m Weight: 120.656 kg Patient Problems: Current Active Problems Factor 5 Leiden mutation, heterozygous (Chronic) Obstructive sleep apnea (Chronic) Hypothyroidism (Acute) Epistaxis (Acute) - VTE Risk Labs: VTE Related Lab Results Hgb 16.6 g/dL (12.2-16.2) H 09/14/20 04:43 Hct 51.9 % (37.0-47.0) H 09/14/20 04:43 Plt Count 159 K/mm3 (142-424) 09/14/20 04:43 APTT 22.1 seconds (23.6-34.0) L 09/14/20 04:43 BUN 24 mg/dl (7-17) H 09/14/20 04:43 Creatinine 0.80 mg/dl (0.52-1.04) 09/14/20 04:43 Estimated Creat Clear 87 mL/min (50-200) 09/14/20 04:43 Clinical Trial Participant: No - Prophylaxis VTE Prophylaxis Ordered?: Yes Types of VTE Prophylaxis: TEDS Knee High
--- NOTE | 2020-09-14 14:43 | HMH.PHAINT ---
[place] completed [place] [facility]
--- NOTE | 2020-09-14 15:06 | PC.NURSE ---
cornel hobbs at BS
--- NOTE | 2020-09-14 15:35 | HMH.CNCARD ---
History of Present Illness Consult date: 09/14/20 Requesting physician: Mustapha Best Consult reason: pre-op evaluation Chief complaint: Nose bleed Additional Medical History:: 1. History of traumatic injury to right lower extremity at age 13 2. Factor V Leiden deficiency, chronic Xarelto therapy A. History of DVTs 3. History of TIA/CVA/dementia 4. Diabetes mellitus type 2 5. Hyperlipidemia 6. Hypothyroidism, on replacement therapy History of present illness: pt presents with a nosebleed that the ma reports they can't get stopped despite the placement of two super sized tampons in bilateral nares. ma nurse reports patient will not leave them alone . stated they called dr miller and attempted to manage the nosebleed there per his request. It has been ongoing since 29. Pt is on xarelto The above per TEODORO Carpenter MD Patient relates nosebleed x2 days with attempts at stopping it having failed as outpatient. Patient denies any chest pain, pressure or tightness. No prior history of cardiac problems. [facility] History Medical History: Reports:: Cerebrovascular Accident, Deep Vein Thrombosis, Dementia, Depression, Diabetes Mellitus Type 2, Heart Murmur, Hyperlipidemia, MRSA, Transient Ischemic Attacks (TIA) Denies:: Cancer, Internal Pacemaker, Seizures *Have you ever received a pneumonia vaccine?: Yes *Have you received a flu vaccine this season?: Yes Other Medical History: Reports: Anemia, Arthritis. Denies: Blood Transfusion Reaction Laterality Cases: Bilateral: Tonsillectomy Other Surgeries: Yes: Hysterectomy-Total, Other. No: Pacemaker Amputation: No - *Social History Smoking Status: Never smoker Alcohol Intake: never *Occupational Status:: disabled Housing: custodial Household Members: none *Travel in the last 8 weeks: None - Psychiatric History Pschychiatric History:: Reports:: Depression Family Hx:: Diabetes, Heart Attack, Bleeding Disorder, Cancer Meds Home Medications Medication Instructions Recorded Confirmed Type Acetaminophen [Tylenol] 650 mg PO Q4HP PRN 11/21/18 09/14/20 History Atorvastatin Calcium [Lipitor 10mg 10 mg PO HS 11/21/18 09/14/20 History Tab] Cyanocobalamin (Vitamin B-12) 1,000 mcg PO DAILY 11/21/18 09/14/20 History [Vitamin B-12] Ferrous Sulfate [Ferrous Sulfate 325 mg PO DAILY 11/21/18 09/14/20 History 325mg Tablet] Hydrocodone/Acetaminophen [Matheson 1 tab PO Q4HP PRN 11/21/18 09/14/20 History 10-325 Tablet] Magnesium Oxide [Magnesium] 400 mg PO DAILY 11/21/18 09/14/20 History fentaNYL [Duragesic] 75 mcg TD Q72H 11/21/18 09/14/20 History Donepezil HCl [Aricept 5mg 10 mg PO DAILY 01/11/19 09/14/20 History Tablet] Levothyroxine Sodium [Synthroid 50 mcg PO DAILYDM 01/11/19 09/14/20 History 25mcg (0.025mg) tablet] Potassium Chloride [Klor-con 20 20 meq PO DAILY 01/11/19 09/14/20 History mEq tablet] Ascorbic Acid 500 mg PO DAILY 09/14/20 09/14/20 History Cholecalciferol (Vitamin D3) 2,000 unit PO DAILY 09/14/20 09/14/20 History [Vitamin D3 1,000 Unit Cap] Cranberry Fruit Concentrate [Azo 250 mg PO DAILY 09/14/20 09/14/20 History Cranberry] Escitalopram Oxalate 10 mg PO DAILY 09/14/20 09/14/20 History Famotidine [Acid Controller] 20 mg PO DAILY 09/14/20 09/14/20 History Fluticasone Propionate [Flonase 1 spray NS BID 09/14/20 09/14/20 History Allergy Relief NS] Lactobacillus 3/Fos/Pantethine 1 each PO DAILY 09/14/20 09/14/20 History [Probiotic & Acidophilus Cap] Melatonin 5 mg PO HS 09/14/20 09/14/20 History Meloxicam 7.5 mg PO DAILY 09/14/20 09/14/20 History Memantine HCl [Memantine 10mg 10 mg PO BID 09/14/20 09/14/20 History Tablet] Nystatin [Nystatin Topical Powder 1 applicatio TP BIDP PRN 09/14/20 09/14/20 History 30GM*] Rivaroxaban [Xarelto 20mg Tablet*] 20 mg PO DAILY 09/14/20 09/14/20 History allopurinoL [Allopurinol 100mg 100 mg PO DAILY 09/14/20 09/14/20 History tablet] Allergies Allergy/Adv
--- NOTE | 2020-09-14 15:44 | HMH.HP ---
*Admission Date: 09/14/20 <Nanette Hanna - 09/14/20 16:20> *Chief complaint: Epistaxis <Nanette Hanna - 09/14/20 16:20> *History of present illness: Ms. 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 They did try placing 2 super tampons in each nostril with resolution of the nose bleed. Thus she was brought to the emergency room. In the emergency room with evaluation hemoglobin was found to be 16.6 with hematocrit of 51.9. Blood chemistries showed normal potassium and sodium with a BUN of 24 and creatinine 0.8. Blood sugar was 140. Liver function studies were normal. aPTT was low at 22.1. Chest x-ray revealed mild atelectatic or fibrotic changes and was otherwise negative. Patient had nasal cocaine instilled and received fluid boluses. She also had morphine sulfate and Zofran for nausea. She also had Afrin nasal spray x1. Patient was seen by Dr. Livingston, ENT, who noted that ER physician placed a rocket in the left nasal fossa with moderately good control of the hemorrhage which had extended postnasally. She also had a surgical gauze packing in the right nasal fossa that was under good control. There was minimal amount of postnasal continued bleeding but no active hemorrhaging. He stated the remainder of the head and neck exam was normal. Due to the fact that she continued with some bleeding and that she had been off her Xarelto for at least 24 hours, he recommended that she be taken to the OR for removal of the packings and to try to control the hemorrhage more effectively. She was scheduled at that time for the procedure to be performed at 730 AM on 09/15 under general anesthesia. He felt that he could attempt to control the problem completely. Otherwise he felt that she would continue to ooze around the packing. At the time of this exam patient does not appear to be actively bleeding. She states she does have some blood in the back of her throat. This has made it most difficult for her to eat and drink. She is currently awaiting admission to a hospital bed. <Hanna,Nanette 09/14/20 16:20> [facility] History Medical History: Reports:: Anxiety, Cerebrovascular Accident, Deep Vein Thrombosis, Dementia, Depression, Diabetes Mellitus Type 2, Heart Murmur, Hyperlipidemia, Hypertension, MRSA, Osteoporosis, Pulmonary Embolism, Transient Ischemic Attacks (TIA) Denies:: Cancer, Internal Pacemaker, Seizures <Nanette Hanna 09/14/20 16:20> *Have you ever received a pneumonia vaccine?: Yes <Nanette Hanna 09/14/20 16:20> *Have you received a flu vaccine this season?: Yes <Nanette Hanna 09/14/20 16:20> Other Medical History: Reports: Anemia, Arthritis, Hypothyroidism, Osteoporosis. Denies: Blood Transfusion Reaction <Nanette Hanna 09/14/20 16:20> Laterality Cases: Bilateral: Tonsillectomy <Nanette Hanna 09/14/20 16:20> Other Surgeries: Yes: Hysterectomy-Total, Thyroidectomy, Other. No: Pacemaker <Nanette Hanna 09/14/20 16:20> Amputation: No <Nanette Hanna 09/14/20 16:20> Comment: She has had 2 lumbar surgeries; vein ablation x5; arthroscopic/open debridement and washout of the right knee per Dr. Slater in November 2018 <Nanette Hanna 09/14/20 16:20> - *Social History Smoking Status: Never smoker <Nanette Hanna 09/14/20 16:20> Alcohol Intake: never <Nanette Hanna 09/14/20 16:20> *Occupational Status:: disabled
--- NOTE | 2020-09-14 16:04 | SW/DCPLANNER ---
Addendum entered by Heather Russ 09/16/20 11:28: Discharge summary has been faxed to Jasmin at [facility]. COVID results will be faxed once resulted. Addendum entered by Heather Russ 09/16/20 09:44: I have notified Jasmin from [facility] that this patient is medically stable for discharge today. Once COVID results are in I will follow up with Jasmin. Addendum entered by Heather Russ 09/15/20 09:57: Updated patient info has been faxed to Jas[facility] at [facility]. Original Note: This patient currently resides at [facility]. I have spoke with Jasmin from [facility] whom has stated that patient is I[facility] level of care. I will continue to follow up with Jasmin during patients stay.
--- NOTE | 2020-09-14 16:05 | PC.NURSE ---
director housekeeping gave bed assignment, states room is not ready yet, needs to be cleaned
--- NOTE | 2020-09-14 17:11 | PC.NURSE ---
spoke with OB staff who are getting pt states they are working on discharge for pt who is in room 277 at this time and then room will need to be cleaned. States they will call us when room is ready.
--- NOTE | 2020-09-14 18:00 | PC.NURSE ---
pt ate approx 1/2 bowl of soup and a few drinks of tea for supper.
--- NOTE | 2020-09-14 18:31 | PC.NURSE ---
OB staff states they are waiting on the room to be cleaned.
--- NOTE | 2020-09-14 18:43 | PC.NURSE ---
pt depends changed and repositioned in the bed at this time.
--- NOTE | 2020-09-14 19:35 | PC.NURSE ---
report received from day nurse.
--- NOTE | 2020-09-14 20:07 | XR_ITS ---
PROCEDURE: XR CHEST PORTABLE CLINICAL HISTORY: sob Shortness of breath COMPARISON: CT AGCHEST CT angio chest from 11/22/2018 CR XR CHEST PORTABLE from 06/26/2019 CR XR CHEST PORTABLE from 11/01/2019 CR XR CHEST PORTABLE from 09/14/2020 FINDINGS: Mild cardiomegaly without failure. Tortuosity/ectasia of the descending thoracic aorta. The lungs are clear without infiltrates, suspicious nodules, or pleural effusions. Degenerative changes of the shoulders. IMPRESSION: No change with no acute finding Dictated by: Malcolm Calixto MD 09/15/2020 05:26 Malcolm Calixto MD in [facility] 09/15/2020 05:26
--- NOTE | 2020-09-14 20:25 | PC.NURSE ---
pt resting with eyes closed, family member at bedside. pt to be d/c'd to 2nd floor room at this time.
[2020-09-15] VITALS (23 sets, daily range): BP systolic 120–198; BP diastolic 67–130; PULSE 71–128; RESP 16–20; TEMP 36.1–36.9; O2SAT 88–99
--- NOTE | 2020-09-15 04:00 | PC.NURSE ---
PT HAS RESTED WELL THIS SHIFT. NO ACTIVE NASAL BLEEDING. NASAL PACKING IN PLACE. PT BATHED AFTER ASSESSMENT, TOLERATED WELL. VITAL SIGN STABLE. HEART RATE REGULAR, EDEMA NOTED TO BILATERAL ARMS, PT REPORTS THAT THIS IS HER NORMAL. LUNGS CTAB. ACTIVE BOWEL SOUNDS X4 QUADS. VOIDS PER ATTENDS. PT BEDFAST, TURNED EVERY 2 HOURS. NO SKIN BREAKDOWN. A&O X 4 . IV PATENT. PT WITH CHRONIC PAIN, WELL CONTROLLED THIS SHIFT WITH SCHEDULED MEDICATION. CONSENTS SIGNED FOR SURGERY THIS AM. PT WITHOUT NEEDS OR CONCERNS. CALL LIGHT WITHIN REACH
--- NOTE | 2020-09-15 06:31 | PC.NURSE ---
PT OFF FLOOR AT THIS TIME TO PRE-OP. REPORT GIVEN TO MAIN MONTEMAYOR RN
--- NOTE | 2020-09-15 07:18 | HMH.ANESCL ---
[facility] Anesthesia Checklist - Structural Data Admitted From: Inpatient Planned Operative Procedure/s: epistaxis Consent for Planned Operative Procedure(s) Verified: Yes - Additional verifications Anesthesia Reactions: No Hx Blood Transfusions: No Blood Transfusion Reaction: No - Airway Assessment C-Spine Mobility Assessed: Yes TMJ Mobility Assessed: Yes Dentition: Good Dentition - Neurological Assessment Level of Consciousness: Awake, Alert, Appropriate - Anesthesia Plan Anesthesia Risk discussed: Yes Anesthesia Plan: Verified ASA Class: II Anesthesia Type: General [facility] History I have reviewed the patient's past medical history: Yes Medical History: Reports:: Anxiety, Cerebrovascular Accident, Deep Vein Thrombosis, Dementia, Depression, Diabetes Mellitus Type 2, Heart Murmur, Hyperlipidemia, Hypertension, MRSA, Osteoporosis, Pulmonary Embolism, Transient Ischemic Attacks (TIA) Denies:: Cancer, Diabetes Mellitus Type 1, Internal Pacemaker, Seizures *Have you ever received a pneumonia vaccine?: No *Have you received a flu vaccine this season?: Yes Other Medical History: Reports: Anemia, Arthritis, Hypothyroidism, Osteoporosis, Thyroid Disease. Denies: Blood Transfusion Reaction Anesthesia experience/problems:: none Laterality Cases: Bilateral: Tonsillectomy Other Surgeries: Yes: Hysterectomy-Total, Thyroidectomy, Other. No: Pacemaker Amputation: No - *Social History Smoking Status: Never smoker Alcohol Intake: never Substance Use Type: denies use *Occupational Status:: unemployed Housing: detention Household Members: none *Travel in the last 8 weeks: None - Psychiatric History Pschychiatric History:: Reports:: Anxiety, Depression Family Hx:: No significant family history
--- NOTE | 2020-09-15 08:45 | P.PN_ITS ---
[facility] Anesthesia Record Part I Intake, IV Amount: 700 Estimated blood loss (mL): 20 Urine output (mL): 0 Blood Pressure: 180/88 SaO2: 88 Pulse Rate: 120 Respiratory Rate: 20 Temperature: 97.5 F Patient is:: Awake, Stable Stable to PACU at:: 08:45
--- NOTE | 2020-09-15 09:02 | P.OP_ITS ---
Date of procedure: 09/15/20 Pre-op Diagnosis:: 1. Left nasal hemorrhage 2. Blockage of nasopharynx with blood clots 3. Extensive old blood clots in the oral pharynx and hypopharynx Post-op Diagnosis:: same Procedure performed:: 1. Removal of left nasal packing placed earlier in the ER 2. Removal of extensive old clots in the nasopharynx 3. Removal of extensive old clots in the oropharynx 4. Left posterior nasal cautery 5. Left nasal packing with Surgicel snow Surgeon:: Daniel Livingston MD BILLING COLLECTIONS SPECIALIST:: Jorge Hines Anesthesia: GETA Estimated blood loss (mL): 5 Operative findings:: same Operative note:: With the patient under general anesthetic after difficult intubation because of all the old clots in the oropharynx and hypopharynx, the nasal packing that had been placed in the ER was removed. There was an extensive amount of old blood clots in the left nasal fossa, the nose was thoroughly irrigated with saline and all of those clots were removed. There was some minimal(less than 5 cc from the posterior lateral aspect of the left nasal fossa) it was stopped with electrocautery of the posterior aspect of the left nasal fossa. There was extensive clots in the nasopharynx and multiple irrigation of the nasopharynx allowed the surgeon to remove all of those clots with the suction. There was extensive old blood clots in the oropharynx and hypopharynx and the throat was thoroughly irrigated with saline and all of those clots were removed. It was difficult for the anesthesiologist to place the endotracheal tube initially but the endotracheal tube was placed and remained in situ for all of the procedure. Once all of the clots had been removed and the oozing from the posterior aspect of the left nasal fossa controlled Surgicel snow was placed in the posterior lateral aspect of the left nasal fossa. Bacitracin ointment was placed in the nasal vestibules. Should note that the nasal fossa was initially decongested using topical cocaine cottonoids. All of the oozing was stopped. Intraoperative blood loss was less than 5 cc and completely stopped. The patient tolerated the procedure well and was sent to recovery in significant improved general condition. Condition: stable Disposition: PACU Complications:: none
--- NOTE | 2020-09-15 10:26 | HMH.ACPN2 ---
<Nanette Hanna - Last Filed: 09/15/20 10:26> Internal Medicine - PN: Subj *Date: 09/15/20 *Time: 10:26 Interval history: Patient was taken to surgery by Dr. Livingston, ENT, this morning 09/15/2020 for left nasal hemorrhage and removal of packing. She was also found to have blockage of the nasopharynx with blood clots and extensive old blood clots in the oral pharynx and hypopharynx. Dr. Livingston did remove the nasal packing and extensive blood clots in all areas. She tolerated the procedure well. He did note oozing from the posterior aspect of the left nasal fossa. Surgical snow was placed in the posterior nasal aspect of the left with bacitracin ointment placed in the nasal vestibules. Oozing was stopped also with electrocautery of the posterior aspect of the left nasal fossa. She tolerated the procedure well. At the time of this exam patient is in her room and is still drowsy from anesthesia. She denies discomfort. She is glad to have the packing out of her nose. Dressing over the nares is clean and dry. Color is satisfactory. Exam Vital signs and Labs for Last 24 Hours: Temp Pulse Resp BP Pulse Ox 97.3 F L 100 H 16 158/91 H 91 L 09/15/20 09:45 09/15/20 10:00 09/15/20 10:00 09/15/20 10:00 09/15/20 10:00 Laboratory Results - last 24 hr 09/14/20 13:54: POC Glucose 214 H I & O for Last 24 hours: Intake & Output 09/12/20 09/13/20 09/14/20 09/15/20 11:59 11:59 11:59 11:59 Intake Total 720 / 720 Output Total 50 / 50 Balance 670 / 670 Weight 266 lb - Constitutional no acute distress Comments: Easily awakened and speech is clear - *Routine HEENT Exam Comments: Nares with dressing applied anteriorly. Dressing is clean and dry. - *Routine Respiratory Exam Present: CTA bilaterally - *Routine Cardiovascular Exam Present: RRR - *Routine Abdominal Exam Present: soft, normoactive bowel sounds, tenderness - *Routine Extremities Exam Absent: edema - *Routine Neurological Exam Present: alert Assessment and Plan (1) Epistaxis Status: Acute Category: Medical Code(s): R04.0 - Epistaxis (2) Hypothyroidism Status: Acute Qualifiers: Hypothyroidism type: acquired Qualified Code(s): E03.9 - Hypothyroidism, unspecified Category: Medical Code(s): E03.9 - Hypothyroidism, unspecified (3) Factor 5 Leiden mutation, heterozygous Status: Chronic Category: Medical Code(s): D68.51 - Activated protein C resistance (4) Obstructive sleep apnea Status: Chronic Category: Medical Code(s): G47.33 - Obstructive sleep apnea (adult) (pediatric) (5) Iron deficiency anemia Status: Acute Category: Medical Code(s): D50.9 - Iron deficiency anemia, unspecified (6) Dementia Status: Chronic Category: Medical Code(s): F03.90 - Unspecified dementia without behavioral disturbance (7) History of CVA (cerebrovascular accident) Status: Chronic Category: Medical Code(s): Z86.73 - Personal history of transient ischemic attack (TIA), and cerebral infarction without residual deficits (8) Type 2 diabetes mellitus Status: Chronic Category: Medical Code(s): E11.9 - Type 2 diabetes mellitus without complications (9) emt intermediate (current) use of anticoagulants Status: Acute Category: Medical Code(s): Z79.01 - emt intermediate (current) use of anticoagulants - Assessment and plan all Dx Assessment and Plan for all problems:: Continue to monitor as she recovers. <Mustapha Best - Last Filed: 09/15/20 18:44> Internal Medicine - PN: Subj *Date: 09/15/20 *Time: 18:44 Exam Vital signs and Labs for Last 24 Hours: Temp Pulse Resp BP Pulse Ox 98.1 F 74 18 120/72 98 09/15/20 17:12 09/15/20 17:12 09/15/20 17:12 09/15/20 17:12 09/15/20 17:12 Laboratory Results - last 24 hr 09/15/20 11:19: WBC 8.2 D, RBC 4.80, Hgb 16.2, Hct 49.2 H, MCV 102.6 H, MCH 33.7 H, MCHC 32.9, RDW 13.5, Plt Count 141 L, MPV 8.9, Neut % (Auto)
--- NOTE | 2020-09-15 11:43 | HMH.PNCARD ---
Subjective Date: 09/15/20 Time: 11:00 Principal diagnosis: Epistaxis Interval history: 79-year-old female presented to the emergency room yesterday with complaints of increased epistaxes for the past few hours. Patient stated she was unable to get the bleeding to calm down. Patient has history of factor V Leiden deficiency with chronic Xarelto therapy. Patient denies chest pain tightness or pressure. Patient denies shortness of breath. Patient did undergo left posterior nasal cautery this morning by Dr. Livingston. Patient tolerated the procedure well. This was due to nasal hemorrhage. Patient is resting quietly with family at bedside. Patient still remains slightly sedated from the surgery this morning. No active nasal bleeding visually noted. Echocardiogram revealed Conclusion 1. Biatrial enlargement, normal left ventricular size, mild concentric left ventricular hypertrophy, visually estimated ejection fraction 55% with no regional wall motion abnormality, grade 1 diastolic dysfunction seen without tissue Doppler evidence of raise left atrial pressure. 2. Mildly enlarged right ventricle with normal contractility. 3. Mild mitral and tricuspid regurgitation. 4. No significant pericardial effusion noted. Discussed plan of care with Dr. Dumont. Recommend to restart the Xarelto 20 mg a day due to factor V Leiden deficiency. Thank you for letting cardiology participate in the care of this patient. Exam Vital signs and Labs for Last 24 Hours: Temp Pulse Resp BP Pulse Ox 97.0 F L 92 H 18 156/78 H 91 L 09/15/20 10:30 09/15/20 10:45 09/15/20 10:45 09/15/20 10:45 09/15/20 10:45 Laboratory Results - last 24 hr 09/14/20 13:54: POC Glucose 214 H I & O for Last 24 hours: Intake & Output 09/12/20 09/13/20 09/14/20 09/15/20 23:59 23:59 23:59 23:59 Intake Total 700 / 700 Output Total 50 / 50 Balance -30 / -30 700 / 700 Weight 266 lb - Constitutional no acute distress, morbidly obese, cooperative - *Routine HEENT Exam ENT: Present: mucous membranes moist - *Routine Neck Exam Present: full ROM, normal carotid upstroke. Absent: JVD, carotid bruit, lymphadenopathy - Routine Chest/Breast/Axilla Exam Chest wall: Present: tenderness. Absent: mass, pacemaker - *Routine Respiratory Exam Present: accessory muscle use, CTA bilaterally. Absent: wheezes, crackles - *Routine Cardiovascular Exam Present: RRR, Normal S1, Normal S2. Absent: irregular rhythm, JVD - *Routine Abdominal Exam Present: soft, normoactive bowel sounds. Absent: guarding - *Routine Extremities Exam Present: full ROM, pulses intact, normal capillary refill. Absent: edema - *Routine Skin Exam Present: intact, dry, warm - *Routine Neurological Exam Present: alert, oriented X3, CN II-XII intact, moving all extremities, normal speech - Routine Psychiatric Exam Present: normal affect, normal thought process, cooperative Progress Note: A&P (1) Epistaxis Status: Acute (2) Hypothyroidism Status: Acute (3) Factor 5 Leiden mutation, heterozygous Status: Chronic (4) Obstructive sleep apnea Status: Chronic (5) Iron deficiency anemia Status: Acute (6) Dementia Status: Chronic (7) History of CVA (cerebrovascular accident) Status: Chronic (8) Type 2 diabetes mellitus Status: Chronic (9) senior living (current) use of anticoagulants Status: Acute Assessment and Plan for All Diagnoses:: Plan: 1. Restart Xarelto 20mg daily for Factor V Leiden deficiency. 2. Please continue to monitor for any bleeding issues. 3. Please notify cardiology if patient's symptoms develop or persist.
[2020-09-15 11:50] LABS: INR 1.13 (0.9-1.1); Prothrombin Time 12.4 seconds (9.4-11.8)
[2020-09-15 11:54] LABS: Basophils % 0.1 % (0.1-2.0); Eosinophils # 0.1 K/mm3 (0.0-0.4); Eosinophils % 0.8 % (0.1-12.0); Hematocrit 49.2 % (37.0-47.0); Hemoglobin 16.2 g/dL (12.2-16.2); Lymphocytes # 0.6 K/mm3 (0.7-4.5); Lymphocytes % 7.6 % (10-50); Mean Corpuscular HGB Conc 32.9 g/dL (31.8-35.4); Mean Corpuscular Hemoglobin 33.7 pg (27.0-31.2); Mean Corpuscular Volume 102.6 fl (81-99); Mean Platelet Volume 8.9 fl (7.4-10.4); Monocytes # 0.3 K/mm3 (0.1-1.0); Monocytes % 3.6 % (1.7-9.3); Neutrophils # 7.2 K/mm3 (1.8-7.8); Neutrophils % 87.9 % (37.0-80.0); Platelet Count 141 K/mm3 (142-424); Red Cell Distribution Width 13.5 % (11.5-17.5); White Blood Count 8.2 K/mm3 (4.8-10.8)
[2020-09-15 11:58] LABS: MANUAL DIFFERENTIAL MANUAL DIFFERENTIAL (MANUAL DIFF)
--- NOTE | 2020-09-15 12:26 | PC.NURSE ---
1115 DR DONG AT BEDSIDE. TALKING WITH PATIENT AND HER FAMILY MEMBER ABOUT HER SURGERY. STATES PATIENT READY TO BE DISCHARGED FROM HIS STAND POINT.
[2020-09-15 12:27] LABS: Anion Gap 10.6 mEq/L (5-15); Blood Urea Nitrogen 17 mg/dl (7-17); Calcium 8.5 mg/dl (8.4-10.2); Carbon Dioxide 30 mmol/L (22.0-30.0); Chloride 100 mmol/L (98-107); Creatinine Clearance Estimated 87 mL/min (50-200); Estimated Glomerular Filt Rate 96 ml/min (>60); GFR (African American) 117 ML/MIN (>60); Glucose 198 mg/dl (74-100); Magnesium 1.8 mg/dl (1.6-2.3); Potassium 4.6 mmoL/L (3.5-5.1); Sodium 136 mmol/L (136-145)
[2020-09-15 13:39] LABS: Anisocytosis 1+; Lymphocytes % 5 % (10-50); Macrocytosis 1+; Monocytes % 1 % (2-9); Neutrophils % 94 % (42-76); Platelet Estimate Slight Decrease; Total Cells Counted 100
--- NOTE | 2020-09-15 13:59 | PC.NURSE ---
1345 chux and depends changed. patient placed on right tilt. patient tolerated well.
--- NOTE | 2020-09-15 14:37 | SUR.PHASEI ---
0845-Pt to pacu via bed having removal of nasal packing and control of nasal hemorrhage. Report received from Oscar CHEUNG and Kofi SHIRLEY. Pt is awake but restless in bed. HOB raised to 45 degrees. Respirations are easy and unlabored. Pt coughing and c/o nausea. Cold air blown on pt via bear hugger. HR is tachycardiac per monitor and pt is hypertensive. CRYSTAL SLICER aware. No new orders received. Depend in place and dry. 0855-Pt continues to be restless in bed. Ice chips given to pt for comfort pain measures. 0905- pt resting off and on but remains somewhat restless. Pt drifts off to sleep then shakes and wakes up. Warm blankets and stacy hugger placed on pt. 0910-Pt repositioned in bed per Darci and Malu. Pillow placed under right leg per pt request. 0920-Pt resting more comfortably. Decrease in blood pressure and heart rate noted. Pt noted to not be as anxious and able to rest more comfortably. 0935-Detailed report called to Juels CHEUNG. Pt transported via stretcher to OB unit per Darci CHEUNG & Malu. Left in the care of Jules @ bedside.
--- NOTE | 2020-09-15 16:42 | PC.NURSE ---
PT HAS RESTED WELL THIS SHIFT. NO ACTIVE NASAL BLEEDING. NASAL DRESSING REMOVED PER DR DONG. PT REFUSED BATH AFTER SURGERY. HAS SLEPT MOST OF THIS SHIFT. VITAL SIGN STABLE. HEART RATE REGULAR, EDEMA NOTED TO BILATERAL ARMS, PT REPORTS THAT THIS IS HER NORMAL. LUNGS SOUNDS CLEAR THROUGHOUT LUNG FIELD. ACTIVE BOWEL SOUNDS X4 QUADS. VOIDS PER ATTENDS. PT BEDFAST, TURNED EVERY 2 HOURS. NO SKIN BREAKDOWN. A&O X 4 . IV PATENT OF 22 GAUGE IN LEFT HAND WITH NS AT 50 ML/HR.. PT WITH CHRONIC PAIN, HOWEVER DUE TO SLEEPINESS THIS SHIFT, PAIN MEDICATIONS HELD. REFUSES FSBS THIS SHIFT, MOE STANFORD MADE AWARE. PT WITHOUT NEEDS OR CONCERNS. CALL LIGHT WITHIN REACH, SISTER REMAINS AT BEDSIDE.
--- NOTE | 2020-09-15 17:09 | PC.NURSE ---
attends changed at this time. jessenia care. patient removed from right tilt at this time. sit up high fowlers for dinner. tv turned onto news per patient request at this time. bed placed in low position and locked and call bed with in reach. lights dimmed per patient request. sister at bedside at this time.
--- NOTE | 2020-09-15 18:54 | PC.NURSE ---
report given nikki garcia rn
[2020-09-16 04:35] VITALS: BP 132/72; PULSE 70; RESP 18; TEMP 36.9; O2SAT 95
--- NOTE | 2020-09-16 04:40 | PC.NURSE ---
PT HAS RESTED WELL THIS SHIFT, NO EPISTAXIS, VITAL SIGNS STABLE, LUNGS CTAB, A&O X 4. ABD SOFT, BOWEL SOUNDS ACTIVE X 4 QUADS, NON TENDER. VOIDS PER ATTENDS. PT CHANGED AND TURNED EVERY 2 HOURS. NO ACUTE CHANGES FROM BEGINNING SHIFT ASSESSMENT. CALL LIGHT WITHIN REACH.
[2020-09-16 07:35] LABS: Hematocrit 45.2 % (37.0-47.0); Hemoglobin 14.8 g/dL (12.2-16.2)
[2020-09-16 08:05] VITALS: BP 109/53; PULSE 73; RESP 20; TEMP 36.8; O2SAT 96
--- NOTE | 2020-09-16 08:23 | HMH.ACPN2 ---
<Nanette Hanna - Last Filed: 09/16/20 08:23> Internal Medicine - PN: Subj *Date: 09/16/20 *Time: 08:23 Interval history: Patient is anxious to return to [facility]. She states she did not sleep last night. She is voiding QS. She states her throat feels full but without blood. She has nasal congestion. Nurses states she has had no further nasal bleeding. Repeat lab work today shows a hemoglobin of 14.8 and hematocrit of 45.2. Exam Vital signs and Labs for Last 24 Hours: Temp Pulse Resp BP Pulse Ox 98.4 F 70 18 132/72 95 09/16/20 04:35 09/16/20 04:35 09/16/20 04:35 09/16/20 04:35 09/16/20 04:35 Laboratory Results - last 24 hr 09/15/20 11:19: WBC 8.2 D, RBC 4.80, Hgb 16.2, Hct 49.2 H, MCV 102.6 H, MCH 33.7 H, MCHC 32.9, RDW 13.5, Plt Count 141 L, MPV 8.9, Neut % (Auto) 87.9 H, Lymph % (Auto) 7.6 L, [place] % (Auto) 3.6, Eos % (Auto) 0.8, Baso % (Auto) 0.1, Neut # (Auto) 7.2, Lymph # (Auto) 0.6 L, [place] # (Auto) 0.3, Eos # (Auto) 0.1, Baso # (Auto) 0.0, Total Counted 100, Neutrophils % (Manual) 94 H, Lymphocytes % (Manual) 5 L, Monocytes % (Manual) 1 L, Platelet Estimate Slight decrease, Anisocytosis 1+, Macrocytosis 1+ 09/15/20 11:19: PT 12.4 H, INR 1.13 H 09/15/20 11:19: Sodium 136, Potassium 4.6, Chloride 100, Carbon Dioxide 30, Anion Gap 10.6, BUN 17 D, Creatinine 0.60 D, Estimated Creat Clear 87, Estimated GFR 96, Est GFR ( Amer) 117 D, Glucose 198 H, Calcium 8.5, Magnesium 1.8 09/16/20 06:40: Hgb 14.8, Hct 45.2 I & O for Last 24 hours: Intake & Output 09/13/20 09/14/20 09/15/20 09/16/20 11:59 11:59 11:59 11:59 Intake Total 720 / 720 480 / 480 Output Total 50 / 50 Balance 670 / 670 480 / 480 Weight 266 lb - Constitutional no acute distress Comments: Sitting up in the bed and is eating her breakfast. - *Routine Respiratory Exam Present: CTA bilaterally (Anteriorly and posteriorly) - *Routine Cardiovascular Exam Present: RRR - *Routine Abdominal Exam Present: soft, normoactive bowel sounds. Absent: tenderness - *Routine Extremities Exam Absent: edema, calf tenderness - *Routine Neurological Exam Present: alert, oriented X3 Assessment and Plan (1) Epistaxis Status: Acute Category: Medical Code(s): R04.0 - Epistaxis (2) Hypothyroidism Status: Acute Qualifiers: Hypothyroidism type: acquired Qualified Code(s): E03.9 - Hypothyroidism, unspecified Category: Medical Code(s): E03.9 - Hypothyroidism, unspecified (3) Factor 5 Leiden mutation, heterozygous Status: Chronic Category: Medical Code(s): D68.51 - Activated protein C resistance (4) Obstructive sleep apnea Status: Chronic Category: Medical Code(s): G47.33 - Obstructive sleep apnea (adult) (pediatric) (5) Iron deficiency anemia Status: Acute Category: Medical Code(s): D50.9 - Iron deficiency anemia, unspecified (6) Dementia Status: Chronic Category: Medical Code(s): F03.90 - Unspecified dementia without behavioral disturbance (7) History of CVA (cerebrovascular accident) Status: Chronic Category: Medical Code(s): Z86.73 - Personal history of transient ischemic attack (TIA), and cerebral infarction without residual deficits (8) Type 2 diabetes mellitus Status: Chronic Category: Medical Code(s): E11.9 - Type 2 diabetes mellitus without complications (9) retirement (current) use of anticoagulants Status: Acute Category: Medical Code(s): Z79.01 - exterminator helper termite (current) use of anticoagulants - Assessment and plan all Dx Assessment and Plan for all problems:: Patient will return to [facility] today. See discharge summary <Mustapha Best - Last Filed: 09/16/20 12:10> Internal Medicine - PN: Subj *Date: 09/16/20 *Time: 12:09 Exam Vital signs and Labs for Last 24 Hours: Temp Pulse Resp BP Pulse Ox 98.2 F 73 20 109/53 L 96 09/16/20 08:05 09/16/20 08:05 09/16/20 08:05 09/16/20 08:05 09/16/20 08:05
--- NOTE | 2020-09-16 09:28 | HMH.DCSUM ---
General - General Admission date:: 09/14/20 <Mustapha Best - 09/16/20 12:11> 09/14/20 <JacquesNanette - 09/16/20 09:45> Discharge date: 09/16/20 <HannaNanette wheat - 09/16/20 09:45> HPI HPI: Ms. 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 They did try placing 2 super tampons in each nostril without resolution of the nose bleed. Thus she was brought to the emergency room. In the emergency room with evaluation hemoglobin was found to be 16.6 with hematocrit of 51.9. Blood chemistries showed normal potassium and sodium with a BUN of 24 and creatinine 0.8. Blood sugar was 140. Liver function studies were normal. aPTT was low at 22.1. Chest x-ray revealed mild atelectatic or fibrotic changes and was otherwise negative. Patient had nasal cocaine instilled and received fluid boluses. She also had morphine sulfate and Zofran for nausea. She also had Afrin nasal spray x1. Patient was seen by Dr. Livingston, ENT, who noted that ER physician placed a rocket in the left nasal fossa with moderately good control of the hemorrhage which had extended postnasally. She also had a surgical gauze packing in the right nasal fossa that was under good control. There was minimal amount of postnasal continued bleeding but no active hemorrhaging. He stated the remainder of the head and neck exam was normal. Due to the fact that she continued with some bleeding and that she had been off her Xarelto for at least 24 hours, he recommended that she be taken to the OR for removal of the packings and to try to control the hemorrhage more effectively. She was scheduled at that time for the procedure to be performed at 730 AM on 09/15 under general anesthesia. He felt that he could attempt to control the problem completely. Otherwise he felt that she would continue to ooze around the packing. At the time of this exam patient does not appear to be actively bleeding. She states she does have some blood in the back of her throat. This has made it most difficult for her to eat and drink. She is currently examined in the emergency room awaiting admission to a hospital bed. <Nanette Hanna - 09/16/20 09:45> Hospital Course Hospital Course: Patient had no acute bleeding after admission. She was taken to surgery by Dr. Livingston, ENT, a.m. of 09/15/2020 for the left nasal hemorrhage and removal of packing. She was also found to have blockage of the nasopharynx with blood clots and extensive clots in the oropharynx and hypopharynx. Dr. Livingston did remove the nasal packing and the extensive blood clots in all areas. She tolerated the procedure well. All the oozing was stopped. Surgical snow was placed in the posterior nasal aspect and bacitracin ointment placed. Oozing was stopped also with the use of electrocautery of the posterior aspect of the left nasal fossa. After her procedure she remained drowsy for a while but then was able to eat without difficulty. She did eat dinner. She denied discomfort and was able to swallow once the blood had been removed. Nasal orifices remain clean and dry. On 09/16/2020 patient was feeling much better. Again she was able to eat without difficulty. Hemoglobin /hematocrit remained stable. She was ready to go back to [facility]. Patient was discharged back to [facility] in stable and satisfactory condition
[2020-09-16 10:31] LABS: Adenovirus,PCR Not Detected (NotDetected); Bordetella Pertussis Not Detected (NotDetected); Chlamydophila Pneumoniae, PCR Not Detected (NotDetected); Coronavirus 19, PCR Not Detected (NotDetected); Coronavirus 229E Not Detected (NotDetected); Coronavirus NL63 Not Detected (NotDetected); Coronavirus OC43 Not Detected (NotDetected); Coronovirus HKU1,PCR Not Detected (NotDetected); Human Metapneumovirus Not Detected (NotDetected); Influenza A, PCR Not Detected (NotDetected); Influenza AH1, 2009 Not Detected (NotDetected); Influenza AH1, PCR Not Detected (NotDetected); Influenza AH3,PCR Not Detected (NotDetected); Influenza B, PCR Not Detected (NotDetected); Mycoplasma Pneumoniae, PCR Not Detected (NotDetected); Parainfluenza 1, PCR Not Detected (NotDetected); Parainfluenza 2, PCR Not Detected (NotDetected); Parainfluenza 3, PCR Not Detected (NotDetected); Parainfluenza 4, PCR Not Detected (NotDetected); Respiratory Syncytial Virus Not Detected (NotDetected); Rhinovirus/Enterovirus Not Detected (NotDetected)
--- NOTE | 2020-09-16 10:50 | PC.NURSE ---
ASSESSMENT DONE AT THIS TIME. NO NEEDS VOICED.
--- NOTE | 2020-09-16 11:30 | PC.NURSE ---
Staff x2 changed brief and also did a complete bed change at this time. Tolerated well. Fresh cup of coffee provided. Pt now sitting up in bed watching tv.
--- NOTE | 2020-09-16 12:40 | PC.NURSE ---
[facility] notified of need for transfer back to [place].
[2020-09-16 12:50] LABS: POC Glucose,Bedside 134 (70-110)
--- NOTE | 2020-09-16 15:07 | PC.NURSE ---
[facility] notified of need for transport to [place].
--- NOTE | 2020-09-16 15:32 | PC.NURSE ---
[facility] service here to pick up driver pt for transport back to [place].
--- NOTE | 2020-09-16 15:39 | PC.NURSE ---
Pt leaving facility via EMS at this time via stretcher.
--- NOTE | 2020-09-17 21:22 | P.PN_ITS ---
[facility] Anesthesia Record Part II Discharge Time: 09:35 Destination: Medical Surgical Department PACU nurse assessment reviewed?: Yes Patient Condition:: Good Anesthesia Complications:: None Swallowing reflex intact?: Yes Cyanosis?: No Blood Pressure: 139/70 Pulse Rate: 106 Temperature: 97.5 F Mental Status: Alert & Oriented Pain level:: 0 Nausea and/or vomitting:: None Intake, IV Amount: 0
[2020-09-17 21:23] VITALS: BP 139/70; PULSE 106; TEMP 36.4
== END 2020-09-16 15:47 ==
LOC: ER 13:39 → 2ND 13:50 → OB 09-15 06:08 → 2ND 09-15 07:24
PROVIDERS: Otolaryngology; Admitting Provider Family Medicine; Emergency Provider Emergency Medicine; PCP Family Medicine; Visit Provider Family Medicine
PROC: (CPT 30905; principal; 2020-09-15 07:30)
DX: R04.0 Epistaxis (principal); D50.9 Iron deficiency anemia, unspecified; E03.9 Hypothyroidism, unspecified; E11.9 Type 2 diabetes mellitus without complications; E78.5 Hyperlipidemia, unspecified; Z79.01 Long term (current) use of anticoagulants; D68.51 Activated protein C resistance; Z79.899 Other long term (current) drug therapy
CPT/HCPCS: 30905; 36415; 71045; 80048; 80053; 82962; 83735; 85007; 85014; 85018; 85025; 85610; 85730; 86328; 87581; 87633; 87798; 93306; 96374; 96376; 99284; G0378; J2405; J2710; U0003

== ENCOUNTER 2020-10-21 10:19 | Outpatient (CLI) | payer MEDICARE, MEDICAID, SELFPAY ==
[2020-10-21] VITALS (8 sets, daily range): BP systolic 98–128; BP diastolic 65–68; PULSE 62–71; RESP 18; TEMP 37.1; O2SAT 18–92
== END 2020-10-21 13:32 | disposition home or self-care (01) ==
PROVIDERS: PCP Family Medicine; Visit Provider Family Medicine
DX: U07.1 COVID-19 (principal)
CPT/HCPCS: 96365

== ENCOUNTER 2021-03-16 08:17 | Day surgery (SDC) | payer MEDICARE, MEDICAID, SELFPAY ==
[2021-03-09 10:59] VITALS: BMI 39.7
[2021-03-16 08:41] VITALS: BP 120/74; PULSE 67; RESP 18; TEMP 36.6; O2SAT 91
[2021-03-16 08:56] LABS: POC Glucose,Bedside 165 (70-110)
[2021-03-16 09:53] VITALS: BP 120/57; PULSE 59; RESP 18; O2SAT 94
[2021-03-16 09:58] VITALS: BP 123/58; PULSE 61; RESP 18; O2SAT 95
[2021-03-16 10:03] VITALS: BP 121/60; PULSE 62; RESP 18; O2SAT 98
[2021-03-16 10:08] VITALS: BP 122/56; PULSE 60; RESP 18; O2SAT 97
[2021-03-16 10:10] VITALS: BP 117/64; PULSE 58; RESP 16; TEMP 36.6; O2SAT 98
== END 2021-03-16 10:14 | disposition home or self-care (01) ==
LOC: OR 08:22
PROVIDERS: PCP Family Medicine; Visit Provider Ophthalmology
DX: H25.813 Combined forms of age-related cataract, bilateral (principal); H02.834 Dermatochalasis of left upper eyelid; H02.831 Dermatochalasis of right upper eyelid; F41.9 Anxiety disorder, unspecified; M19.90 Unspecified osteoarthritis, unspecified site; E03.9 Hypothyroidism, unspecified; Z86.73 Personal history of transient ischemic attack (TIA), and cerebral infarction without residual deficits; D64.9 Anemia, unspecified; G47.33 Obstructive sleep apnea (adult) (pediatric); Z95.828 Presence of other vascular implants and grafts; Z79.01 Long term (current) use of anticoagulants; Z79.899 Other long term (current) drug therapy
CPT/HCPCS: 66984; 82962; V2632

== ENCOUNTER → 2021-03-23 09:32 | Outpatient (POV) | payer MEDICARE, MEDICAID, SELFPAY | PROVIDERS: Visit Provider Dermatology | DX: Z00.00 Encounter for general adult medical examination without abnormal findings (principal) ==

== ENCOUNTER 2021-03-30 08:04 | Day surgery (SDC) | payer MEDICARE, MEDICAID, SELFPAY ==
[2021-03-30] VITALS (7 sets, daily range): BP systolic 117–137; BP diastolic 55–76; PULSE 60–69; RESP 18–20; TEMP 36.1–36.5; O2SAT 92–99; BMI 39.9
[2021-03-30 08:52] LABS: POC Glucose,Bedside 154 (70-110)
== END 2021-03-30 10:20 | disposition home or self-care (01) ==
LOC: OR 08:04
PROVIDERS: PCP Family Medicine; Visit Provider Ophthalmology
DX: H25.813 Combined forms of age-related cataract, bilateral (principal); H02.834 Dermatochalasis of left upper eyelid; H02.831 Dermatochalasis of right upper eyelid; F41.9 Anxiety disorder, unspecified; M19.90 Unspecified osteoarthritis, unspecified site; E03.9 Hypothyroidism, unspecified; Z88.8 Allergy status to other drugs, medicaments and biological substances; E11.9 Type 2 diabetes mellitus without complications; E78.5 Hyperlipidemia, unspecified; D68.51 Activated protein C resistance; Z86.69 Personal history of other diseases of the nervous system and sense organs; Z79.899 Other long term (current) drug therapy
CPT/HCPCS: 66984; 82962; V2632

== ENCOUNTER → 2021-04-20 09:01 | Outpatient (POV) | payer MEDICARE, MEDICAID, SELFPAY | PROVIDERS: Visit Provider Dermatology | DX: Z00.00 Encounter for general adult medical examination without abnormal findings (principal) ==

== ENCOUNTER → 2021-05-20 10:26 | Outpatient (CLI) | payer MEDICARE, MEDICAID, SELFPAY ==
--- NOTE | 2021-05-20 10:30 | MM_ITS ---
PROCEDURE: MM DIG MAMM BI DX W/CAD Digital Breast Tomosynthesis Included Right breast ultrasound complete CLINICAL INDICATION: PALPABLE LT BREAST NODULE AND PAIN COMPARISON: US US BREAST LT COMPLETE from 05/20/2021 TECHNIQUE: Standard images performed along with right breast ultrasound FINDINGS: Mostly rib fatty replaced fibroglandular tissue. There are bilateral benign-appearing calcifications. Right breast: Unremarkable. Left breast: A spiculated stellate mass is present in the upper outer aspect of the left breast measuring 2.7 by 2.3 cm. There is skin retraction. Spiculations extend anteriorly and posteriorly. The posterior spiculations are not completely delineated due to difficulty in positioning the patient. Left breast ultrasound: There is a solid 2.3 by 1.7 x 1.7 cm stellate mass in the outer aspect of the left breast at 1 o'clock with posterior acoustical shadowing taller than wide highly suspicious for malignancy. IMPRESSION: Spiculated mass 2.7 x 2.3 cm in the upper outer left breast posterior 1/3 highly suspicious for malignancy.. Suggest ultrasound-guided biopsy for further evaluation. MRI may be of further value to assure there is no anterior chest wall invasion if the biopsy is positive.. BI-RAD Category: 5 Highly Suggestive Of Malignancy FOLLOW-UP: BIO Biopsy Recommended (A letter has been sent to the patient regarding results of the study.) Dictated by: Malcolm Calixto MD 05/25/2021 12:46 Malcolm Calixto MD in [place] 05/25/2021 12:46
== END ==
PROVIDERS: PCP Family Medicine; Visit Provider Family Medicine
DX: N63.21 Unspecified lump in the left breast, upper outer quadrant (principal); N64.4 Mastodynia
CPT/HCPCS: 76641; 77062; 77066; G0279

== ENCOUNTER → 2021-06-09 09:25 | Outpatient (CLI) | payer MEDICARE, MEDICAID, SELFPAY ==
--- NOTE | 2021-06-09 | MM_ITS ---
PROCEDURE: US MAMMOTOME BX LT CLINICAL INDICATION: ABN MAMM Left breast mass COMPARISON: MG MM DIG MAMM BI DX W/CAD from 05/20/2021 MG MM CLIP PLACEMENT LT from 06/09/2021 FINDINGS: Following obtaining informed consent and time-out procedure under aseptic conditions and local anesthesia with 1 percent buffered lidocaine and deeper anesthesia with lidocaine mixed with epinephrine, 9 gauge mammotome needle inserted into the left breast mass at 1 o'clock and multiple mammotome biopsies were obtained. A clip was then placed and deemed to be in good position. The patient tolerated the procedure well without evidence of immediate complications. Pathology: Invasive ductal carcinoma Mammo clip placement: Post biopsy changes are present in the deep upper outer left breast in the region of the spiculated mass with the clip noted along the anterior aspect of the mass. IMPRESSION: Status post ultrasound-guided mammotome biopsy of the left breast showing invasive ductal carcinoma. No mediate complications. Surgical consult suggested. Dictated by: Malcolm Calixto MD 06/21/2021 11:02 Malcolm Calixto MD in [facility] 06/21/2021 11:02
== END ==
PROVIDERS: PCP Family Medicine; Visit Provider Family Medicine
DX: R92.8 Other abnormal and inconclusive findings on diagnostic imaging of breast (principal)
CPT/HCPCS: 19083; 77065; 88305; 88342; 88360; C2618

== ENCOUNTER → 2021-07-13 09:30 | Outpatient (CLI) | payer MEDICARE, MEDICAID, SELFPAY ==
--- NOTE | 2021-07-13 09:30 | US_ITS ---
PROCEDURE: US FNA BREAST CLINICAL INDICATION: LT BREAST CA,NODULES COMPARISON: US US BREAST LT COMPLETE from 05/20/2021 TECHNIQUE: Following obtaining informed consent, using aseptic technique and local anesthesia with buffered lidocaine, fine-needle aspiration was performed of the largest axillary node using sonographic guidance. 3 passes were made into the nodule with a 20 gauge spinal needle. Specimen was given to cytology. The patient tolerated the procedure well without evidence of immediate complications and left the ultrasound suite in stable condition. FINDINGS: CYTOLOGY: Malignant, consistent with metastatic carcinoma IMPRESSION: Uneventful ultrasound-guided FNA of a left axillary node showing metastatic carcinoma Dictated by: Malcolm Calixto MD 07/14/2021 18:03 Malcolm Calixto MD in [facility] 07/14/2021 18:03
== END ==
PROVIDERS: PCP Family Medicine; Visit Provider Surgery
DX: C50.912 Malignant neoplasm of unspecified site of left female breast (principal)
CPT/HCPCS: 10005; 88173

== ENCOUNTER 2022-01-28 18:22 | Emergency (ER) | payer MEDICARE, MEDICAID, SELFPAY ==
[2022-01-28 19:30] VITALS: BP 113/74; PULSE 81; O2SAT 90
[2022-01-28 19:39] VITALS: BP 117/85; PULSE 85; RESP 18; TEMP 37.1; O2SAT 94; BMI 37.6
--- NOTE | 2022-01-28 19:46 | ECG_ITS ---
APPROVED REPORT Exam: Resting ECG HR:84 bpm ECG Measurements Heart Rate 84 AXES CO 172 P 51 QRSd 88 QRS -9 QT 384 T 44 QTc 425 Conclusion SINUS RHYTHM LOW QRS VOLTAGE IN PRECORDIAL LEADS [QRS DEFLECTION < 1.0 mV IN CHEST LEADS] BORDERLINE ECG UNCONFIRMED REPORT Electronically signed by : Morro Jason MD 01/29/2022 12:07:32
--- NOTE | 2022-01-28 19:51 | XR_ITS ---
PROCEDURE INFORMATION: Exam: XR Chest Exam date and time: 01/28/2022 8:01 PM Age: 81 years old Clinical indication: Pain; Chest pressure TECHNIQUE: Imaging protocol: XR of the chest. Views: 1 view. COMPARISON: SD XR CHEST PORTABLE 09/14/2020 8:23 PM FINDINGS: Lungs: Bibasilar interstitial opacities may represent cardiogenic versus noncardiogenic pulmonary edema in the appropriate clinical setting. Pleural spaces: Low lung volumes are present without large pleural effusions or consolidations. Heart/Mediastinum: Unremarkable. No cardiomegaly. Bones/joints: Unremarkable. IMPRESSION: Low lung volumes are present without large pleural effusions or consolidations. Bibasilar interstitial opacities may represent cardiogenic versus noncardiogenic pulmonary edema in the appropriate clinical setting.
[2022-01-28 19:57] LABS: Basophils # 0.1 K/mm3 (0-0.2); Basophils % 1.1 % (0.1-2.0); Eosinophils # 0.1 K/mm3 (0.0-0.4); Hemoglobin 16.4 g/dL (12.2-16.2); Lymphocytes # 1.3 K/mm3 (0.7-4.5); Lymphocytes % 25.7 % (10-50); Mean Corpuscular HGB Conc 31.5 g/dL (31.8-35.4); Mean Corpuscular Hemoglobin 34.3 pg (27.0-31.2); Mean Corpuscular Volume 108.9 fl (81-99); Mean Platelet Volume 9.5 fl (7.4-10.4); Monocytes # 0.3 K/mm3 (0.1-1.0); Monocytes % 5.2 % (1.7-9.3); Neutrophils # 3.3 K/mm3 (1.8-7.8); Neutrophils % 66.1 % (37.0-80.0); Platelet Count 129 K/mm3 (142-424); Red Blood Count 4.77 M/mm3 (4.20-5.40); Red Cell Distribution Width 13.6 % (11.5-17.5); White Blood Count 4.9 K/mm3 (4.8-10.8)
[2022-01-28 20:00] VITALS: BP 117/85; PULSE 80; O2SAT 90
--- NOTE | 2022-01-28 20:00 | CT_ITS ---
PROCEDURE INFORMATION: Exam: CT Abdomen And Pelvis With Contrast Exam date and time: 01/28/2022 8:23 PM Age: 81 years old Clinical indication: Abdominal pain; Generalized; Prior surgery; Surgery date: 6+ months; Surgery type: Hysterectomy lumbar spine TECHNIQUE: Imaging protocol: Computed tomography of the abdomen and pelvis with contrast. Radiation optimization: All CT scans at this facility use at least one of these dose optimization techniques: automated exposure control; mA and/or kV adjustment per patient size (includes targeted exams where dose is matched to clinical indication); or iterative reconstruction. Contrast material: ISOVUE; Contrast volume: 75 ml; Contrast route: IV; COMPARISON: CR HIPCMRT XR hip RT 2-3V w/pelvis 11/23/2018 9:49 AM FINDINGS: Liver: There is diffuse hypoattenuation of the liver compatible with moderate hepatic steatosis. Gallbladder and bile ducts: Gallbladder is decompressed limiting its examination. Pancreas: Normal. No ductal dilation. Spleen: Normal. No splenomegaly. Adrenal glands: Normal. No mass. Kidneys and ureters: Normal. No hydronephrosis. Stomach and bowel: Unremarkable. No obstruction. No mucosal thickening. Appendix: The appendix is not definitely identified, but there are no primary or secondary CT findings to suggest a diagnosis of acute appendicitis. Intraperitoneal space: Unremarkable. No free air. No significant fluid collection. Arteries: Moderate calcific atherosclerotic disease of the abdominal aorta without aneurysmal dilatation is present. Lymph nodes: Unremarkable. No enlarged lymph nodes. Urinary bladder: Unremarkable as visualized. Reproductive: The uterus appears surgically absent. Bones/joints: Postsurgical changes compatible with posterior fusion with transpedicular screws, and vertical stabilizing bars between levels L2 through S1. Chronic appearing compression fracture of T12 the approximately 70% loss of height. Moderate to severe loss of intervertebral disc space with degenerative changes at multiple levels of the lower thoracic lumbar spine. Grade 1 anterolisthesis of L5 over S1 secondary to degenerative changes. Soft tissues: Normal. IMPRESSION: No acute findings.
[2022-01-28 20:08] LABS: Alanine Aminotransferase 37 U/L (12-78); Albumin Level 3.7 g/dl (3.5-5.0); Albumin/Globulin Ratio 1.3 (1.1-1.8); Alkaline Phosphatase 50 U/L (38-126); Amylase 74 U/L (30-110); Anion Gap 9.4 mEq/L (5-15); Aspartate Amino Transferase 47 U/L (14-36); Bilirubin,Total 0.7 mg/dl (0.2-1.3); Blood Urea Nitrogen 22 mg/dl (7-17); Calcium 8.4 mg/dl (8.4-10.2); Carbon Dioxide 33 mmol/L (22.0-30.0); Chloride 100 mmol/L (98-107); Creatinine Clearance Estimated 85 mL/min (50-200); Estimated Glomerular Filt Rate 80 ml/min (>60); GFR (African American) 97 ML/MIN (>60); Globulin 2.8 g/dL (1.3-3.2); Glucose 272 mg/dl (74-100); Lipase 170 U/L (23-300); Potassium 4.4 mmoL/L (3.5-5.1); Sodium 138 mmol/L (136-145); Total Protein,Serum 6.5 g/dl (6.3-8.2)
[2022-01-28 20:14] LABS: C-Reactive Protein 5.4 mg/L (0-4)
[2022-01-28 20:17] LABS: Microscopic, Urine URINE MICROSCOPIC (MICROSCOPIC)
[2022-01-28 20:20] LABS: Appearance,Urine SL CLOUDY (Clear); Bilirubin,Urine Negative (Negative); Blood, Urine TRACE-I (Negative); Color,Urine YELLOW (Yellow); Glucose,Urine (UA) Negative (Negative); Ketones,Urine TRACE (Negative); Leukocyte Esterase,Urine 1+ (Negative); Nitrate,Urine Negative (Negative); PH,Urine 7.5 (5.0-8.5); Protein,Urine Negative (Negative); Specific Gravity, Urine 1.015 (1.005-1.030)
[2022-01-28 20:23] LABS: Troponin I < 0.01 ng/ml (0.00-0.034)
[2022-01-28 20:24] LABS: WBC,Urine 20-50 #/hpf (0-3)
[2022-01-28 20:25] LABS: Erythrocyte Sedimentation Rate 14 mm/hr (0-30)
[2022-01-28 20:27] LABS: Procalcitonin 0.067 ng/mL (0.0-2.0)
--- NOTE | 2022-01-28 20:58 | HMH.EDGENADL ---
ED Disposition Clinical Impression: UTI (urinary tract infection) Qualifiers: Urinary tract infection type: site unspecified Hematuria presence: without hematuria Qualified Code(s): N39.0 - Urinary tract infection, site not specified Disposition: Home, Self-Care Condition on Discharge: Good Instructions: DI for Urinary Tract Infection (UTI) Additional Instructions: fluids and see pcp for follow up and urine culture results Prescriptions: cephALEXin [cephALEXin 500mg capsule*] 500 mg PO TID #30 cap Transmission Status: Pending to [facility] - Critical Care Critical Care Time: No Attestation: On 01/28/22, the high probability of a clinically significant, sudden or life threatening deterioration of the following system(s) required my full and direct attention, intervention and personal management. The time I documented below is in addition to time spent performing reported procedures but includes the following listed in this critical care notation. Medical Decision Making - Medical Records Medical records reviewed: Yes: I reviewed the patient's medical records. - [place]vin Inquiry Pt receiving controlled substance: No Vital Signs: 01/28/22 19:30 01/28/22 19:39 01/28/22 20:00 Temperature 98.8 F Temperature Source Oral Pulse Rate 81 80 Pulse Rate [Left Radial] 85 Respiratory Rate 18 Blood Pressure 113/74 117/85 Blood Pressure [Right Arm] 117/85 Blood Pressure Mean [Right Arm] 95 02 Sat by Pulse Oximetry 90 L 94 L 90 L Oxygen Delivery Method Room Air Room Air Room Air 01/28/22 21:00 01/28/22 21:30 Temperature Temperature Source Pulse Rate 73 69 Pulse Rate [Left Radial] Respiratory Rate Blood Pressure 131/66 124/65 Blood Pressure [Right Arm] Blood Pressure Mean [Right Arm] 02 Sat by Pulse Oximetry 90 L 92 L Oxygen Delivery Method Room Air Room Air - Lab Data Lab results reviewed: Yes: I reviewed the patient's lab results. Lab Results 01/28/22 19:42: WBC 4.9, RBC 4.77, Hgb 16.4 H, Hct 52.0 H, MCV 108.9 H, MCH 34.3 H, MCHC 31.5 L, RDW 13.6, Plt Count 129 L, MPV 9.5, Neut % (Auto) 66.1, Lymph % (Auto) 25.7, [place] % (Auto) 5.2, Eos % (Auto) 2.0, Baso % (Auto) 1.1, Neut # (Auto) 3.3, Lymph # (Auto) 1.3, [place] # (Auto) 0.3, Eos # (Auto) 0.1, Baso # (Auto) 0.1 01/28/22 19:42: Sodium 138, Potassium 4.4, Chloride 100, Carbon Dioxide 33 H, Anion Gap 9.4, BUN 22 H, Creatinine 0.70, Estimated Creat Clear 85, Estimated GFR 80, Est GFR ( Amer) 97, Glucose 272 H, Calcium 8.4, Total Bilirubin 0.7, AST 47 H, ALT 37, Alkaline Phosphatase 50, Troponin I < 0.01, C-Reactive Protein 5.4 H, Total Protein 6.5, Albumin 3.7, Globulin 2.8, Albumin/Globulin Ratio 1.3, Amylase 74 01/28/22 19:42: ESR 14 01/28/22 19:42: Lipase 170, Procalcitonin 0.067 01/28/22 20:10: Urine Color Yellow, Urine Appearance Sl cloudy, Urine pH 7.5, Ur Specific [place] 1.015, Urine Protein Negative, Urine Glucose (UA) Negative, Urine Ketones Trace, Urine Blood Trace-i, Urine Nitrate Negative, Urine Bilirubin Negative, Urine Urobilinogen 1.0, Ur Leukocyte Esterase 1+ A, Urine RBC 3-5, Urine WBC 20-50, Ur Squamous Epith Cells 5-10 01/28/22 21:13: Lactate 2.1 Result diagrams: 01/28/22 19:42 01/28/22 19:42 Orders (Tests/Meds): ED MEDICATIONS Generic Name Dose Route Start Last Admin Trade Name Freq PRN Reason Stop Dose Admin Sodium Chloride 1,000 mls @ 999 mls/hr 01/28/22 20:15 01/28/22 20:08 Sod Chlor 0.9% 1000ml Bag IV 01/28/22 21:15 Not Given .Q1H1M SARAH Lactated Ringer's 1,000 mls @ 999 mls/hr 01/28/22 20:15 01/28/22 20:10 Lactated Ringer's 1000 Ml Bag IV 01/28/22 21:15 999 mls/hr .Q1H1M SARAH Administration Ceftriaxone Sodium 1 gm/ 50 mls @ 100 mls/hr 01/28/22 21:15 01/28/22 21:20 Sodium Chloride IV 02/11/22 21:14 100 mls/hr Q24H SARAH Administration Discontinued Medications Generic Name Dose Route Start Last Admin Trade Name Freq PRN Reason Stop Dose Admin Iopamidol
[2022-01-28 21:00] VITALS: BP 131/66; PULSE 73; O2SAT 90
[2022-01-28 21:30] VITALS: BP 124/65; PULSE 69; O2SAT 92
[2022-01-28 21:44] LABS: Lactic Acid 2.1 mmol/L (0.7-2.1)
[2022-01-28 22:16] LABS: Thyroid Stimulating Hormone 1.69 uIU/mL (0.465-4.68)
[2022-01-28 22:53] VITALS: BP 121/72; PULSE 70; RESP 16; TEMP 37.1; O2SAT 97
== END 2022-01-28 22:56 | disposition home or self-care (01) ==
PROVIDERS: Emergency Medicine; Emergency Provider Emergency Medicine
DX: N30.00 Acute cystitis without hematuria (principal); M62.838 Other muscle spasm; E03.9 Hypothyroidism, unspecified; R07.89 Other chest pain; F41.8 Other specified anxiety disorders; E11.9 Type 2 diabetes mellitus without complications; I10 Essential (primary) hypertension; M81.0 Age-related osteoporosis without current pathological fracture; E78.5 Hyperlipidemia, unspecified; Z79.899 Other long term (current) drug therapy
CPT/HCPCS: 71045; 74177; 80053; 81001; 82150; 83605; 83690; 84145; 84443; 84484; 85025; 85651; 86140; 87040; 87077; 87086; 87088; 87186; 93005; 96365; 96375; 99284; J0696; Q9967

== ENCOUNTER → 2022-02-01 09:37 | Outpatient (CLI) | payer MEDICARE, MEDICAID, SELFPAY ==
--- NOTE | 2022-02-01 09:42 | XR_ITS ---
FINAL REPORT CLINICAL HISTORY: bilat knee pain FINDINGS: RIGHT KNEE 3 views of the right knee were obtained. There is no acute fracture or dislocation. There is marked narrowing of the medial and lateral compartment joint spaces. There is significant depression of the medial tibial plateau. There are ossific densities at the medial joint space measuring up to 2.4 cm and is probably due to sequela of old fracture. There is moderate patellofemoral joint space narrowing. IMPRESSION: Advanced narrowing of the medial and lateral compartment joint spaces with depression of the medial tibial plateau. Ossific densities consistent with old fractures. Reviewed, Interpreted and Dictated by Aly Alan MD Transcribed by Juana Wasserman Authenticated by Aly Alan MD on 02/01/2022 11:15:26 AM [facility]
--- NOTE | 2022-02-01 09:42 | XR_ITS ---
FINAL REPORT CLINICAL HISTORY: bilat knee pain FINDINGS: LEFT KNEE 3 views of the left knee were obtained. Note is made that two of the views are incorrectly marked as a right knee. There is no acute fracture or dislocation. There is moderately advanced narrowing of the lateral compartment joint space. There is subchondral sclerosis. There is advanced narrowing of the patellofemoral joint space. There are osteophytes along the undersurface of the patella. 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 Reviewed, Interpreted and Dictated by Aly Alan MD Transcribed by Juana Wasserman Authenticated by Aly Alan MD on 02/01/2022 11:15:29 AM [facility]
== END ==
PROVIDERS: PCP Family Medicine; Visit Provider Orthopaedic Surgery
DX: M25.562 Pain in left knee (principal); M25.561 Pain in right knee
CPT/HCPCS: 73562

== ENCOUNTER → 2023-06-20 12:59 | Outpatient (CLI) | payer MEDICARE, MEDICAID, SELFPAY ==
--- NOTE | 2023-06-20 13:12 | CT_ITS ---
FINAL REPORT TECHNIQUE: Multiple axial CT sections were performed from the foramen magnum to the vertex. Coronal reformatted images were also obtained. Precontrast and postcontrast injection images were obtained. This study was performed with technique to keep radiation doses as low as reasonably achievable, (ALARA). Individualized dose reduction techniques using automated exposure control or adjustment of mA and/or kV according to the patient size were employed. CLINICAL HISTORY: HEADACHES COMPARISON: 06/26/2019 FINDINGS: The ventricles are normal in size. Mild ventricular low densities present, which are compatible in this age group with chronic ischemic/gliotic microvascular change. There is no evidence of hemorrhage. No masses are identified. No extra-axial fluid collection is seen. The sinuses are normal. No osseous abnormality is seen on the bone window images. Postcontrast images demonstrate no abnormal enhancement. 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 No acute intracranial abnormality is identified. Reviewed, Interpreted and Dictated by Pratik Hodge III, MD Transcribed by Noreen Campos Authenticated and [facility]
== END ==
PROVIDERS: PCP Family Medicine; Visit Provider Family Medicine
DX: R51.9 Headache, unspecified (principal)
CPT/HCPCS: 70470; Q9966

== ENCOUNTER → 2023-07-19 16:40 | Outpatient (CLI) | payer MEDICARE, MEDICAID, SELFPAY ==
[2023-07-19 17:30] LABS: Basophils % 0.5 % (0.1-2.0); Eosinophils # 0.3 K/mm3 (0.0-0.4); Eosinophils % 8.5 % (0.1-12.0); Hematocrit 44.8 % (37.0-47.0); Hemoglobin 14.8 g/dL (12.2-16.2); Lymphocytes # 1.2 K/mm3 (0.7-4.5); Mean Corpuscular HGB Conc 33.1 g/dL (31.8-35.4); Mean Corpuscular Hemoglobin 36.7 pg (27.0-31.2); Mean Corpuscular Volume 110.9 fl (81-99); Mean Platelet Volume 9.4 fl (7.4-10.4); Monocytes # 0.2 K/mm3 (0.1-1.0); Monocytes % 5.2 % (1.7-9.3); Neutrophils # 1.4 K/mm3 (1.8-7.8); Neutrophils % 45.7 % (37.0-80.0); Platelet Count 118 K/mm3 (142-424); Red Blood Count 4.04 M/mm3 (4.20-5.40); Red Cell Distribution Width 15.8 % (11.5-17.5)
== END ==
PROVIDERS: PCP Family Medicine; Visit Provider Family Medicine
DX: E87.6 Hypokalemia (principal)
CPT/HCPCS: 85025

== ENCOUNTER → 2023-07-21 12:12 | Outpatient (CLI) | payer MEDICARE, MEDICAID, SELFPAY ==
[2023-07-21 13:36] LABS: Alanine Aminotransferase 30 U/L (12-78); Albumin Level 3.3 g/dl (3.5-5.0); Albumin/Globulin Ratio 1.1 (1.1-1.8); Alkaline Phosphatase 40 U/L (38-126); Anion Gap 10.1 mEq/L (5-15); Aspartate Amino Transferase 36 U/L (14-36); Bilirubin,Total 0.4 mg/dl (0.2-1.3); Calcium 9.5 mg/dl (8.4-10.2); Carbon Dioxide 33 mmol/L (22.0-30.0); Chloride 101 mmol/L (98-107); Globulin 2.9 g/dL (1.3-3.2); Glucose 139 mg/dl (74-100); Potassium 4.1 mmoL/L (3.5-5.1); Sodium 140 mmol/L (136-145); Total Protein,Serum 6.2 g/dl (6.3-8.2)
[2023-07-21 15:02] LABS: Blood Urea Nitrogen 20 mg/dl (7-17); Estimated Glomerular Filt Rate 69 ml/min (>60); GFR (African American) 83 ML/MIN (>60)
== END ==
PROVIDERS: PCP Family Medicine; Visit Provider Family Medicine
DX: E11.9 Type 2 diabetes mellitus without complications (principal)
CPT/HCPCS: 80053

== ENCOUNTER → 2023-08-09 23:00 | Outpatient (CLI) | payer MEDICARE, MEDICAID, SELFPAY ==
[2023-08-10 01:36] LABS: Basophils % 0.5 % (0.1-2.0); Eosinophils # 0.2 K/mm3 (0.0-0.4); Eosinophils % 5.5 % (0.1-12.0); Hematocrit 41.5 % (37.0-47.0); Hemoglobin 13.8 g/dL (12.2-16.2); Lymphocytes # 1.1 K/mm3 (0.7-4.5); Lymphocytes % 39.5 % (10-50); Mean Corpuscular HGB Conc 33.2 g/dL (31.8-35.4); Mean Corpuscular Hemoglobin 36.9 pg (27.0-31.2); Mean Corpuscular Volume 111.1 fl (81-99); Mean Platelet Volume 9.5 fl (7.4-10.4); Monocytes # 0.1 K/mm3 (0.1-1.0); Monocytes % 5.3 % (1.7-9.3); Neutrophils # 1.3 K/mm3 (1.8-7.8); Neutrophils % 49.2 % (37.0-80.0); Platelet Count 123 K/mm3 (142-424); Red Blood Count 3.73 M/mm3 (4.20-5.40); Red Cell Distribution Width 16.5 % (11.5-17.5); White Blood Count 2.7 K/mm3 (4.8-10.8)
== END ==
PROVIDERS: PCP Family Medicine; Visit Provider Family Medicine
DX: R71.8 Other abnormality of red blood cells (principal)
CPT/HCPCS: 85025

== ENCOUNTER → 2023-08-17 18:03 | Outpatient (CLI) | payer MEDICARE, MEDICAID, SELFPAY ==
[2023-08-17 20:22] LABS: Alanine Aminotransferase 26 U/L (12-78); Albumin Level 3.3 g/dl (3.5-5.0); Albumin/Globulin Ratio 1.1 (1.1-1.8); Alkaline Phosphatase 40 U/L (38-126); Aspartate Amino Transferase 43 U/L (14-36); Bilirubin,Total 0.6 mg/dl (0.2-1.3); Blood Urea Nitrogen 18 mg/dl (7-17); Calcium 9.2 mg/dl (8.4-10.2); Carbon Dioxide 30 mmol/L (22.0-30.0); Chloride 102 mmol/L (98-107); Estimated Glomerular Filt Rate 60 ml/min (>60); GFR (African American) 73 ML/MIN (>60); Globulin 2.9 g/dL (1.3-3.2); Glucose 93 mg/dl (74-100); Sodium 139 mmol/L (136-145); Total Protein,Serum 6.2 g/dl (6.3-8.2)
== END ==
PROVIDERS: PCP Family Medicine; Visit Provider Family Medicine
DX: R74.01 Elevation of levels of liver transaminase levels (principal)
CPT/HCPCS: 80053

== ENCOUNTER → 2023-10-04 13:40 | Outpatient (CLI) | payer MEDICARE, MEDICAID, SELFPAY ==
[2023-10-04 14:53] LABS: Basophils % 0.6 % (0.1-2.0); Eosinophils # 0.1 K/mm3 (0.0-0.4); Eosinophils % 4.5 % (0.1-12.0); Hematocrit 45.5 % (37.0-47.0); Hemoglobin 14.8 g/dL (12.2-16.2); Lymphocytes % 40.9 % (10-50); Mean Corpuscular HGB Conc 32.4 g/dL (31.8-35.4); Mean Corpuscular Hemoglobin 38.4 pg (27.0-31.2); Mean Corpuscular Volume 118.4 fl (81-99); Mean Platelet Volume 10.2 fl (7.4-10.4); Monocytes # 0.2 K/mm3 (0.1-1.0); Monocytes % 9.8 % (1.7-9.3); Neutrophils % 44.2 % (37.0-80.0); Platelet Count 106 K/mm3 (142-424); Red Blood Count 3.84 M/mm3 (4.20-5.40); Red Cell Distribution Width 14.8 % (11.5-17.5); White Blood Count 2.3 K/mm3 (4.8-10.8)
[2023-10-04 16:09] LABS: Alanine Aminotransferase 25 U/L (12-78); Albumin Level 3.3 g/dl (3.5-5.0); Albumin/Globulin Ratio 1.1 (1.1-1.8); Alkaline Phosphatase 54 U/L (38-126); Anion Gap 6.3 mEq/L (5-15); Aspartate Amino Transferase 53 U/L (14-36); Bilirubin,Total 0.7 mg/dl (0.2-1.3); Blood Urea Nitrogen 31 mg/dl (7-17); Calcium 9.1 mg/dl (8.4-10.2); Carbon Dioxide 35 mmol/L (22.0-30.0); Chloride 104 mmol/L (98-107); Estimated Glomerular Filt Rate 69 ml/min (>60); GFR (African American) 83 ML/MIN (>60); Globulin 2.9 g/dL (1.3-3.2); Glucose 134 mg/dl (74-100); Potassium 4.3 mmoL/L (3.5-5.1); Sodium 141 mmol/L (136-145); Total Protein,Serum 6.2 g/dl (6.3-8.2)
[2023-10-04 16:38] LABS: Thyroid Stimulating Hormone 0.79 uIU/mL (0.465-4.68)
== END ==
LOC: LAB.DROPOF 13:41
PROVIDERS: PCP Family Medicine; Visit Provider Family Medicine
DX: M48.02 Spinal stenosis, cervical region; E03.9 Hypothyroidism, unspecified
CPT/HCPCS: 80053; 84443; 85025

== ENCOUNTER 2023-10-24 07:07 | Outpatient (CLI) | payer MEDICARE, MEDICAID, SELFPAY ==
--- NOTE | 2023-10-24 07:13 | CT_ITS ---
FINAL REPORT CLINICAL HISTORY: hx of breast cancer COMPARISON: 06/20/2023 FINDINGS: Axial images of the head were obtained without contrast. Coronal reformatted images were also obtained. This study was performed with techniques to keep radiation doses as low as reasonably achievable (ALARA). Individualized dose reduction techniques using automated exposure control or adjustment of mA and/or kV according to the patient''s size were employed. There is generalized age-appropriate atrophy. Periventricular low-attenuation areas are seen consistent with mild chronic ischemic changes. There is no evidence of intracranial hemorrhage or mass. There is no evidence of acute infarct. There is no evidence of shift of the midline structures. No skull abnormality is seen on the bone window images. IMPRESSION: Atrophy and mild periventricular chronic ischemic changes. No acute intracranial abnormality identified. Reviewed, Interpreted and Dictated by Pratik Hodge III, MD Transcribed by Nanette Smyth Authenticated and [facility]
--- NOTE | 2023-10-24 07:13 | CT_ITS ---
FINAL REPORT TECHNIQUE: Thin section axial CT images with coronal and sagittal reformats were performed through the neck. This study was performed with techniques to keep radiation doses as low as reasonably achievable (ALARA). Individualized dose reduction techniques using automated exposure control or adjustment of mA and/or kV according to the patient''s size were employed. CLINICAL HISTORY: BREAST CANCER FINDINGS: The nasopharynx, oropharynx, hypopharynx, and larynx are unremarkable. No adenopathy or mass lesion is present . Thyroid gland is unremarkable. There are diffuse degenerative changes in the cervical spine. There is moderate scarring in the lung apices. There is a right apical nodule measuring 7 mm. Several other nodules are seen in the lung apices. There is aneurysmal dilatation of the ascending aorta measuring 4.3 cm IMPRESSION: Nodules as detailed above. Recommend chest CT with contrast to further evaluate. Aneurysmal dilatation of the ascending aorta. Reviewed, Interpreted and Dictated by Pratik Hodge III, MD Transcribed by Nanette Smyth Authenticated and [facility]
--- NOTE | 2023-10-24 07:18 | MM_ITS ---
PROCEDURE INFORMATION: Exam: US Left Breast, Complete MG Left Diagnostic Breast Tomosynthesis Exam date and time: 10/24/2023 8:27 AM Age: 82 years old Clinical indication: Biopsy-proven carcinoma in the left breast. TECHNIQUE: Imaging protocol: Complete ultrasound of all four quadrants of the left breast and the retroareolar regions, including ultrasound of the axilla when performed. Left Diagnostic tomosynthesis and 2D mammography including computer-aided detection (CAD) when performed. Unilateral or bilateral exam. The study is limited by the patient's inability to fully cooperate with the examination COMPARISON: US BREAST LIMITED LEFT 04/27/2023 11:46 AM FINDINGS: MAMMOGRAPHY: The breast tissue is composed of scattered areas of fibroglandular density. Stellate mass in the posterior left breast containing a clip from prior biopsy has increased in size previously measuring 2.0 x 2.2 cm and currently 2.8 x 2.3 cm. This is the site of biopsy-proven carcinoma. In the middle third of the left lower inner quadrant is a new ovoid 0.4 cm mass adjacent to a 0.3 cm mass No skin thickening or axillary adenopathy. ULTRASOUND: Sonographic images of the left upper outer quadrant 11 cm from the nipple demonstrates a biopsy-proven stellate carcinoma measuring 3.0 x 2.8 x 3.0 cm. In April 2022 3 the mass measured 2.2 x 1.7 x 1.3 cm. No other solid or cystic masses are noted in the left breast. No axillary adenopathy. IMPRESSION: Interval increase in size of a biopsy-proven carcinoma in the left outer quadrant. Two additional subcentimeter ovoid masses in the middle to posterior third of the left lower inner quadrant a not seen on sonography and are of unclear etiology. Is has been stated in the intake sheet that the patient refuses treatment. Therefore, a six-month follow-up diagnostic mammogram is recommended continued close surveillance unless otherwise clinically indicated ASSESSMENT: BI-RADS Category 6: Known Biopsy-Proven Malignancy
== END 2023-10-24 23:59 ==
LOC: RAD 07:08
PROVIDERS: PCP Family Medicine; Visit Provider Internal Medicine Medical Oncology
DX: C50.912 Malignant neoplasm of unspecified site of left female breast (principal); Z17.0 Estrogen receptor positive status [ER+]; N63.20 Unspecified lump in the left breast, unspecified quadrant; R92.8 Other abnormal and inconclusive findings on diagnostic imaging of breast
CPT/HCPCS: 70450; 70490; 76641; 77061; 77065; G0279

== ENCOUNTER 2023-11-20 14:17 | Outpatient (CLI) | payer MEDICARE, MEDICAID, SELFPAY ==
[2023-11-20 14:34] LABS: MANUAL DIFFERENTIAL MANUAL DIFFERENTIAL (MANUAL DIFF)
[2023-11-20 14:39] LABS: Basophils % 0.2 % (0.1-2.0); Eosinophils # 0.1 K/mm3 (0.0-0.4); Eosinophils % 1.7 % (0.1-12.0); Hematocrit 45.2 % (37.0-47.0); Hemoglobin 14.4 g/dL (12.2-16.2); Lymphocytes # 0.9 K/mm3 (0.7-4.5); Lymphocytes % 17.5 % (10-50); Mean Corpuscular HGB Conc 31.9 g/dL (31.8-35.4); Mean Corpuscular Hemoglobin 37.6 pg (27.0-31.2); Mean Corpuscular Volume 118.1 fl (81-99); Mean Platelet Volume 10.2 fl (7.4-10.4); Monocytes # 0.5 K/mm3 (0.1-1.0); Monocytes % 9.8 % (1.7-9.3); Neutrophils # 3.6 K/mm3 (1.8-7.8); Neutrophils % 70.8 % (37.0-80.0); Platelet Count 215 K/mm3 (142-424); Red Blood Count 3.83 M/mm3 (4.20-5.40); White Blood Count 5.2 K/mm3 (4.8-10.8)
[2023-11-20 15:40] LABS: Alanine Aminotransferase 22 U/L (12-78); Albumin Level 2.5 g/dl (3.5-5.0); Albumin/Globulin Ratio 0.8 (1.1-1.8); Alkaline Phosphatase 114 U/L (38-126); Anion Gap 5.8 mEq/L (5-15); Aspartate Amino Transferase 61 U/L (14-36); Blood Urea Nitrogen 21 mg/dl (7-17); Carbon Dioxide 36 mmol/L (22.0-30.0); Chloride 97 mmol/L (98-107); Estimated Glomerular Filt Rate 80 ml/min (>60); GFR (African American) 97 ML/MIN (>60); Glucose 177 mg/dl (74-100); Potassium 3.8 mmoL/L (3.5-5.1); Sodium 135 mmol/L (136-145); Total Protein,Serum 5.5 g/dl (6.3-8.2)
[2023-11-20 15:47] LABS: Lymphocytes % 17 % (10-50); Monocytes % 8 % (2-9); Neutrophils % 75 % (42-76); Total Cells Counted 100
[2023-11-20 15:48] LABS: Anisocytosis 1+; Hypochromasia 1+; Macrocytosis 3+; Platelet Estimate Normal
== END 2023-11-20 23:59 ==
PROVIDERS: PCP Family Medicine; Visit Provider Family Medicine
DX: E87.6 Hypokalemia (principal)
CPT/HCPCS: 80053; 85007; 85014; 85018; 85048; 85049